=== PATIENT | female | born 1990 | race Caucasian/White ===

== ENCOUNTER 2016-12-12 15:01 | Day surgery (SDC) | payer SELFPAY ==
[2016-12-12 15:11] VITALS: BMI 19.1
--- NOTE | 2016-12-12 15:45 | PDOC ---
History of Present Illness - General Chief Complaint: Pain Stated Complaint: BACK PAIN Time Seen by Provider: 12/12/16 15:41 History Source: Patient Exam Limitations: No Limitations - History of Present Illness Travel History: No Initial Comments: 12/12/16 16:42 to emergency department with complaints of lower abdominal pain and cramping for the past 24 hours. has radiating pain to bilateral flanks but states primarily pain is in her lower abdomen's worse on the right than the left. Wasn' t sure about , but states had a normal menstrual period on November 13. Is control and has a 5-year-old son and a 3-year-old son denies vaginal drainage or discharge, denies any dysuria, pain or burning with void. Has had no history of kidney stones or UTI. Has no constipation/diarrhea/problems with bowel however feels nauseated. States pain is spasmodic and is unable to jump without reproduction of pain 12/13/16 14:24 12/13/16 14:24 Timing/Duration: reports: constant, getting worse Quality: reports: mild Abdominal Pain Onset Location: reports: RLQ, LLQ, generalized abdomen Activities at Onset: reports: none Aggravating Factors: improves with: None Past History - Travel Traveled outside of the country in the last 30 days: No Close contact w/someone who was outside of country & ill: No - Past Medical History Allergies/Adverse Reactions: Allergies Allergy/AdvReac Type Severity Reaction Status Date / Time Penicillins AdvReac Severe Rash Verified 12/12/16 15:11 Bee Allergy Severe swelling/ Uncoded 12/12/16 15:11 rash Home Medications: Ambulatory Orders Acetaminophen [Tylenol .Regular Strength -] 650 mg PO Q6H PRN #0 tablet Docusate Sodium [Colace -] 100 mg PO BID PRN #60 capsule 12/13/16 Ibuprofen [Motrin -] 600 mg PO Q6H PRN #0 tablet 12/13/16 Anemia: No Asthma: No Cancer: Yes (CERVICAL CA) Cardiac Disorders: No CVA: No COPD: No CHF: No Dementia: No Diabetes: No GI Disorders: No Disorders: No HTN: No Hypercholesterolemia: No Liver Disease: No Seizures: No Thyroid Disease: No - Suicide/Smoking/Psychosocial Hx Smoking Status: No Smoking History: Never smoked Have you smoked in the past 12 months: No Number of Cigarettes Smoked Daily: 0 Information on smoking cessation initiated: No Hx Alcohol Use: Yes (socially) Drug/Substance Use Hx: No Substance Use Type: None Hx Substance Use Treatment: No Review of Systems - Review of Systems Able to Perform ROS?: Yes Is the patient limited Nigerien proficient: Yes Constitutional: Yes: Symptoms Reported, See HPI, Chills, Fever, Malaise HEENTM: Yes: See HPI. No: Symptoms Reported Respiratory: Yes: Symptoms reported, See HPI, Cough ABD/GI: Yes: Symptoms Reported, See HPI, Nausea, Poor Appetite. No: Constipated , Diarrhea, Vomiting : Yes: Symptoms Reported, See HPI, Flank Pain. No: Burning, Dysuria, Discharge, Frequency Musculoskeletal: Yes: Symptoms Reported Integumentary: Yes: Symptoms Reported, See HPI, Pallor Neurological: Yes: Symptoms reported All Other Systems: Reviewed and Negative *Physical Exam - Vital Signs Last Vital Signs Temp Pulse Resp BP Pulse Ox 98.8 F 107 H 18 104/55 100 12/12/16 15:03 12/12/16 15:03 12/12/16 15:03 12/12/16 15:03 12/12/16 15:03 - Physical Exam General Appearance: Yes: Nourished, Appropriately Dressed, Apparent Distress, Mild Distress, Moderate Distress HEENT: positive: JOSEPH, Normal ENT Inspection, TMs Normal, Pharynx Normal Neck: positive: Supple. negative: Tender Respiratory/Chest: positive: Lungs Clear, Normal Breath Sounds Gastrointestinal/Abdominal: positive: Tender (to lower abdomen with rebound , worse on right than left. States pain radiates around to low back but is primarily right lower quadrant.), Soft, Guarding, Rebound. negative: Organomegaly Musculoskeletal: positive: Normal Inspection. 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 Patient's clinical impression is possible appendicitis versus ovarian pathology. Patient updated to plan to move to main emergency department for further evaluation and treatment. Preliminary labs obtained and ultrasound ordered of pelvis. Given to Dr. Loni Burton and will be transferred to room 12B *DC/Admit/Observation/Transfer Diagnosis at time of Disposition: OR - Discharge Dispostion Condition at time of disposition: Good - Prescriptions
[2016-12-12 16:25] LABS: PH,URINE 8.5 (5.0-8.0); URINE APPEARANCE CLEAR; URINE BILIRUBIN NEGATIVE (NEGATIVE); URINE BLOOD NEGATIVE (NEGATIVE); URINE COLOR LT. YELLOW; URINE GLUCOSE (UA) NEGATIVE (NEGATIVE); URINE KETONE 1+ (NEGATIVE); URINE LEUK ESTERASE NEGATIVE (NEGATIVE); URINE NITRITE NEGATIVE (NEGATIVE); URINE PROTEIN NEGATIVE (NEGATIVE); URINE UROBILINOGEN 0.2 mg/dL (0.2-1.0)
[2016-12-12 17:17] LABS: BASOPHIL 0.1 % (0-2.0); EOSINOPHIL 0.4 % (0-4.5); MCH 30.8 pg (25.7-33.7); MCHC 34.9 g/dl (32.0-36.0); MEAN CELL VOLUME 88.4 fl (80-96); MEAN PLT VOLUME 8.4 fl (7.5-11.1); NEUTROPHILS 85.1 % (42.8-82.8); PLATELET COUNT 224 K/MM3 (134-434); RDW 13.4 % (11.6-15.6); WHITE BLOOD COUNT 10.1 K/mm3 (4.0-10.0)
[2016-12-12] MEDS ORDERED: SODIUM CHLORIDE 1,000 ML IV STA ×2 (17:32→20:35)
--- NOTE | 2016-12-12 17:38 | PDOC ---
*Physical Exam - Vital Signs Last Vital Signs Temp Pulse Resp BP Pulse Ox 98.8 F 107 H 18 104/55 100 12/12/16 15:03 12/12/16 15:03 12/12/16 15:03 12/12/16 15:03 12/12/16 15:03 - Physical Exam Comments: 12/12/16 17:43 GENERAL: Awake, alert, and fully oriented, in no acute distress. Well appearing. HEAD: No signs of trauma EYES: PERRLA, EOMI, sclera anicteric, conjunctiva clear ENT: Auricles normal inspection, hearing grossly normal, nares patent, oropharynx clear without exudates. Moist mucosa NECK: Normal ROM, supple, no lymphadenopathy, JVD, or masses LUNGS: Breath sounds equal, clear to auscultation bilaterally. No wheezes, and no crackles HEART: Regular rate and rhythm, normal S1 and S2, no murmurs, rubs or gallops ABDOMEN: +diffuse abdominal tenderness that is worse in the RLQ. Soft, normoactive bowel sounds. No guarding, no rebound. No masses. MUSCULOSKELETAL: No CVA tenderness EXTREMITIES: Normal range of motion, no edema. No clubbing or cyanosis. No cords, erythema, or tenderness NEUROLOGICAL: Cranial nerves II through XII grossly intact. Normal speech, normal gait SKIN: Warm, Dry, normal turgor, no rashes or lesions noted. <Elma Hughes - Last Filed: 12/12/16 17:43> - Vital Signs Last Vital Signs Temp Pulse Resp BP Pulse Ox 98.8 F 107 H 18 104/55 100 12/12/16 15:03 12/12/16 15:03 12/12/16 15:03 12/12/16 15:03 12/12/16 15:03 <Casper Henry - Last Filed: 12/12/16 20:22> - Vital Signs Last Vital Signs Temp Pulse Resp BP Pulse Ox 98.8 F 107 H 18 104/55 100 12/12/16 15:03 12/12/16 15:03 12/12/16 15:03 12/12/16 15:03 12/12/16 15:03 <Julienne Burton - Last Filed: 12/13/16 17:41> ED Treatment Course - LABORATORY CBC & Chemistry Diagram: 12/12/16 15:55 12/12/16 16:48 - ADDITIONAL ORDERS Additional order review: Laboratory Results 12/12/16 16:15 Urine Color Lt. yellow Urine Appearance Clear Urine pH 8.5 H D Urine Protein Negative Urine Glucose (UA) Negative Urine Ketones 1+ H Urine Blood Negative Urine Nitrite Negative Urine Bilirubin Negative Urine Urobilinogen 0.2 Urine HCG, Qual Negative 12/12/16 15:55 RBC 4.64 MCV 88.4 MCHC 34.9 RDW 13.4 MPV 8.4 Neutrophils % 85.1 H Lymphocytes % 8.5 D Monocytes % 5.9 Eosinophils % 0.4 Basophils % 0.1 <Elma Hughes - Last Filed: 12/12/16 17:43> - LABORATORY CBC & Chemistry Diagram: 12/12/16 15:55 12/12/16 16:48 - ADDITIONAL ORDERS Additional order review: Laboratory Results 12/12/16 12/12/16 16:48 16:15 Sodium 134 L Potassium 3.6 Chloride 100 Carbon Dioxide 28 Anion Gap 6 L BUN 10 Creatinine 0.6 Creat Clearance w eGFR > 60 Random Glucose 80 Calcium 9.6 Total Bilirubin 1.6 H D AST 18 ALT 22 Alkaline Phosphatase 68 D Total Protein 8.2 Albumin 4.4 Lipase 111 Urine Color Lt. yellow Urine Appearance Clear Urine pH 8.5 H D Urine Protein Negative Urine Glucose (UA) Negative Urine Ketones 1+ H Urine Blood Negative Urine Nitrite Negative Urine Bilirubin Negative Urine Urobilinogen 0.2 Urine HCG, Qual Negative 12/12/16 15:55 RBC 4.64 MCV 88.4 MCHC 34.9 RDW 13.4 MPV 8.4 Neutrophils % 85.1 H Lymphocytes % 8.5 D Monocytes % 5.9 Eosinophils % 0.4 Basophils % 0.1 <Casper Henry - Last Filed: 12/12/16 20:22> - LABORATORY CBC & Chemistry Diagram: 12/12/16 15:55 12/12/16 16:48 - ADDITIONAL ORDERS Additional order review: Laboratory Results 12/12/16 16:15 Urine Color Lt. yellow Urine Appearance Clear Urine pH 8.5 H D Urine Protein Negative Urine Glucose (UA) Negative Urine Ketones 1+ H Urine Blood Negative Urine Nitrite Negative Urine Bilirubin Negative Urine Urobilinogen 0.2 Urine HCG, Qual Negative 12/12/16 15:55 RBC 4.64 MCV 88.4 MCHC 34.9 RDW 13.4 MPV 8.4 Neutrophils % 85.1 H Lymphocytes % 8.5 D Monocytes % 5.9 Eosinophils % 0.4 Basophils % 0.1 - RADIOLOGY Radiology Studies Ordered: Category Date Time Status ABDOMEN & PELVIS CT WITH CONTR [CT] Stat CT Scan 12/12/16 17:33 Ordered <Julienne Burton - Last Filed: 12/13/16 17:41> Medical Decision Making - Medical Decision Making 12/12/16 17:43 26 yr old female transferred from fast track with right flank pain and RLQ abdominal pain. RLQ pain feels like cramping, has progressively worsened throughout the day, and is exacerbated with walking She reports associated nausea, but denies vomiting. LMP was on 11/17/16. -Differential includes appendicitis vs kidney stone vs ovarian cyst -Will obtain CT -Pt declines pain medication at this time <Elma Hughes - Last Filed: 12/12/16 17:43> - Medical Decision Making 12/12/16 19:[address] Brewer. F/u CT, reassess. <Julienne Burton - Last Filed: 12/13/16 17:41> *DC/Admit/Observation/Transfer <Elma Hughes - Last Filed: 12/12/16 17:43> <Casper Henry - Last Filed: 12/12/16 20:22> <Julienne Burton - Last Filed: 12/13/16 17:41> Diagnosis at time of Disposition: OR - Discharge Dispostion Disposition: HOME Condition at time of disposition: Good - Prescriptions - Referrals - Patient Instructions - Post Discharge Activity
[2016-12-12 17:41] LABS: ALBUMIN 4.4 g/dl (3.4-5.0); ANION GAP 6 (8-16); BILIRUBIN,TOTAL 1.6 mg/dL (0.2-1.0); CALCIUM 9.6 mg/dL (8.5-10.1); CO2 28 mmol/L (21-32); CREATININE 0.6 mg/dL (0.55-1.02); GLUCOSE,RANDOM 80 mg/dL (74-106); SGOT/AST 18 U/L (15-37); SGPT/ALT 22 U/L (12-78)
[2016-12-12 17:43] LABS: ALK PHOS 68 U/L (45-117); TOT PROT 8.2 g/dl (6.4-8.2)
--- NOTE | 2016-12-12 20:01 | PDOC ---
*Physical Exam - Vital Signs Last Vital Signs Temp Pulse Resp BP Pulse Ox 98.8 F 107 H 18 104/55 100 12/12/16 15:03 12/12/16 15:03 12/12/16 15:03 12/12/16 15:03 12/12/16 15:03 - Physical Exam Comments: 12/12/16 21:24 GENERAL: Awake, alert, and fully oriented, in no acute distress HEAD: No signs of trauma EYES: PERRLA, EOMI, sclera anicteric, conjunctiva clear ENT: Auricles normal inspection, hearing grossly normal, nares patent, oropharynx clear without exudates. Moist mucosa NECK: Normal ROM, supple, no lymphadenopathy, JVD, or masses LUNGS: Breath sounds equal, clear to auscultation bilaterally. No wheezes, and no crackles HEART: Regular rate and rhythm, normal S1 and S2, no murmurs, rubs or gallops ABDOMEN: +Diffuse abdominal tenderness, +Right lower quadrant tenderness. EXTREMITIES: Normal range of motion, no edema. No clubbing or cyanosis. No cords, erythema, or tenderness NEUROLOGICAL: Cranial nerves II through XII grossly intact. Normal speech, normal gait SKIN: Warm, Dry, normal turgor, no rashes or lesions noted. <Casper Henry - Last Filed: 12/12/16 21:23> - Vital Signs Last Vital Signs Temp Pulse Resp BP Pulse Ox 98.8 F 107 H 18 104/55 100 12/12/16 15:03 12/12/16 15:03 12/12/16 15:03 12/12/16 15:03 12/12/16 15:03 <Franklin Brewer - Last Filed: 12/14/16 09:21> ED Treatment Course - LABORATORY CBC & Chemistry Diagram: 12/12/16 15:55 12/12/16 16:48 - ADDITIONAL ORDERS Additional order review: Laboratory Results 12/12/16 12/12/16 16:48 16:15 Sodium 134 L Potassium 3.6 Chloride 100 Carbon Dioxide 28 Anion Gap 6 L BUN 10 Creatinine 0.6 Creat Clearance w eGFR > 60 Random Glucose 80 Calcium 9.6 Total Bilirubin 1.6 H D AST 18 ALT 22 Alkaline Phosphatase 68 D Total Protein 8.2 Albumin 4.4 Lipase 111 Urine Color Lt. yellow Urine Appearance Clear Urine pH 8.5 H D Ur Specific [place] 1.015 Urine Protein Negative Urine Glucose (UA) Negative Urine Ketones 1+ H Urine Blood Negative Urine Nitrite Negative Urine Bilirubin Negative Urine Urobilinogen 0.2 Urine HCG, Qual Negative 12/12/16 15:55 RBC 4.64 MCV 88.4 MCHC 34.9 RDW 13.4 MPV 8.4 Neutrophils % 85.1 H Lymphocytes % 8.5 D Monocytes % 5.9 Eosinophils % 0.4 Basophils % 0.1 - RADIOLOGY Radiograph Interpretation: 12/12/16 21:23 EXAM#: TYPE/EXAM: RESULT: CT/ABDOMEN PELVIS CT WITH CONTR HISTORY PROVIDED: Right lower quadrant pain. Sequential axial images were obtained from the domes of the diaphragms through the symphysis pubis following the administration of intravenous contrast material. The lung bases are clear. The liver, spleen, pancreas, adrenal glands and kidneys demonstrate no significant abnormalities. There is no evidence of intra-abdominal or retroperitoneal lymphadenopathy or fluid collections. There is no evidence of pneumoperitoneum, bowel obstruction or intra-abdominal abscess. The appendix is slightly thickened and hyperemic. This is suggestive of acute appendicitis. No significant inflammatory changes are noted about the appendix. There is no evidence of a periappendiceal abscess. Clinical correlation is advised. There is also an involuting cyst of the right ovary measuring 1.6 cm with a trace amount of free fluid in the right adnexa. Examination of the pelvis demonstrates no evidence of pelvic masses, fluid collections or lymphadenopathy. There is no evidence of acute bony abnormalities. IMPRESSION: 1. Slightly thickened and hyperemic appendix suggesting acute appendicitis. No evidence of prior appendiceal abscess. 2. Involuting right ovarian cyst with trace free fluid in the right adnexal region. Please see above discussion. Reported By: Wilfrid Cadena MD 12/12/162047 <Casper Henry - Last Filed: 12/12/16 21:23> - LABORATORY CBC & Chemistry Diagram: 12/12/16 15:55 12/12/16 16:48 - ADDITIONAL ORDERS Additional order review: Laboratory Results 12/12/16 12/12/16 16:48 16:15 Sodium 134 L Potassium 3.6 Chloride 100 Carbon Dioxide 28 Anion Gap 6 L BUN 10 Creatinine 0.6 Creat Clearance w eGFR > 60 Random Glucose 80 Calcium 9.6 Total Bilirubin 1.6 H D AST 18 ALT 22 Alkaline Phosphatase 68 D Total Protein 8.2 Albumin 4.4 Lipase 111 Urine Color Lt. yellow Urine Appearance Clear Urine pH 8.5 H D Urine Protein Negative Urine Glucose (UA) Negative Urine Ketones 1+ H Urine Blood Negative Urine Nitrite Negative Urine Bilirubin Negative Urine Urobilinogen 0.2 Urine HCG, Qual Negative 12/12/16 15:55 RBC 4.64 MCV 88.4 MCHC 34.9 RDW 13.4 MPV 8.4 Neutrophils % 85.1 H Lymphocytes % 8.5 D Monocytes % 5.9 Eosinophils % 0.4 Basophils % 0.1 <Franklin Brewer - Last Filed: 12/14/16 09:21> Medical Decision Making - Medical Decision Making 12/12/16 19:[address] results to confirm or rule out possible appendicitis. <Casper Henry - Last Filed: 12/12/16 21:23> *DC/Admit/Observation/Transfer - Attestations Scribe Attestion: 12/12/16 20:23 Documentation prepared by Casper Henry, acting as medical transport specialist for Franklin Brewer DO. <Casper Henry - Last Filed: 12/12/16 21:23> - Discharge Dispostion Admit: Yes - Attestations Physician Attestion: 12/12/16 20:01 I, Dr. Franklin Brewer, attest that this document has been prepared under my direction and personally reviewed by me in its entirety. I further attest, that it accurately reflects all work, treatment, procedures and medical decision -making performed by me. <Franklin Brewer - Last Filed: 12/14/16 09:21> Diagnosis at time of Disposition: OR Appendicitis, acute Qualifiers: Acute appendicitis type: other Qualified Code(s): K35.89 - Other acute appendicitis - Discharge Dispostion Condition at time of disposition: Good - Prescriptions - Referrals - Patient Instructions - Post Discharge Activity
--- NOTE | 2016-12-12 21:25 | CONSULT ---
Consult - text type - Consultation Consultation Note: Pt seen and examined in ER. CT c/w appendicitis. Will admit [facility] for OR. See H&P for details.
--- NOTE | 2016-12-12 21:31 | HP ---
Admitting History and Physical - Primary Care Physician PCP: Bertha Walker - Admission Chief Complaint: R flank pain, lower abd pain History of Present Illness: 26yo healthy F with cold (stuffy/runny nose, h/a, lightheaded) starting 3d ago, presents with R flank pain beginning yesterday, associated with subjective fever. Today, she has lower abdominal pain across both sides, associated with anorexia, subjective chills and headache. At work, her boss had her try baking soda and water around 2pm, which helped some, but she came to ER later for persistent pain. In ER, she is afebrile, wbc 10.1, and CT shows slightly thickened, hyperemic appendix suggestive of appendicitis, also with involuting right ovarian cyst and some adnexal fluid. She admits to some nausea and constipation, but denies vomiting, diarrhea, or urinary problems. LMP was ~11/10 , finished 11/17. History Source: Patient Limitations to Obtaining History: No Limitations - Past Medical History Pulmonary: Yes: Asthma (on albuterol prn, no recent attack (pt denies when asked by me - used inhaler prn when had pneumonia 2y ago)), Pneumonia (2y ago) Reproductive: Yes: Other (had LEEP for precancerous cervical cells) ...LMP: 12/15/12 ...: No ...: 2 ...Para: 2 - Past Surgical History Additional Past Surgical History: LEEP (cervix) - Smoking History Smoking history: Never smoked Have you smoked in the past 12 months: No Aproximately how many cigarettes per day: 0 - Alcohol/Substance Use Hx Alcohol Use: Yes (socially) History of Substance Use: reports: None - Social History Usual Living Arrangement: Yes: With Significant Other, With Child (x2) ADL: Independent 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 denies: Recent Change in Vision HENT: reports: Nasal Congestion (cold last 3 days, stuffy/runny nose, headache, lightheaded at times). denies: Difficult Swallowing, Throat Pain Neck: denies: Swollen Glands, Tenderness Cardiovascular: reports: Chest Pain (pressure associated with feeling of suffocation happens occasionally - lasts ~15 mins, occurs when stressed, seen once at urgent care during episode but they didn't find anything), Shortness of Breath (see comment). denies: Palpitations Respiratory: reports: SOB on Exertion ("when I run"). denies: Cough Gastrointestinal: reports: Abdominal Pain (occasional sharp tugging pains from umbilicus downward), Constipation, Nausea (with hpi). denies: Diarrhea, Vomiting Genitourinary: denies: Burning, Dysuria Musculoskeletal: reports: Back Pain (lower - Advil prn). denies: Joint Pain, Muscle Pain Integumentary: denies: Change in Color, Rash Neurological: reports: Headache (with cold last few days). denies: Dizziness Psychiatric: denies: Anxiety, Depression Physical Examination Vital Signs: Vital Signs Temperature 98.8 F 12/12/16 15:03 Pulse Rate 107 H 12/12/16 15:03 Respiratory Rate 18 12/12/16 15:03 Blood Pressure 104/55 12/12/16 15:03 O2 Sat by Pulse Oximetry (%) 100 12/12/16 15:03 Constitutional: Yes: Well Nourished, No Distress, Calm Eyes: Yes: Conjunctiva Clear, EOM Intact HENT: Yes: Atraumatic, Normocephalic Neck: Yes: Supple, Trachea Midline Cardiovascular: Yes: Tachycardia (mild). No: Pulse Irregular Respiratory: Yes: Regular, CTA Bilaterally. No: Wheezes Gastrointestinal: Yes: Normal Bowel Sounds, Soft, Hernia (tiny umbilical palpable defect), Tenderness (RLQ, less LLQ; no moses/guard). No: Distention ...Rectal Exam: Yes: Deferred Renal/: No: CVA Tenderness - Left, CVA Tenderness - Right Musculoskeletal: No: Joint Stiffness, Joint Swelling Extremities: No: Cool, Cyanosis Edema: No Peripheral Pulses WNL: Yes Integumentary: No: Jaundice, Rash Neurological: Yes: Alert, Oriented Psychiatric: Yes: Alert, Oriented Labs: CBC, BMP 12/12/16 15:55 12/12/16 16:48 CMP Sodium 134 mmol/L (136-145) L 12/12/16 16:48 Potassium 3.6 mmol/L (3.5-5.1) 12/12/16 16:48 Chloride 100 mmol/L (98-107) 12/12/16 16:48 Carbon Dioxide 28 mmol/L (21-32) 12/12/16 16:48 Anion Gap 6 (8-16) L 12/12/16 16:48 BUN 10 mg/dL (7-18) 12/12/16 16:48 Creatinine 0.6 mg/dL (0.55-1.02) 12/12/16 16:48 Creat Clearance w eGFR > 60 (>60) 12/12/16 16:48 Random Glucose 80 mg/dL (74-106) 12/12/16 16:48 Calcium 9.6 mg/dL (8.5-10.1) 12/12/16 16:48 Total Bilirubin 1.6 mg/dL (0.2-1.0) H D 12/12/16 16:48 AST 18 U/L (15-37) 12/12/16 16:48 ALT 22 U/L (12-78) 12/12/16 16:48 Alkaline Phosphatase 68 U/L (45-117) D 12/12/16 16:48 Total Protein 8.2 g/dl (6.4-8.2) 12/12/16 16:48 Albumin 4.4 g/dl (3.4-5.0) 12/12/16 16:48 Lipase 111 U/L (73-393) 12/12/16 16:48 Imaging - Results Cat Scan: Report Reviewed, Image Reviewed Problem List - Problems (1) Appendicitis, acute Assessment/Plan: admit 23[facility] NPO/IVF Discussed with patient risks, benefits and alternatives of laparoscopic possible open appendectomy, including but not limited to bleeding, infection, injury to adjacent structures, leak or injury, intraabdominal abscess, need for further procedures; alternatives include antibiotics, delayed or no surgery - risks of this include failure of nonoperative therapy, perforation, sepsis, recurrence. Patient desires to proceed with operation - will take to OR for above. Informed consent signed for same. periop antibiotics anticipate resuming po postop pain meds prn dvt prophylaxis likely d/c home tomorrow when ambulating, voiding, surinder po, oral pain meds Code(s): K35.80 - UNSPECIFIED ACUTE APPENDICITIS Qualifiers: Acute appendicitis type: other Qualified Code(s): K35.89 - Other acute appendicitis
[2016-12-12] MEDS ORDERED: LEVOFLOXACIN 500 MG IVPB 100 ML IVPB ONE ×2 (22:16→22:53)
[2016-12-12] MEDS ORDERED: METRONIDAZOLE 500 MG PREMIXED 100 ML IVPB ONE ×2 (22:17→22:51)
[2016-12-12] MEDS ORDERED: PROPOFOL 20 ML ONE (22:39)
[2016-12-12] MEDS ORDERED: ROCURONIUM BROMIDE 50 MG/5 ML VIAL ONE (22:39)
[2016-12-12] MEDS ORDERED: BUPIVACAINE HCL/PF 0.5% (5MG/ML) 10 ML VIAL ONE (22:41)
[2016-12-12] MEDS ORDERED: LEVOFLOXACIN 500 MG PREMIX BAG IVPB ONE (23:02)
[2016-12-12] MEDS ORDERED: ONDANSETRON 4 MG/2 ML VIAL ONE (23:02)
[2016-12-12] MEDS ORDERED: DEXAMETHASONE SOD PHOSPHATE 4 MG/1 ML VIAL ONE (23:02)
[2016-12-12] MEDS ORDERED: NEOSTIGMINE METHYLSULFATE 0.5 MG/ML - 10 ML MDV ONE (23:48)
[2016-12-12] MEDS ORDERED: LIDOCAINE HCL 1%, 10 MG/ML (20ML VIAL) INF ONE (23:50)
[2016-12-13] MEDS ORDERED: ONDANSETRON 4 MG/2 ML VIAL ONE (00:04)
[2016-12-13] MEDS ORDERED: GLYCOPYRROLATE 0.2 MG/1 ML VIAL ONE (00:04)
[2016-12-13] MEDS ORDERED: ONDANSETRON 4 MG/2 ML VIAL IVPUSH PRN ×2 (00:13→00:30)
[2016-12-13] MEDS ORDERED: HYDROmorphone HCL CARPU-JECT 1 MG/1 ML DISP.SYRIN IVPUSH PRN (00:13)
[2016-12-13] MEDS ORDERED: LACTATED RINGERS SOLUTION 1,000 ML IV SCH ×2 (00:15→00:30)
[2016-12-13] MEDS ORDERED: HYDROmorphone HCL CARPU-JECT 2 MG/1 ML DISP.SYRIN ONE (00:15)
[2016-12-13] MEDS ORDERED: KETOROLAC TROMETHAMINE 30 MG/1 ML VIAL ONE (00:15)
[2016-12-13] MEDS ORDERED: ACETAMINOPHEN 325 MG TABLET (FP) PO PRN ×2 (00:16→00:30)
--- NOTE | 2016-12-13 00:16 | OP ---
Operative Note - Note: Operative Date: 12/12/16 Pre-Operative Diagnosis: acute appendicitis Operation: laparoscopic appendectomy Findings: injected, mildly inflamed appendix, hyperemic at base Post-Operative Diagnosis: Same as Pre-op Surgeon: Anand Parker Anesthesiologist/COMMANDING OFFICER MOTORIZED SQUAD: Morgan Davila Anesthesia: General, Local (10ml 1% lidocaine + 0.5% marcaine) Specimens Removed: appendix to pathology Estimated Blood Loss (mls): 5 Drains & Tubes with Location: Ta removed at end of case Drains, Volume Out (mls): 175 (UOP) Fluid Volume Replaced (mls): 700 (crystalloid) Operative Report Dictated: Yes
[2016-12-13] MEDS ORDERED: oxyCODONE HCL 5 MG TABLET PO PRN ×2 (00:17→00:30)
[2016-12-13] MEDS ORDERED: IBUPROFEN 600 MG TABLET (FP) PO PRN ×2 (00:17→06:00)
[2016-12-13] MEDS ORDERED: morphine CARPU-JECT 2 MG/1 ML DISP.SYRIN IVPUSH PRN ×2 (00:19→00:30)
[2016-12-13] MEDS: METRONIDAZOLE 500 MG PREMIXED 100 ML IVPB SCH ×2 (06:10→10:13)
[2016-12-13] MEDS ORDERED: METRONIDAZOLE 500 MG PREMIXED 100 ML IVPB SCH (07:00)
[2016-12-13 07:21] VITALS: BP 89/50; PULSE 58; TEMP 97.7
--- NOTE | 2016-12-13 09:18 | PN ---
Progress Note (short form) - Note Progress Note: Post op day#1.S/P Laproscopic appendectomy under GA uneventful.Patient stable and has little pain for which she is on medication.No any anesthesia related problem.Patient DC from the anesthesia care.
[2016-12-13] MEDS ORDERED: DOCUSATE SODIUM 100 MG CAPSULE (FP) PO SCH ×2 (10:00)
--- NOTE | 2016-12-13 11:13 | DS ---
Physical Examination Vital Signs: Vital Signs Temperature 97.7 F 12/13/16 07:21 Pulse Rate 58 L 12/13/16 07:21 Respiratory Rate 16 12/13/16 07:21 Blood Pressure 89/50 12/13/16 07:21 O2 Sat by Pulse Oximetry (%) 95 12/13/16 02:37 Constitutional: Yes: Well Nourished, No Distress, Calm Cardiovascular: Yes: Regular Rate and Rhythm. No: Murmur Respiratory: Yes: Regular, CTA Bilaterally Gastrointestinal: Yes: Normal Bowel Sounds, Soft, Tenderness (incisional, no R/G , less RLQ). No: Distention Integumentary: Yes: Incision (x3). No: Rash Wound/Incision: Yes: Steri Strips (under dressings), Dressing Dry and Intact Neurological: Yes: Alert, Oriented Labs: no new labs Discharge Summary Reason For Visit: ACUTE APPENDICITIS Current Active Problems Appendicitis, acute (Acute) Procedures: Principal: laparoscopic appendectomy Hospital Course: 26yo healthy F presented with 1 day of R flank pain migrating to bilateral lower abdominal pain, associated with some anorexia, nausea, headache, f/c, but no diarrhea or vomiting. She tends to constipation. In the ER, she was afebrile with wbc 10.1, and CT showed slightly thickened and hyperemic appendix suggestive of acute appendicitis. She was taken to OR for uneventful laparoscopic appendectomy. Postop course has been unremarkable; she is ambulating, voiding, tolerating diet and with mild discomfort controlled with nonnarcotic oral pain meds. She will be d/c home with lifting restrictions to f/ u in 2 weeks and with her PMD. Time spent on discharge: 35 minutes Condition: Good - Instructions Diet, Activity, Other Instructions: Postoperative instructions: You had a laparoscopic appendectomy on 12/12/[address] Anand Parker of [facility]. Activity: Resume your usual activities gradually, but no heavy exertion or lifting more than 10-15 pounds for 1 month. Remove dressings 48 hours after surgery; sticky tapes underneath will fall off by themselves. You may shower daily starting then, just pat the incision areas dry. No bath or swimming until skin incisions have healed. Eat lightly at first, but advance to your usual diet as tolerated. Pain: For pain, you may use and alternate Tylenol (acetaminophen) and/or ibuprofen every 6 hours each as needed; this means that you can take one OR the other at 3-hour intervals. If you are prescribed a Tylenol/narcotic combination for severe pain, use it instead of plain Tylenol as needed and switch back when your pain starts decreasing. Do not take more than 4000mg of acetaminophen in a day. Take medications as prescribed or indicated on the labeling. Use a stool softener as directed to keep your stools soft and moving; drink plenty of fluids. Follow-up: Call Dr. Parker's office at [phone] to make your postop appointment (Thursday ~2 weeks after surgery). Clinic is held in the [facility] on the first floor of [facility]. Call the office if you have: * increasing pain not responsive to pain medication * fever of 101F or higher * vomiting * unusual or increasing bleeding or drainage from wounds * increasing redness or swelling at wound sites * inability to urinate Also, see your primary medical doctor within 1-2 weeks. Referrals: Bertha Walker NP [Primary Care Provider] - Disposition: HOME - Home Medications Comprehensive Discharge Medication List: Ambulatory Orders Acetaminophen [Tylenol .Regular Strength -] 650 mg PO Q6H PRN #0 tablet Docusate Sodium [Colace -] 100 mg PO BID PRN #60 capsule 12/13/16 Ibuprofen [Motrin -] 600 mg PO Q6H PRN #0 tablet 12/13/16
--- NOTE | 2016-12-14 20:52 | OP ---
DATE OF OPERATION: 12/12/2016 PREOPERATIVE DIAGNOSIS: Acute appendicitis. POSTOPERATIVE DIAGNOSIS: Acute appendicitis. PROCEDURE: Laparoscopic appendectomy. SURGEON: Anand Parker MD ANESTHESIA: General endotracheal and local 10 mL of 1% lidocaine plus 0.5% Marcaine. ESTIMATED BLOOD LOSS: 5 mL. FLUIDS: 700 mL of crystalloid. URINE OUTPUT: 175 mL. SPECIMEN: Appendix to Pathology. FINDINGS: An injected, mildly inflamed appendix, which was hyperemic at the base. DISPOSITION: Stable and extubated to PACU. INDICATIONS FOR PROCEDURE: The patient is a healthy 26-year-old female who presented to the emergency room having had a cold that started 3 days prior, and right flank pain beginning the day prior, associated with subjective fever. The day of presentation, this changed to low abdominal pain across both sides, associated with anorexia, subjective chills, and a headache. In the ER, she was afebrile with a white count of 10.1, and a CT was done that showed a slightly thickened, hyperemic appendix, suggestive of appendicitis, and also an involuting right ovarian cyst with some adnexal fluid. Risks, benefits, and alternatives of laparoscopic possible open appendectomy, including but not limited to bleeding, infection, injury to adjacent structures, leak or intraabdominal abscess and need for further procedures were discussed with the patient, who wished to proceed with OR and signed informed consent for the same. She was given fluids in the emergency room. Antibiotics were given immediately preoperatively in the OR. OPERATIVE TECHNIQUE: The patient was brought to the operating room and laid supine on the operating table. Sequential compression devices were applied to bilateral lower extremities. As the patient is PENICILLIN allergic, 500 mg of levofloxacin and 500 mg of Flagyl were administered immediately prior to surgery. After induction and intubation by Anesthesia, the patient's lower abdomen was prepped and draped in sterile fashion, after a Ta catheter was placed in her bladder, which was removed at the end of the case. A small infraumbilical midline incision was made with a scalpel and carried into subcutaneous tissues with electrocautery until the abdominal wall fascia was identified, scored and elevated with Bridgette clamps. The peritoneum was entered bluntly with the tip of a clamp, and a fingertip used to ensure entry into the abdominal cavity and the absence of any underlying adhesions. A stay stitch of 0 Vicryl was then placed in [id number] fashion in the fascia for later closure, and a Tano trocar introduced directly into the abdominal cavity and secured in place with the balloon. The abdomen was insufflated with carbon dioxide. The patient was placed in Trendelenburg position with the right side planed upward, and the laparoscope inserted to inspect the abdominal cavity. As the omentum and some bowel slid out of the patient's pelvis secondary to positioning, some yellow fluid was visible in the pelvis above the uterus, which was later suctioned out. Two additional 5-mm ports were placed under direct vision in the left lower quadrant and suprapubic areas, and the camera switched to the left lower quadrant port. Graspers were introduced through the other 2 ports, and the small bowel was manipulated medially away from the right lower quadrant, revealing the appendix curled in the right lower quadrant. It was noted to be mildly injected and hyperemic, particularly at the base where it joined the cecum. The appendix was grasped and elevated, and a [place] dissector used to create a window in the mesoappendix at the base. Once this window had been created, a 45 blue load of the Endo NAMAN stapler was introduced and used to transect the appendix right at the cecal junction. The appendix was then again held up, and the mesoappendix transected with a 60 white load of the Endo NAMAN stapler. The appendix was then placed in an EndoCatch bag and retrieved out the umbilical port site and passed off the table for a pathology specimen. Unfortunately, the trocar inadvertently got dropped off of the field, but a fingertip was kept in the umbilical port site to maintain pneumoperitoneum , and the camera kept in the left lower quadrant port to inspect the operative site, which was noted to have no bleeding from the staple lines and no fluid or blood accumulation in the right lower quadrant. The suction waiter/waitress was then used through the suprapubic site to suction the yellow fluid from the pelvis and to lift up the uterus to see whether there was any fluid deeper than that, and there did not appear to be any. Thus the suprapubic port was also removed under direct vision, and then the other port and the camera were also removed from the abdominal cavity, which was exsufflated of carbon dioxide. The stay suture at the umbilical port site was tied to close the fascia there, after the patient was returned to neutral position. Hemostasis was achieved in the port sites with electrocautery where necessary, and local anesthetic was infiltrated into each site. The skin was closed with 4-0 Vicryl subcuticular sutures, including a running at the umbilical site. Benzoin and Steri-Strips were applied to the incisions, and dressings of gauze and Tegaderm were placed over these. The patient's Ta catheter was then removed from her bladder. The counts were correct at the end of the procedure. The patient was then awakened and extubated by Anesthesia. She was moved back to a stretcher and taken to the recovery room in stable condition, having tolerated the procedure well. Felipe [id number] MTDD
--- NOTE | 2016-12-16 14:17 | PATH ---
Surgical Pathology Report Patient Name: LOU RIVAS [facility]. Rec. #: [id number] /Age/Gender: 1990 (Age: 26) / F Account: [id number] Location: [facility] SURGICAL Taken: 12/12/2016 Received: 12/15/2016 Reported: 12/16/2016 Physicians: Anand Parker M.D. Specimen(s) Received APPENDIX Clinical History Acute appendicitis Final Diagnosis APPENDIX, APPENDECTOMY: ACUTE APPENDICITIS. Electronically Signed Gabino Mehta M.D. Gross Description Received in formalin, labeled "appendix" is a 5.2 cm in length vermiform appendix with a stapled margin of resection and attached fat. The serosa is ruth-lala. Sectioning reveals a focally dilated lumen. The wall of the appendix averages 0.2 cm in thickness. Slitter Service And Setter sections are submitted in one cassette. AF/12/15/2016 final/12/15/2016
== END 2016-12-13 15:11 | disposition home or self-care (01) ==
LOC: JER 15:01 → JERFT 15:01 → JASU-SURG 22:46 → J5S 12-13 01:05 → JASU-SURG 12-13 15:11
PROVIDERS: ATTEND Surgery
PROC: 0DTJ4ZZ Resection of Appendix, Percutaneous Endoscopic Approach (ICD-10-PCS; principal; 2016-12-12 22:30)
DX: K35.89 Other acute appendicitis (principal)
CPT/HCPCS: 36415; 74177-TC; 80053; 81003; 83690; 84703; 85025; 88304-TC; 94760; 99284-25

== ENCOUNTER 2018-07-21 10:55 | Inpatient (IN) | payer OTHER ==
[2018-07-21] MEDS ORDERED: OXYTOCIN 20 UNITS in 0.9% NS 20 UNIT/1,000 ML INFUS.BAG IV ONE (11:22)
[2018-07-21] MEDS: OXYTOCIN 20 UNITS in 0.9% NS 20 UNIT/1,000 ML INFUS.BAG IV SCH (11:23)
[2018-07-21] MEDS ORDERED: MISOPROSTOL 200 MCG TABLET PV ONE ×2 (11:30→17:30)
[2018-07-21] MEDS ORDERED: ELECTROLYTE-148 SOLN 1,000 ML IV SCH (11:45)
[2018-07-21] MEDS ORDERED: METHYLERGONOVINE MALEATE 0.2 MG/1 ML AMP IM PRN (11:45)
[2018-07-21] MEDS ORDERED: BENZOCAINE 20% 57 GM BOTTLE TP PRN (11:45)
[2018-07-21] MEDS ORDERED: WITCH HAZEL 50% (TUCKS) 40 PAD/JAR PAD TP PRN (11:45)
[2018-07-21] MEDS ORDERED: BISACODYL 10 MG SUPP.RECT RC PRN (11:45)
[2018-07-21] MEDS ORDERED: BENZOCAINE 28 GM HEMORRHOIDAL OINTMENT TP PRN (11:45)
--- NOTE | 2018-07-21 11:58 | HP ---
Past Medical History - Primary Care Physician PCP:: Merlin Villaseñor - Admission Chief Complaint: labor History of Present Illness: Active labor History Source: Patient Limitations to Obtaining History: Clinical Condition - Past Medical History PEARL HAND: No: Alzheimer's, CVA, Dementia, Migraine, Multiple Sclerosis, Peripheral Neuropathy, Parkinson's, Seizure, Syncope, TIA, Vertigo, Other Cardiovascular: No: AFIB, Aneurysm, Aortic Insufficiency, Aortic Stenosis, CAD, CHF, Deep Vein Thrombosis, HTN, Hyperlipdemia, CT, Mitral Insufficiency, Mitral Stenosis, Murmur, Pulmonary Hypertension, Other Pulmonary: Yes: Asthma (on albuterol prn, no recent attack (pt denies when asked by me - used inhaler prn when had pneumonia 2y ago)), Pneumonia (2y ago) Gastrointestinal: Yes: Other (Append) Hepatobiliary: No: Cirrhosis, Cholelithiasis, Cholecystitis, Choledocholithiasis , Hepatitis A, Hepatitis B, Hepatitis C, Other Renal/: No: Renal Failure, Renal Inusuff, BPH, Cancer, Hematuria, Hemodialysis , Neurogenic Bladder, Renal Calculi, UTI, Other Reproductive: No: Ectopic , Endometriosis, Fibroids, PID, Polycystic Ovary Syndrome, Postmenopausal, Other ...: 5 ...Para: 2 ...Term: 2 ...: 0 ...Induced : 2 ... Weeks Gestation by Dates: 40.0 ...EDC by Lissette: 07/21/18 Heme/Onc: No: Anemia, B12 Deficiency, Bleeding Disorder, Cancer, Current Chemotherapy, Current Radiation Therapy, Hemochromatosis, Hypercoaguable State, Myeloproliferative Synd, Sickle Cell Disease, Sickle Cell Trait, Thrombocytopenia, Other Infectious Disease: No: AIDS, C-Diff, Herpes Zoster, HIV, MRSA, STD's, Tuberculosis, VREF, Other Psych: No: Addictions, Anxiety, Bipolar, Depression, Panic, Psychosis, Schizophrenia, Other Musculoskeletal: No: Bursitis, Chronic low back pain, Hemiparesis, Hemiplegia, Osteoarthritis, Paraplegia, Other Rheumatology: No: Fibromyalgia, Gout, Lupus, Rheumatoid Arthritis, Sarcoidosis, Vasculitis, Other ENT: No: Allergic Rhinitis, Sinusitis, Other Endocrine: No: Bynum's Disease, Mary's Disease, Diabetes Insipidus, Diabetes Mellitus, Hyperparathyroidism, Hyperthyroidism, Hypothyroidism, Osteopenia, SIADH, Other Dermatology: No: Basal Cell, Cellulitis, Eczema, Melanoma, Psoriasis, Squamous Cell, Other - Past Surgical History Past Surgical History: Yes: Appendectomy Hx Myomectomy: No Hx Transabdominal Cerclage: No - Smoking History Smoking history: Never smoked Have you smoked in the past 12 months: No Aproximately how many cigarettes per day: 0 - Alcohol/Substance Use Hx Alcohol Use: Yes (socially) History of Substance Use: reports: None. denies: Cocaine, Heroin, Marijuana, Prescription, Tranquilizers - Social History Usual Living Arrangement: No: Alone, With Spouse, With Parent, With Significant Other, With Child, Assisted Living, Skilled Nursing, Other ADL: Independent Occupation: [employer] Home Medications - Allergies Allergies/Adverse Reactions: Allergies Allergy/AdvReac Type Severity Reaction Status Date / Time Penicillins Allergy Severe Hives Verified 07/21/18 12:04 agave Allergy Severe Hives Uncoded 07/21/18 12:04 Bee Allergy Severe swelling/ Uncoded 07/21/18 12:04 rash - Home Medications Home Medications: Ambulatory Orders Vits96/Iron Fum/Folic [ Tablet] 1 each PO DAILY 07/21/18 Physical Exam - Maternity Constitutional: No: Well Nourished, No Distress, Calm, Anxious, Ashen, Cachectic , Diaphoresis, Mild Distress, Moderate Distress, Severe Distress, Obese, Pallor , Poor Hygeine, Thin, Other HENT: No: WNL, Atraumatic, Normocephalic, Drooling, Epistaxis, Hoarseness, Nasal Congestion, Pharyngeal Erythema, Rhinnorhea, Thrush, Tonsillar Exudate, Other Neck: No: WNL, Supple, Trachea Midline, Decreased ROM, Lymphadenopathy, Rigid, Tenderness, Thyromegaly, Other Breast(s): Yes: Other (declined) - Abdominal Exam/OB Number of Fetuses: Single Presentation: Vertex Contractions: Yes Regularity: Regular Intensity: Strong Monitor Mode: External Category: II - Vaginal Exam/OB Vaginal Bleediing: No Speculum Exam: No Dilatation (cm): 9 Effacement (%): 100 Amniotic Membrane Status: Intact Amniotic Fluid: Yes: Clear Presentation: Vertex/Position Assessment/Plan 27 y/o @ 40.0 wks in active labor ready to deliver -Expectant management
--- NOTE | 2018-07-21 12:16 | PN ---
Delivery - Delivery Vaginal Delivery: No Problems, Spontaneous Type of Anesthesia: None Episiotomy/Laceration: None (Infant's head delivered spontaneously OA and restituted to EVA with compound hand. No nuchal cord and shoulders delivered w/ o difficulty followed by the rest of the body. NICU attending present at delivery. Cord was clamped and cut after delay. Placenta delivered spontaneously and intact, 3VC. Exam revealed no lacerations and fundus is firm. EBL is 150ml and misoprostol 1000mcg administered prophylactically. Sponge/ Instrument count is correct x 2 and confirm by Nurse.) EBL (cc): 150
[2018-07-21 12:24] LABS: ARTERIAL BLD GAS O2 SATURATION 38.7 % (95-98); ARTERIAL BLOOD GAS BASE EXCESS -0.9 meq/l (-2-2); ARTERIAL BLOOD GAS PCO2 34.2 mmHg (35-45)
[2018-07-21 12:26] LABS: ALLENS TEST POSITIVE
[2018-07-21 12:27] LABS: ARTERIAL BLOOD GAS pH 7.43 (7.35-7.45)
[2018-07-21 12:29] LABS: ARTERIAL BLOOD GAS PO2 19.1 mmHg (80-105)
[2018-07-21 12:31] LABS: VENOUS PC02 21.7 mmHg (41-51); VENOUS PH 7.54 (7.31-7.41); VENOUS PO2 30.3 mmHg (30-40)
[2018-07-21 12:35] LABS: BASO % 0.3 % (0-2.0); EOS % 0.1 % (0-4.5); HEMATOCRIT 37.4 % (32.4-45.2); LYMPH % 6.9 % (8-40); MCH 31.5 pg (25.7-33.7); MCHC 34.9 g/dl (32.0-36.0); MEAN CELL VOLUME 90.3 fl (80-96); MEAN PLT VOLUME 8.7 fl (7.5-11.1); NEUT % 88.7 % (42.8-82.8); PLATELET COUNT 196 K/MM3 (134-434); RBC 4.14 M/mm3 (3.60-5.2); RDW 13.9 % (11.6-15.6); WHITE BLOOD COUNT 9.8 K/mm3 (4.0-10.0)
[2018-07-21 12:53] LABS: INR 0.86 (0.83-1.09); PROTHROMBIN TIME (PATIENT) 10.1 SEC (9.7-13.0)
[2018-07-21] MEDS ORDERED: FENTANYL/BUPIVACAINE/NS/PF - PCEA - 50 ML DISP.SYRIN EP ONE (12:56)
[2018-07-21] MEDS ORDERED: IBUPROFEN 600 MG TABLET (FP) PO ONE (12:59)
[2018-07-21 13:04] LABS: ANION GAP 9 MMOL/L (8-16); BLOOD UREA NITROGEN 10 mg/dL (7-18); CALCIUM 8.3 mg/dL (8.5-10.1); CHLORIDE 105 mmol/L (98-107); CO2 23 mmol/L (21-32); CREATININE 0.6 mg/dL (0.55-1.3); GLUCOSE,RANDOM 72 mg/dL (74-106); POTASSIUM 3.9 mmol/L (3.5-5.1); SODIUM 136 mmol/L (136-145)
[2018-07-21] MEDS: IBUPROFEN 600 MG TABLET (FP) PO PRN ×2 (13:10→21:29)
[2018-07-21] MEDS ORDERED: METHYLERGONOVINE MALEATE 0.2 MG/1 ML AMP IM ONE (13:11)
--- NOTE | 2018-07-21 13:31 | PN ---
Progress Note (short form) - Note Progress Note: Patient evaluated for increased vaginal bleeding. She denies any complaints and she is alert and oriented x 3 vitals: WNL as per nursing SVE: 200ml of clots removed from lower uterine segment and fundus is firm, no active bleeding A/P: PPD # 0 with EBL of 350 overall, S/P rectal misoprostol prophylactically -Methergine Series -Close monitoring -Continue pitocin and IV fluid
[2018-07-21] MEDS: METHYLERGONOVINE MALEATE 0.2 MG TABLET (FP) PO SCH ×2 (17:16→21:29)
[2018-07-21] MEDS: ACETAMINOPHEN 325 MG TABLET (FP) PO PRN (21:29)
[2018-07-22] MEDS: METHYLERGONOVINE MALEATE 0.2 MG TABLET (FP) PO SCH ×4 (01:13→13:00)
[2018-07-22 08:41] LABS: EOS % 0.1 % (0-4.5); HEMATOCRIT 30.8 % (32.4-45.2); HEMOGLOBIN 10.8 GM/dL (10.7-15.3); LYMPH % 4.8 % (8-40); MCH 31.6 pg (25.7-33.7); MCHC 34.9 g/dl (32.0-36.0); MEAN CELL VOLUME 90.5 fl (80-96); MEAN PLT VOLUME 8.3 fl (7.5-11.1); MONO % 2.3 % (3.8-10.2); NEUT % 92.8 % (42.8-82.8); PLATELET COUNT 141 K/MM3 (134-434); RDW 13.7 % (11.6-15.6); WHITE BLOOD COUNT 7.2 K/mm3 (4.0-10.0)
[2018-07-22 11:24] LABS: PLATELET ESTIMATE DECREASED
[2018-07-22 14:14] LABS: HEMOGLOBIN 10.9 GM/dL (10.7-15.3); LYMPH % 2.1 % (8-40); MCH 31.1 pg (25.7-33.7); MEAN CELL VOLUME 91.6 fl (80-96); MEAN PLT VOLUME 7.8 fl (7.5-11.1); MONO % 1.5 % (3.8-10.2); NEUT % 96.4 % (42.8-82.8); PLATELET COUNT 140 K/MM3 (134-434); RDW 14.1 % (11.6-15.6)
[2018-07-22 14:26] LABS: INR 0.97 (0.83-1.09); PROTHROMBIN TIME (PATIENT) 11.4 SEC (9.7-13.0)
[2018-07-22] MEDS: ACETAMINOPHEN 325 MG TABLET (FP) PO PRN ×2 (14:27→17:18)
[2018-07-22] MEDS: IBUPROFEN 600 MG TABLET (FP) PO PRN ×2 (14:27→17:18)
[2018-07-22 14:29] LABS: ACTIVATED PTT 29.1 SECONDS (25.2-36.5)
[2018-07-22 14:40] LABS: ALK PHOS 190 U/L (45-117); ANION GAP 8 MMOL/L (8-16); BLOOD UREA NITROGEN 7 mg/dL (7-18); CALCIUM 7.9 mg/dL (8.5-10.1); CHLORIDE 107 mmol/L (98-107); CO2 21 mmol/L (21-32); CREATININE 0.5 mg/dL (0.55-1.3); GLUCOSE,RANDOM 100 mg/dL (74-106); POTASSIUM 3.3 mmol/L (3.5-5.1); SGOT/AST 24 U/L (15-37); SGPT/ALT 18 U/L (13-61); SODIUM 136 mmol/L (136-145)
[2018-07-22 15:01] LABS: ANISOCYTOSIS 0; MACROCYTOSIS 0; PLATELET ESTIMATE DECREASED
[2018-07-22] MEDS ORDERED: AZTREONAM 2 GM in DEXTROSE 5%-WATER 100 ML IVPB ONE (15:15)
[2018-07-22] MEDS ORDERED: VANCOMYCIN 1,000 MG in DEXTROSE 5%-WATER - 250 ML IVPB ONE (15:17)
[2018-07-22] MEDS ORDERED: SODIUM CHLORIDE 1,000 ML IV STA (15:19)
--- NOTE | 2018-07-22 15:20 | RAPID ---
Physical Examination Vital Signs: Vital Signs Temperature 97.7 F 07/22/18 09:21 Pulse Rate 100 H 07/22/18 09:21 Respiratory Rate 18 07/22/18 09:21 Blood Pressure 84/55 L 07/22/18 09:21 O2 Sat by Pulse Oximetry (%) Labs: CBC, BMP 07/22/18 13:53 07/22/18 13:53 Rapid Response - Rapid Response Assessment: Rapid response called at 2:57pm. Rapid response team arrived. As per nursing, patient had vaginal delivery yesterday. At around 2pm, she was reported to have temp of 102. At that time sepsis work-up was done. CBC, blood culture, ua and ID was consulted, IV fluids started. A repeat rectal temp revealed 105F and rapid response was called. Upon arrival of the team, patient was noted to be shivering. Patient reports feeling cold but denies any pain or shortness of breath. VS: BP 100/61 HR 158 RR 20 O2sat 99% on room air General: awake alert, shivering Lungs: clear to auscultation bilaterally Heart: Tachycardic, normal S1, S2 Ext: +2 pulses, no edema OB concrete float maker arrived and pelvic exam done. No retained products noted, minimal bleeding, uterus well contracted. Sepsis, unclear etiology Will order CXR, UA/Urine culture, flu swab lactic acid IV fluids Transabdominal/pelvic ultrasound Aztreonam and Vancomycin started ID consulted.
[2018-07-22 15:43] LABS: EPI CELLS 3.3 /HPF (0-5/HPF); URINE APPEARANCE CLEAR; URINE BACTERIA 59.7 /hpf (NEGATIVE); URINE BILIRUBIN NEGATIVE (NEGATIVE); URINE CASTS 1 /lpf (0-8); URINE COLOR YELLOW; URINE GLUCOSE (UA) NEGATIVE (NEGATIVE); URINE KETONE NEGATIVE (NEGATIVE); URINE LEUK ESTERASE 1+ (NEGATIVE); URINE NITRITE NEGATIVE (NEGATIVE); URINE PROTEIN NEGATIVE (NEGATIVE); URINE RBC 1 /hpf (0-4); URINE UROBILINOGEN 0.2 mg/dL (0.2-1.0); URINE WBC 11 /hpf (0-5)
--- NOTE | 2018-07-22 16:01 | CONSULT ---
Consultation: REQUESTING PROVIDER:Dr. Burnett CONSULT REQUEST: We have been asked to medically evaluate this patient for sepsis. HISTORY OF PRESENT ILLNESS: Patient is a 27 year old female, ([id number]), was admitted yesterday for spontaneous vaginal delivery, presented today with fever and tachycardia. Patient had a vaginal delivery yesterday without complications. Today, patient was noted to have fever of 102F. ID was consulted and sepsis work-up was initiated. A repeat rectal temp revealed 105F with patient having chills and tachycardia at 150s, and rapid response was called. Patient was given Tylenol, IVF boluses and put on cooling blankets. OB quality control checker was present, pelvic exam showed minimal vaginal bleeding, with no retained products of conception noted and uterus well contracted. About an hour later, patient was lying comfortably in bed, reports feeling better, and denies headache, dizziness, chest pain, shortness of breath, nausea, vomiting, abdominal pain, diarrhea, urinary symptoms, vaginal bleeding. REVIEW OF SYSTEMS: CONSTITUTIONAL: fever, chills Absent: diaphoresis, generalized weakness, malaise, loss of appetite, weight change HEENT: Absent: rhinorrhea, nasal congestion, throat pain, throat swelling, difficulty swallowing, mouth swelling, ear pain, eye pain, visual changes CARDIOVASCULAR: Absent: chest pain, syncope, palpitations, irregular heart rate, lightheadedness , peripheral edema RESPIRATORY: Absent: cough, shortness of breath, dyspnea with exertion, orthopnea, wheezing, stridor, hemoptysis GASTROINTESTINAL: Absent: abdominal pain, abdominal distension, nausea, vomiting, diarrhea, constipation, melena, hematochezia GENITOURINARY: Absent: dysuria, frequency, urgency, hesitancy, hematuria, flank pain, genital pain MUSCULOSKELETAL: Absent: myalgia, arthralgia, joint swelling, back pain, neck pain SKIN: Absent: rash, itching, pallor HEMATOLOGIC/IMMUNOLOGIC: Absent: easy bleeding, easy bruising, lymphadenopathy, frequent infections ENDOCRINE: Absent: unexplained weight gain, unexplained weight loss, heat intolerance, cold intolerance NEUROLOGIC: Absent: headache, focal weakness or paresthesias, dizziness, unsteady gait, seizure, mental status changes, bladder or bowel incontinence PSYCHIATRIC: Absent: anxiety, depression, suicidal or homicidal ideation, hallucinations. PHYSICAL EXAMINATION Vital Signs - 24 hr 07/21/18 07/21/18 07/21/18 18:00 20:45 23:49 Temperature 98.5 F 98.6 F 98.8 F Pulse Rate 84 90 114 H Respiratory 20 20 20 Rate Blood Pressure 98/63 100/58 L 100/64 07/22/18 07/22/18 07/22/18 05:36 09:21 13:35 Temperature 98.0 F 97.7 F 102.3 F H Pulse Rate 110 H 100 H Respiratory 20 18 Rate Blood Pressure 100/47 L 84/55 L 07/22/18 07/22/18 07/22/18 14:30 15:15 15:30 Temperature 105.3 F H 105.3 F H 104.7 F H Pulse Rate Respiratory Rate Blood Pressure GENERAL: Awake, alert, and fully oriented, in no acute distress. HEAD: Normal with no signs of trauma. EYES: PERRLA, EOMI, sclera anicteric, conjunctiva clear. EARS, NOSE, THROAT: oropharynx clear without exudates. Dry mucous membranes. NECK: Normal range of motion, supple without lymphadenopathy, JVD, or masses. LUNGS: Breath sounds equal, clear to auscultation bilaterally. HEART: Tachycardia, normal S1 and S2 without murmur, rub or gallop. ABDOMEN: Soft, +suprapubic tenderness, not distended, normoactive bowel sounds, no guarding. MUSCULOSKELETAL: Normal range of motion at all joints. No bony deformities or tenderness. UPPER EXTREMITIES: 2+ pulses, warm, well-perfused. No peripheral edema. LOWER EXTREMITIES: 2+ pulses, warm, well-perfused. No peripheral edema. NEUROLOGICAL: Cranial nerves II-XII intact. Normal speech. Gait not observed. PSYCHIATRIC: Cooperative. Good eye contact. Appropriate mood and affect. SKIN: Warm, dry, normal turgor, no rashes or lesions noted. Laboratory Results - last 24 hr 07/21/18 07/22/18 07/22/18 12:20 07:30 13:53 WBC 7.2 7.0 RBC 3.40 L 3.50 L Hgb 10.8 10.9 Hct 30.8 L D 32.0 L MCV 90.5 91.6 MCH 31.6 31.1 MCHC 34.9 34.0 RDW 13.7 14.1 Plt Count 141 D 140 MPV 8.3 7.8 Absolute Neuts (auto) 6.7 6.8 Neutrophils % 92.8 H 96.4 H Neutrophils % (Manual) 63.4 63.0 Band Neutrophils % 29.8 27.0 Lymphocytes % 4.8 L D 2.1 L D Lymphocytes % (Manual) 3.0 L 4.0 L D Monocytes % 2.3 L 1.5 L Monocytes % (Manual) 4 0 L D Eosinophils % 0.1 0.0 D Eosinophils % (Manual) 0.0 0.0 Basophils % 0.0 0.0 Basophils % (Manual) 0.0 0.0 Myelocytes % (Man) 0 1 D Promyelocytes % (Man) 0 0 Blast Cells % (Manual) 0 0 Nucleated RBC % 0 0 Metamyelocytes 0 5 H D Hypochromia 0 Platelet Estimate Decreased Decreased Polychromasia 0 0 Poikilocytosis 2+ 0 Anisocytosis 0 Microcytosis 0 Macrocytosis 0 PT with INR INR PTT (Actin FS) Sodium Potassium Chloride Carbon Dioxide Anion Gap BUN Creatinine Creat Clearance w eGFR Random Glucose Lactic Acid Calcium Total Bilirubin AST ALT Alkaline Phosphatase Total Protein Albumin RPR Titer Nonreactive 07/22/18 07/22/18 07/22/18 13:53 13:53 13:53 WBC RBC Hgb Hct MCV MCH MCHC RDW Plt Count MPV Absolute Neuts (auto) Neutrophils % Neutrophils % (Manual) Band Neutrophils % Lymphocytes % Lymphocytes % (Manual) Monocytes % Monocytes % (Manual) Eosinophils % Eosinophils % (Manual) Basophils % Basophils % (Manual) Myelocytes % (Man) Promyelocytes % (Man) Blast Cells % (Manual) Nucleated RBC % Metamyelocytes Hypochromia Platelet Estimate Polychromasia Poikilocytosis Anisocytosis Microcytosis Macrocytosis PT with INR 11.40 INR 0.97 PTT (Actin FS) 29.1 Sodium 136 Potassium 3.3 L Chloride 107 Carbon Dioxide 21 Anion Gap 8 BUN 7 Creatinine 0.5 L Creat Clearance w eGFR 148.00 Random Glucose 100 Lactic Acid 2.2 H* Calcium 7.9 L Total Bilirubin 1.0 AST 24 ALT 18 Alkaline Phosphatase 190 H Total Protein 5.0 L Albumin 2.0 L RPR Titer Active Medications Generic Name Dose Route Start Last Admin Trade Name Freq PRN Reason Stop Dose Admin Acetaminophen 650 mg 07/21/18 11:45 07/22/18 14:27 Tylenol - PO 650 mg Q3H PRN Administration PAIN Benzocaine 1 spray 07/21/18 11:45 Americaine 20% [place] - TP PRN PRN PAIN Benzocaine 1 applic 07/21/18 11:45 Americaine Ointment - TP PRN PRN PAIN Bisacodyl 10 mg 07/21/18 11:45 Dulcolax Suppository - RC PRN PRN CONSTIPATION Oxytocin/Sodium Chloride 20 unit in 1,000 mls @ 125 mls/hr 07/21/18 11:45 04/10 11:23 Normal Saline+20 Units Oxytocin - IV 125 mls/hr ASDIR YONAS Administration Aztreonam 2 gm/ Dextrose 100 mls @ 100 mls/hr 07/22/18 15:15 IVPB 07/22/18 16:14 ONCE ONE Protocol Vancomycin HCl 1,000 mg/ 250 mls @ 166.667 mls/hr 07/22/18 15:17 Dextrose IVPB 07/22/18 16:46 ONCE ONE Protocol Sodium Chloride 1,000 mls @ 1,000 mls/hr 07/22/18 15:19 Normal Saline - IV 07/22/18 16:18 ASDIR STA Sodium Chloride 1,000 mls @ 125 mls/hr 07/22/18 16:19 Normal Saline - IV ASDIR YONAS Ibuprofen 600 mg 07/21/18 11:45 07/22/18 14:27 Motrin - PO 600 mg Q4H PRN Administration PAIN Methylergonovine Maleate 0.2 mg 07/21/18 11:45 Methergine Injection - IM Q4H PRN EXCESSIVE BLEEDING (L&D) Senna/Docusate Sodium 2 tablet 07/22/18 22:00 Pericolace - PO HS PRN CONSTIPATION Witch Aline/Glycerin 1 pad 07/21/18 11:45 Tucks Pads - TP PRN PRN PAIN ASSESSMENT/PLAN: Patient is a 27 year old female, ([id number]), was admitted yesterday for spontaneous vaginal delivery, presented today with fever and tachycardia. #Sepsis, unclear etiology -may be endometritis vs UTI -Lactic acid 2.5, temp 104, tachycardia at 130s, no leukocytosis -Aggressive IV hydration -CXR - no acute pathology -pelvic ultrasound ordered -will trend lactic acid -UA and urine culture pending -Blood cultures pending -Flu swab -ID (Dr. Escobar) consulted. Recommendations appreciated. -Aztreonam 2gm q8, Clindamycin 600mg q8, Vancomycin 1000mg q12 #FEN -IV NS @150cc/hr -Hypokalemia, will replete -routine bmp monitoring -Regular diet #Prophylaxis -early ambulation #Disposition -full code Dispo: We will continue to follow the patient. Thank you for this consultative opportunity. Visit type - Emergency Visit Emergency Visit: No - New Patient This patient is new to me today: Yes Date on this admission: 07/22/18 - Critical Care Critical Care patient: No
[2018-07-22 16:12] LABS: ARTERIAL BLOOD GAS BASE EXCESS -7.1 meq/l (-2-2); ARTERIAL BLOOD GAS PCO2 21.7 mmHg (35-45); ARTERIAL BLOOD GAS PO2 119 mmHg (80-105); ARTERIAL BLOOD GAS pH 7.46 (7.35-7.45)
[2018-07-22] MEDS ORDERED: VANCOMYCIN 1,000 MG in DEXTROSE 5%-WATER - 250 ML IVPB SCH (16:15)
[2018-07-22] MEDS ORDERED: SODIUM CHLORIDE 1,000 ML IV SCH ×2 (16:19→16:50)
--- NOTE | 2018-07-22 16:19 | PN ---
Progress Note (short form) - Note Progress Note: ID CONSULT DICTATED HIGH GRADE FEVER/ CHILLS IN 27 Y/O DAY 1 ? SOURCE ? ENDOMETRITIS PCN ALLERGY AWAIT C/S EMPIRIC VANCOMYCIN/ AZTREONAM / CLINDAMYCIN
[2018-07-22 16:43] LABS: ALLENS TEST POSITIVE
--- NOTE | 2018-07-22 16:58 | CONS ---
DATE OF CONSULTATION: 07/22/2018 INFECTIOUS DISEASE CONSULTATION The patient is a 27-year-old female who was admitted to the hospital on July 21, 2018, at 40 weeks' intrauterine , term, in labor. The patient had a normal spontaneous vaginal delivery . Her course was complicated by vaginal bleeding. Today she developed onset of high-grade fever and chills. She was noted to be tachycardic and hypotensive. She was aggressively resuscitated with fluids. She was seen in followup by MEASUREMENT SPECIALIST, felt not to have retained products of conception. At the present time, she is awake and alert. She denies any focal complaint. Her only complaint was fever and chills. She denies any abdominal pain. No complaints of chest pain, shortness of breath, cough, or sputum production. No dysuria or hematuria. No catheter-related phlebitis or calf tenderness. PAST MEDICAL HISTORY: Positive for asthma and pneumonia. PAST SURGICAL HISTORY: Status post appendectomy. ALLERGIES: PENICILLIN-PATIENT DEVELOPED HIVES MANY YEARS AGO. LABORATORY DATA: White count 7.0, hematocrit 32.0, platelet count 140. BUN 7, creatinine 0.2. Lactic acid 2.2. Alkaline phosphatase 190. INR 0.97. Urinalysis is pending. CHEST X-RAY: No acute infiltrate. Official reading is pending. PHYSICAL EXAMINATION: General: She is awake and alert, in no acute distress. Vital Signs: T-max 105.3, blood pressure 84/65, pulse 100 regular, respirations 18 per minute. Eyes: Sclerae anicteric. Heart: Sounds tachycardic, S1, S2. Lungs: Diminished breath sounds at the bases bilaterally. Abdomen: Soft. No tenderness elicited. Extremities: Negative for edema. Negative Pal sign. IMPRESSION: High-grade fever, hypotension, tachycardia, chills in this 27-year-old female day number normal spontaneous vaginal delivery. Source of fever not clear, possible endometritis. RECOMMENDATIONS: We will await sepsis workup. Empiric antibiotic coverage for endometritis with vancomycin, Azactam, and clindamycin in this PENICILLIN-ALLERGIC patient. Continue IV fluid hydration. Medical consult. Will follow. Thank you for the kind referral. JOSE RAYMOND M.D. [id number]
[2018-07-22] MEDS ORDERED: POTASSIUM CHLORIDE TABS 20 MEQ TABLET.ER (FP) PO ONE (17:35)
--- NOTE | 2018-07-22 20:14 | PN ---
Post Progress Note - Subjective Subjective: 27 yo Para 2 status post vaginal delivery, seen and evaluated. She denies any dizziness nor fatigue. Post Day: 1 Type of Delivery: Vital Signs: Vital Signs Temperature 98.4 F 07/22/18 19:00 Pulse Rate 90 07/22/18 19:00 Respiratory Rate 18 07/22/18 19:00 Blood Pressure 76/45 L 07/22/18 19:00 O2 Sat by Pulse Oximetry (%) Breast Exam: Yes: Soft Uterus: Yes: Fundus Firm Abdomen/GI: Yes: Abdomen soft, Tolerating PO Lochia: Yes: Rubra Lochia, amount: Heavy Perineum: Yes: Intact Activity: Ambulating - Labs Labs: CBC WBC 7.0 K/mm3 (4.0-10.0) 07/22/18 13:53 RBC 3.50 M/mm3 (3.60-5.2) L 07/22/18 13:53 Hgb 10.9 GM/dL (10.7-15.3) 07/22/18 13:53 Hct 32.0 % (32.4-45.2) L 07/22/18 13:53 MCV 91.6 fl (80-96) 07/22/18 13:53 MCH 31.1 pg (25.7-33.7) 07/22/18 13:53 MCHC 34.0 g/dl (32.0-36.0) 07/22/18 13:53 RDW 14.1 % (11.6-15.6) 07/22/18 13:53 Plt Count 140 K/MM3 (134-434) 07/22/18 13:53 MPV 7.8 fl (7.5-11.1) 07/22/18 13:53 Absolute Neuts (auto) 6.8 K/mm3 (1.5-8.0) 07/22/18 13:53 Neutrophils % 96.4 % (42.8-82.8) H 07/22/18 13:53 Neutrophils % (Manual) 63.0 % (42.8-82.8) 07/22/18 13:53 Band Neutrophils % 27.0 % 07/22/18 13:53 Lymphocytes % 2.1 % (8-40) L D 07/22/18 13:53 Lymphocytes % (Manual) 4.0 % (8-40) L D 07/22/18 13:53 Monocytes % 1.5 % (3.8-10.2) L 07/22/18 13:53 Monocytes % (Manual) 0 % (3.8-10.2) L D 07/22/18 13:53 Eosinophils % 0.0 % (0-4.5) D 07/22/18 13:53 Eosinophils % (Manual) 0.0 % (0-4.5) 07/22/18 13:53 Basophils % 0.0 % (0-2.0) 07/22/18 13:53 Basophils % (Manual) 0.0 % (0-2.0) 07/22/18 13:53 Myelocytes % (Man) 1 % (0-2) D 07/22/18 13:53 Promyelocytes % (Man) 0 % (0-2) 07/22/18 13:53 Blast Cells % (Manual) 0 % (0-0) 07/22/18 13:53 Nucleated RBC % 0 % (0-0) 07/22/18 13:53 Metamyelocytes 5 % (0-2) H D 07/22/18 13:53 Hypochromia 0 07/22/18 13:53 Platelet Estimate Decreased 07/22/18 13:53 Polychromasia 0 07/22/18 13:53 Poikilocytosis 0 07/22/18 13:53 Anisocytosis 0 07/22/18 13:53 Microcytosis 0 07/22/18 13:53 Macrocytosis 0 07/22/18 13:53 Assessment/Plan Status post vaginal delivery Anemia Continue care
--- NOTE | 2018-07-22 20:30 | PN ---
Teaching Attending Note Name of Resident: Alyse Caraballo ATTENDING PHYSICIAN STATEMENT I saw and evaluated the patient. I reviewed the resident's note and discussed the case with the resident. I agree with the resident's findings and plan as documented. SUBJECTIVE: seen and examined, patient was a rapid response earlier for hypotension and a fever of 105. patient has improved, temp coming down, BP slightly better. Patient feels great, denies cp, palpitations, n/v/d, sob. OBJECTIVE: Vital Signs Period Temp Pulse Resp BP Sys/Oseguera Pulse Ox Last 24 Hr 97.7 F-105.3 F 90-114 18-20 70-100/42-64 Current Medications Generic Name Dose Route Start Last Admin Trade Name Freq PRN Reason Stop Dose Admin Acetaminophen 650 mg 07/21/18 11:45 07/22/18 17:18 Tylenol - PO 650 mg Q3H PRN Administration PAIN Benzocaine 1 spray 07/21/18 11:45 Americaine 20% [place] - TP PRN PRN PAIN Benzocaine 1 applic 07/21/18 11:45 Americaine Ointment - TP PRN PRN PAIN Bisacodyl 10 mg 07/21/18 11:45 Dulcolax Suppository - RC PRN PRN CONSTIPATION Oxytocin/Sodium Chloride 20 unit in 1,000 mls @ 125 mls/hr 07/21/18 11:45 04/10 11:23 Normal Saline+20 Units Oxytocin - IV 125 mls/hr ASDIR YONAS Administration Vancomycin HCl 1,000 mg/ 250 mls @ 166.667 mls/hr 07/22/18 16:15 07/22/18 17: 13 Dextrose IVPB 166.667 mls/hr Q12H YONAS Administration Protocol Aztreonam 2 gm/ Dextrose 100 mls @ 100 mls/hr 07/22/18 18:00 07/22/18 20:32 IVPB 100 mls/hr Q8H-IV YONAS Administration Protocol Clindamycin Phosphate 600 mg in 50 mls @ 100 mls/hr 07/22/18 18:00 Cleocin 600 Mg Premix Ivpb - IVPB Q8H-IV YONAS Protocol Sodium Chloride 1,000 mls @ 150 mls/hr 07/22/18 16:50 Normal Saline - IV ASDIR YONAS Ibuprofen 600 mg 07/21/18 11:45 07/22/18 17:18 Motrin - PO 600 mg Q4H PRN Administration PAIN Methylergonovine Maleate 0.2 mg 07/21/18 11:45 Methergine Injection - IM Q4H PRN EXCESSIVE BLEEDING (L&D) Senna/Docusate Sodium 2 tablet 07/22/18 22:00 Pericolace - PO HS PRN CONSTIPATION Witch Aline/Glycerin 1 pad 07/21/18 11:45 Tucks Pads - TP PRN PRN PAIN Laboratory Last Values WBC 7.0 K/mm3 (4.0-10.0) 07/22/18 13:53 RBC 3.50 M/mm3 (3.60-5.2) L 07/22/18 13:53 Hgb 10.9 GM/dL (10.7-15.3) 07/22/18 13:53 Hct 32.0 % (32.4-45.2) L 07/22/18 13:53 MCV 91.6 fl (80-96) 07/22/18 13:53 MCH 31.1 pg (25.7-33.7) 07/22/18 13:53 MCHC 34.0 g/dl (32.0-36.0) 07/22/18 13:53 RDW 14.1 % (11.6-15.6) 07/22/18 13:53 Plt Count 140 K/MM3 (134-434) 07/22/18 13:53 MPV 7.8 fl (7.5-11.1) 07/22/18 13:53 Absolute Neuts (auto) 6.8 K/mm3 (1.5-8.0) 07/22/18 13:53 Neutrophils % 96.4 % (42.8-82.8) H 07/22/18 13:53 Neutrophils % (Manual) 63.0 % (42.8-82.8) 07/22/18 13:53 Band Neutrophils % 27.0 % 07/22/18 13:53 Lymphocytes % 2.1 % (8-40) L D 07/22/18 13:53 Lymphocytes % (Manual) 4.0 % (8-40) L D 07/22/18 13:53 Monocytes % 1.5 % (3.8-10.2) L 07/22/18 13:53 Monocytes % (Manual) 0 % (3.8-10.2) L D 07/22/18 13:53 Eosinophils % 0.0 % (0-4.5) D 07/22/18 13:53 Eosinophils % (Manual) 0.0 % (0-4.5) 07/22/18 13:53 Basophils % 0.0 % (0-2.0) 07/22/18 13:53 Basophils % (Manual) 0.0 % (0-2.0) 07/22/18 13:53 Myelocytes % (Man) 1 % (0-2) D 07/22/18 13:53 Promyelocytes % (Man) 0 % (0-2) 07/22/18 13:53 Blast Cells % (Manual) 0 % (0-0) 07/22/18 13:53 Nucleated RBC % 0 % (0-0) 07/22/18 13:53 Metamyelocytes 5 % (0-2) H D 07/22/18 13:53 Hypochromia 0 07/22/18 13:53 Platelet Estimate Decreased 07/22/18 13:53 Polychromasia 0 07/22/18 13:53 Poikilocytosis 0 07/22/18 13:53 Anisocytosis 0 07/22/18 13:53 Microcytosis 0 07/22/18 13:53 Macrocytosis 0 07/22/18 13:53 PT with INR 11.40 SEC (9.7-13.0) 07/22/18 13:53 INR 0.97 (0.83-1.09) 07/22/18 13:53 PTT (Actin FS) 29.1 SECONDS (25.2-36.5) 07/22/18 13:53 Anticoagulation Therapy No Result Required. 07/22/18 15:55 Puncture Site Left radial 07/22/18 15:55 ABG pH 7.46 (7.35-7.45) H 07/22/18 15:55 ABG pCO2 at Pt Temp 21.7 mmHg (35-45) L 07/22/18 15:55 ABG pO2 at Pt Temp 119 mmHg (80-105) H 07/22/18 15:55 ABG HCO3 15.3 mmol/L (22-27) L 07/22/18 15:55 ABG O2 Sat (Measured) 99.0 % (95-98) H 07/22/18 15:55 ABG O2 Content 12.1 % vol (15-22) L 07/22/18 15:55 ABG Base Excess -7.1 meq/l (-2-2) L 07/22/18 15:55 Ismael Test Positive 07/22/18 15:55 VBG pH 7.54 (7.31-7.41) H 07/21/18 11:21 POC VBG pCO2 21.7 mmHg (41-51) L 07/21/18 11:21 POC VBG pO2 30.3 mmHg (30-40) 07/21/18 11:21 VBG HCO3 18.8 mmol/L (23-29) L 07/21/18 11:21 VBG O2 Sat (Colin) 75.6 % (70-80) 07/21/18 11:21 VBG Base Excess -1.6 meq/l (-2-2) 07/21/18 11:21 O2 Delivery Device No Result Required. 07/22/18 15:55 Oxygen Flow Rate No Result Required. 07/22/18 15:55 Vent Mode No Result Required. 07/22/18 15:55 Vent Rate No Result Required. 07/22/18 15:55 Mechanical Rate No Result Required. 07/22/18 15:55 Pressure Support Vent No Result Required. 07/22/18 15:55 Sodium 136 mmol/L (136-145) 07/22/18 13:53 Potassium 3.3 mmol/L (3.5-5.1) L 07/22/18 13:53 Chloride 107 mmol/L (98-107) 07/22/18 13:53 Carbon Dioxide 21 mmol/L (21-32) 07/22/18 13:53 Anion Gap 8 MMOL/L (8-16) 07/22/18 13:53 BUN 7 mg/dL (7-18) 07/22/18 13:53 Creatinine 0.5 mg/dL (0.55-1.3) L 07/22/18 13:53 Creat Clearance w eGFR 148.00 (>60) 07/22/18 13:53 Random Glucose 100 mg/dL (74-106) 07/22/18 13:53 Lactic Acid 2.2 mmol/L (0.4-2.0) H* 07/22/18 19:00 Calcium 7.9 mg/dL (8.5-10.1) L 07/22/18 13:53 Total Bilirubin 1.0 mg/dL (0.2-1) 07/22/18 13:53 AST 24 U/L (15-37) 07/22/18 13:53 ALT 18 U/L (13-61) 07/22/18 13:53 Alkaline Phosphatase 190 U/L (45-117) H 07/22/18 13:53 Creatine Kinase 72 U/L (26-192) 07/22/18 19:00 Total Protein 5.0 g/dl (6.4-8.2) L 07/22/18 13:53 Albumin 2.0 g/dl (3.4-5.0) L 07/22/18 13:53 Urine Color Yellow 07/22/18 14:35 Urine Appearance Clear 07/22/18 14:35 Urine pH 6.0 (5.0-8.0) D 07/22/18 14:35 Ur Specific [place] 1.005 (1.010-1.035) L 07/22/18 14:35 Urine Protein Negative (NEGATIVE) 07/22/18 14:35 Urine Glucose (UA) Negative (NEGATIVE) 07/22/18 14:35 Urine Ketones Negative (NEGATIVE) 07/22/18 14:35 Urine Blood 3+ (NEGATIVE) H 07/22/18 14:35 Urine Nitrite Negative (NEGATIVE) 07/22/18 14:35 Urine Bilirubin Negative (NEGATIVE) 07/22/18 14:35 Urine Urobilinogen 0.2 mg/dL (0.2-1.0) 07/22/18 14:35 Ur Leukocyte Esterase 1+ (NEGATIVE) H 07/22/18 14:35 Urine WBC (Auto) 11 /hpf (0-5) 07/22/18 14:35 Urine RBC (Auto) 1 /hpf (0-4) 07/22/18 14:35 Urine Casts (Auto) 1 /lpf (0-8) 07/22/18 14:35 U Pathogenic Cast Auto No Result Required. 07/22/18 14:35 U Epithel Cells (Auto) 3.3 /HPF (0-5/HPF) 07/22/18 14:35 U Sm Round Cell (Auto) No Result Required. 07/22/18 14:35 Urine Crystals (Auto) No Result Required. 07/22/18 14:35 Urine Bacteria (Auto) 59.7 /hpf (NEGATIVE) 07/22/18 14:35 RPR Titer Nonreactive (NONREACTIVE) 07/21/18 12:20 Blood Type O POSITIVE 07/21/18 12:20 Antibody Screen Negative 07/21/18 12:20 ALL IMAGING REPORTS REVIEWED, EKG PENDING PHYSICAL EXAM: GENERAL: VERY PLEASANT, IN NAD, nontoxic appearing CVS: S1S2, RRR, NO MRG LUNGS: cta BL, NO W/R/R, UNLABORED ABDOMEN: SOFT, SLIGHTLY DISTENDED, NABS, NONTENDER EXTREMITIES: 2+dpp, NO EDEMA ASSESSMENT AND PLAN: 27 year old female, ([id number]) spontaneous vaginal delivery yesterday, rapid response called today for fevers, tachycardia, and hypotension 1) Sepsis -pancultured -continue with aggressive IVF, has received 2.5 L so far with minimal improvement in BP -chest xray unremarkable -followup pelvic us -ekg pending -follow repeat lactic acid -temperature and HR coming down -antipyretics, cooling blanket -broad spectrum abx-vanco/aztreonam/clinda -monitor closely and if no improvement in BP may need to be transferred to ICU for further management -seen by ob, no POC visualized -night team will follow closely, may need further imaging
[2018-07-22] MEDS: AZTREONAM 2 GM in DEXTROSE 5%-WATER 100 ML IVPB SCH (20:32)
[2018-07-22] MEDS ORDERED: ONDANSETRON 4 MG/2 ML VIAL IVPUSH PRN (21:36)
[2018-07-22] MEDS: CLINDAMYCIN 600MG PREMIX IVPB 600 MG/50 ML BAG IVPB SCH (21:43)
[2018-07-22] MEDS ORDERED: SENNOSIDES/DOCUSATE COMBO (SENNA PLUS) TABLET (UD) PO PRN (22:00)
--- NOTE | 2018-07-22 22:51 | CONSULT ---
Consultation: REQUESTING PROVIDER: Dr Aquilino Morgan CONSULT REQUEST: We have been asked to medically evaluate this patient for sepsis. HISTORY OF PRESENT ILLNESS: This is a 27 year old female with a history of asthma and treated MRSA, post day 1; RAPID response called today due to fever of 105 F; hypotensive; systolic bp in the 70s. She was given IVF, antibiotics (ID consulted), cooling blanket by rapid response team. WBC 7; Lactic acid 2.5 at that time. Bladder US negative. Pressure slightly increased after fluid resuscitation although has remained hypotensive throughout the day. As per PROSPECTING DRILLER patient was not given prophylactic antibiotics prior to delivering due to rapid delivery. Patient admitted to ICU for severe sepsis; PMH: asthma on prn albuterol, hx MRSA (years ago) PSH: appendectomy Social ; denies smoking; drinking /rec drugs; lives with (EMS here), has two other healthy children REVIEW OF SYSTEMS: CONSTITUTIONAL: Positive: fever, Absent: chills, diaphoresis, generalized weakness, malaise, loss of appetite, weight change HEENT: Absent: rhinorrhea, nasal congestion, throat pain, throat swelling, difficulty swallowing, mouth swelling, ear pain, eye pain, visual changes CARDIOVASCULAR: Absent: chest pain, syncope, palpitations, irregular heart rate, lightheadedness , peripheral edema RESPIRATORY: Absent: cough, shortness of breath, dyspnea with exertion, orthopnea, wheezing, stridor, hemoptysis GASTROINTESTINAL: Absent: abdominal pain, abdominal distension, nausea, vomiting, diarrhea, constipation, melena, hematochezia GENITOURINARY: Absent: dysuria, frequency, urgency, hesitancy, hematuria, flank pain, genital pain MUSCULOSKELETAL: Absent: myalgia, arthralgia, joint swelling, back pain, neck pain SKIN: Absent: rash, itching, pallor HEMATOLOGIC/IMMUNOLOGIC: Absent: easy bleeding, easy bruising, lymphadenopathy, frequent infections ENDOCRINE: Absent: unexplained weight gain, unexplained weight loss, heat intolerance, cold intolerance NEUROLOGIC: Absent: headache, focal weakness or paresthesias, dizziness, unsteady gait, seizure, mental status changes, bladder or bowel incontinence PSYCHIATRIC: Absent: anxiety, depression, suicidal or homicidal ideation, hallucinations. PHYSICAL EXAMINATION Vital Signs - 24 hr 07/21/18 07/22/18 07/22/18 23:49 05:36 09:21 Temperature 98.8 F 98.0 F 97.7 F Pulse Rate 114 H 110 H 100 H Respiratory 20 20 18 Rate Blood Pressure 100/64 100/47 L 84/55 L 07/22/18 07/22/18 07/22/18 13:35 14:30 15:15 Temperature 102.3 F H 105.3 F H 105.3 F H Pulse Rate Respiratory Rate Blood Pressure 07/22/18 07/22/18 07/22/18 15:30 16:00 17:00 Temperature 104.7 F H 104 F H 101.6 F H Pulse Rate 100 H Respiratory 20 Rate Blood Pressure 73/50 L 07/22/18 07/22/18 07/22/18 18:00 19:00 20:37 Temperature 100.0 F H 98.4 F 98.8 F Pulse Rate 94 H 90 90 Respiratory 20 18 18 Rate Blood Pressure 70/42 L 76/45 L 72/45 L 07/22/18 07/22/18 21:35 21:54 Temperature 97.3 F L 97.7 F Pulse Rate 91 H 92 H Respiratory 18 18 Rate Blood Pressure 87/46 L 78/50 L GENERAL: Awake, alert, and fully oriented HEAD: Normal with no signs of trauma. EYES: Pupils equal, round and reactive to light, extraocular movements intact, sclera anicteric, conjunctiva clear. No lid lag. EARS, NOSE, THROAT: Ears normal, nares patent, oropharynx clear without exudates. Moist mucous membranes. NECK: Normal range of motion, supple without lymphadenopathy, JVD, or masses. LUNGS: decreased breath sounds at bilateral bases; no crackles or wheeze HEART: tachy and reg rhythm, normal S1 and S2 without murmur, rub or gallop. ABDOMEN: Soft, slightly tender uterus, normoactive bowel sounds, no guarding, no rebound, no masses. No hepatomegaly or splenomegaly. MUSCULOSKELETAL: Normal range of motion at all joints. No bony deformities or tenderness. No CVA tenderness. UPPER EXTREMITIES: 2+ pulses, warm, well-perfused. No cyanosis. No clubbing. Cap refill <2 seconds. No peripheral edema. LOWER EXTREMITIES: 2+ pulses, warm, well-perfused. No calf tenderness. No peripheral edema. NEUROLOGICAL: Cranial nerves II-XII intact. Normal speech. PSYCHIATRIC: Cooperative. Good eye contact. Appropriate mood and affect. SKIN: Warm, dry, normal turgor, no rashes or lesions noted. Laboratory Results - last 24 hr 07/21/18 07/22/18 07/22/18 12:20 07:30 13:53 WBC 7.2 7.0 RBC 3.40 L 3.50 L Hgb 10.8 10.9 Hct 30.8 L D 32.0 L MCV 90.5 91.6 MCH 31.6 31.1 MCHC 34.9 34.0 RDW 13.7 14.1 Plt Count 141 D 140 MPV 8.3 7.8 Absolute Neuts (auto) 6.7 6.8 Neutrophils % 92.8 H 96.4 H Neutrophils % (Manual) 63.4 63.0 Band Neutrophils % 29.8 27.0 Lymphocytes % 4.8 L D 2.1 L D Lymphocytes % (Manual) 3.0 L 4.0 L D Monocytes % 2.3 L 1.5 L Monocytes % (Manual) 4 0 L D Eosinophils % 0.1 0.0 D Eosinophils % (Manual) 0.0 0.0 Basophils % 0.0 0.0 Basophils % (Manual) 0.0 0.0 Myelocytes % (Man) 0 1 D Promyelocytes % (Man) 0 0 Blast Cells % (Manual) 0 0 Nucleated RBC % 0 0 Metamyelocytes 0 5 H D Hypochromia 0 Platelet Estimate Decreased Decreased Polychromasia 0 0 Poikilocytosis 2+ 0 Anisocytosis 0 Microcytosis 0 Macrocytosis 0 PT with INR INR PTT (Actin FS) Anticoagulation Therapy Puncture Site ABG pH ABG pCO2 at Pt Temp ABG pO2 at Pt Temp ABG HCO3 ABG O2 Sat (Measured) ABG O2 Content ABG Base Excess Ismael Test O2 Delivery Device Oxygen Flow Rate Vent Mode Vent Rate Mechanical Rate Pressure Support Vent Sodium Potassium Chloride Carbon Dioxide Anion Gap BUN Creatinine Creat Clearance w eGFR Random Glucose Lactic Acid Calcium Total Bilirubin AST ALT Alkaline Phosphatase Creatine Kinase Total Protein Albumin Urine Color Urine Appearance Urine pH Ur Specific [place] Urine Protein Urine Glucose (UA) Urine Ketones Urine Blood Urine Nitrite Urine Bilirubin Urine Urobilinogen Ur Leukocyte Esterase Urine WBC (Auto) Urine RBC (Auto) Urine Casts (Auto) U Pathogenic Cast Auto U Epithel Cells (Auto) U Sm Round Cell (Auto) Urine Crystals (Auto) Urine Bacteria (Auto) RPR Titer Nonreactive 07/22/18 07/22/18 07/22/18 13:53 13:53 13:53 WBC RBC Hgb Hct MCV MCH MCHC RDW Plt Count MPV Absolute Neuts (auto) Neutrophils % Neutrophils % (Manual) Band Neutrophils % Lymphocytes % Lymphocytes % (Manual) Monocytes % Monocytes % (Manual) Eosinophils % Eosinophils % (Manual) Basophils % Basophils % (Manual) Myelocytes % (Man) Promyelocytes % (Man) Blast Cells % (Manual) Nucleated RBC % Metamyelocytes Hypochromia Platelet Estimate Polychromasia Poikilocytosis Anisocytosis Microcytosis Macrocytosis PT with INR 11.40 INR 0.97 PTT (Actin FS) 29.1 Anticoagulation Therapy Puncture Site ABG pH ABG pCO2 at Pt Temp ABG pO2 at Pt Temp ABG HCO3 ABG O2 Sat (Measured) ABG O2 Content ABG Base Excess Ismael Test O2 Delivery Device Oxygen Flow Rate Vent Mode Vent Rate Mechanical Rate Pressure Support Vent Sodium 136 Potassium 3.3 L Chloride 107 Carbon Dioxide 21 Anion Gap 8 BUN 7 Creatinine 0.5 L Creat Clearance w eGFR 148.00 Random Glucose 100 Lactic Acid 2.2 H* Calcium 7.9 L Total Bilirubin 1.0 AST 24 ALT 18 Alkaline Phosphatase 190 H Creatine Kinase Total Protein 5.0 L Albumin 2.0 L Urine Color Urine Appearance Urine pH Ur Specific [place] Urine Protein Urine Glucose (UA) Urine Ketones Urine Blood Urine Nitrite Urine Bilirubin Urine Urobilinogen Ur Leukocyte Esterase Urine WBC (Auto) Urine RBC (Auto) Urine Casts (Auto) U Pathogenic Cast Auto U Epithel Cells (Auto) U Sm Round Cell (Auto) Urine Crystals (Auto) Urine Bacteria (Auto) RPR Titer 07/22/18 07/22/18 07/22/18 14:35 15:35 15:55 WBC RBC Hgb Hct MCV MCH MCHC RDW Plt Count MPV Absolute Neuts (auto) Neutrophils % Neutrophils % (Manual) Band Neutrophils % Lymphocytes % Lymphocytes % (Manual) Monocytes % Monocytes % (Manual) Eosinophils % Eosinophils % (Manual) Basophils % Basophils % (Manual) Myelocytes % (Man) Promyelocytes % (Man) Blast Cells % (Manual) Nucleated RBC % Metamyelocytes Hypochromia Platelet Estimate Polychromasia Poikilocytosis Anisocytosis Microcytosis Macrocytosis PT with INR INR PTT (Actin FS) Anticoagulation Therapy No Result Required. Puncture Site Left radial ABG pH 7.46 H ABG pCO2 at Pt Temp 21.7 L ABG pO2 at Pt Temp 119 H ABG HCO3 15.3 L ABG O2 Sat (Measured) 99.0 H ABG O2 Content 12.1 L ABG Base Excess -7.1 L Ismael Test Positive O2 Delivery Device No Result Required. Oxygen Flow Rate No Result Required. Vent Mode No Result Required. Vent Rate No Result Required. Mechanical Rate No Result Required. Pressure Support Vent No Result Required. Sodium Potassium Chloride Carbon Dioxide Anion Gap BUN Creatinine Creat Clearance w eGFR Random Glucose Lactic Acid 2.5 H* Calcium Total Bilirubin AST ALT Alkaline Phosphatase Creatine Kinase Total Protein Albumin Urine Color Yellow Urine Appearance Clear Urine pH 6.0 D Ur Specific [place] 1.005 L Urine Protein Negative Urine Glucose (UA) Negative Urine Ketones Negative Urine Blood 3+ H Urine Nitrite Negative Urine Bilirubin Negative Urine Urobilinogen 0.2 Ur Leukocyte Esterase 1+ H Urine WBC (Auto) 11 Urine RBC (Auto) 1 Urine Casts (Auto) 1 U Pathogenic Cast Auto No Result Required. U Epithel Cells (Auto) 3.3 U Sm Round Cell (Auto) No Result Required. Urine Crystals (Auto) No Result Required. Urine Bacteria (Auto) 59.7 RPR Titer 07/22/18 07/22/18 19:00 19:00 WBC RBC Hgb Hct MCV MCH MCHC RDW Plt Count MPV Absolute Neuts (auto) Neutrophils % Neutrophils % (Manual) Band Neutrophils % Lymphocytes % Lymphocytes % (Manual) Monocytes % Monocytes % (Manual) Eosinophils % Eosinophils % (Manual) Basophils % Basophils % (Manual) Myelocytes % (Man) Promyelocytes % (Man) Blast Cells % (Manual) Nucleated RBC % Metamyelocytes Hypochromia Platelet Estimate Polychromasia Poikilocytosis Anisocytosis Microcytosis Macrocytosis PT with INR INR PTT (Actin FS) Anticoagulation Therapy Puncture Site ABG pH ABG pCO2 at Pt Temp ABG pO2 at Pt Temp ABG HCO3 ABG O2 Sat (Measured) ABG O2 Content ABG Base Excess Ismael Test O2 Delivery Device Oxygen Flow Rate Vent Mode Vent Rate Mechanical Rate Pressure Support Vent Sodium Potassium Chloride Carbon Dioxide Anion Gap BUN Creatinine Creat Clearance w eGFR Random Glucose Lactic Acid 2.2 H* Calcium Total Bilirubin AST ALT Alkaline Phosphatase Creatine Kinase 72 Total Protein Albumin Urine Color Urine Appearance Urine pH Ur Specific [place] Urine Protein Urine Glucose (UA) Urine Ketones Urine Blood Urine Nitrite Urine Bilirubin Urine Urobilinogen Ur Leukocyte Esterase Urine WBC (Auto) Urine RBC (Auto) Urine Casts (Auto) U Pathogenic Cast Auto U Epithel Cells (Auto) U Sm Round Cell (Auto) Urine Crystals (Auto) Urine Bacteria (Auto) RPR Titer Active Medications Generic Name Dose Route Start Last Admin Trade Name Freq PRN Reason Stop Dose Admin Acetaminophen 650 mg 07/21/18 11:45 07/22/18 17:18 Tylenol - PO 650 mg Q3H PRN Administration PAIN Benzocaine 1 spray 07/21/18 11:45 Americaine 20% [place] - TP PRN PRN PAIN Benzocaine 1 applic 07/21/18 11:45 Americaine Ointment - TP PRN PRN PAIN Bisacodyl 10 mg 07/21/18 11:45 Dulcolax Suppository - RC PRN PRN CONSTIPATION Chlorhexidine Gluconate 1 applic 07/22/18 22:00 Hibiclens For Decolonization - TP HS YONAS Oxytocin/Sodium Chloride 20 unit in 1,000 mls @ 125 mls/hr 07/21/18 11:45 04/10 11:23 Normal Saline+20 Units Oxytocin - IV 125 mls/hr ASDIR YONAS Administration Vancomycin HCl 1,000 mg/ 250 mls @ 166.667 mls/hr 07/22/18 16:15 07/22/18 17: 13 Dextrose IVPB 166.667 mls/hr Q12H YONAS Administration Protocol Aztreonam 2 gm/ Dextrose 100 mls @ 100 mls/hr 07/22/18 18:00 07/22/18 20:32 IVPB 100 mls/hr Q8H-IV YONAS Administration Protocol Clindamycin Phosphate 600 mg in 50 mls @ 100 mls/hr 07/22/18 18:00 07/22/18 21:43 Cleocin 600 Mg Premix Ivpb - IVPB 100 mls/hr Q8H-IV YONAS Administration Protocol Sodium Chloride 1,000 mls @ 150 mls/hr 07/22/18 16:50 Normal Saline - IV ASDIR YONAS Methylergonovine Maleate 0.2 mg 07/21/18 11:45 Methergine Injection - IM Q4H PRN EXCESSIVE BLEEDING (L&D) Mupirocin 1 applic 07/22/18 22:00 Bactroban Ointment (For Decolonization) - NS 07/27/18 21:59 BID YONAS Senna/Docusate Sodium 2 tablet 07/22/18 22:00 Pericolace - PO HS PRN CONSTIPATION Witch Aline/Glycerin 1 pad 07/21/18 11:45 Tucks Pads - TP PRN PRN PAIN ASSESSMENT/PLAN: This is a 27 year old female with a history of MRSA, Asthma, who is day 1, with high fever with severe sepsis. #severe sepsis with impending septic shock secondary to possible Group B strep vs UTI # day 1 #hx asthma -Patient was adequately fluid resuscitated 30cc/kg although pressers borderline ; -will hold off on pressers for now; monitor BP closely ; will start levophed if MAP does not maintain above 65 -cont IVF -cont IV antibiotics vanc/clindomycin/aztreonam -if continues to spike high fevers can use ibprofen; alternate with Tylenol; ibprofen d/cd for now as she was bleeding a lot as per nurse/ -discussed case PROSPECTING DRILLER; no need for further imaging including vaginal US; as he did not see any contents from vagina -inhaled bronchodilators prn for asthma Dispo: We will continue to follow the patient. Thank you for this consultative opportunity. Visit type - Emergency Visit Emergency Visit: Yes ED Registration Date: 07/21/18 Care time: The patient presented to the Emergency Department on the above date and was hospitalized for further evaluation of their emergent condition. - New Patient This patient is new to me today: Yes Date on this admission: 07/22/18 - Critical Care Critical Care patient: Yes Total Critical Care Time (in minutes): 35 Critical Care Statement: The care of this patient involved high complexity decision making to prevent further life threatening deterioration of the patient 's condition and/or to evaluate & treat vital organ system(s) failure or risk of failure.
[2018-07-22] MEDS: OXYTOCIN 20 UNITS in 0.9% NS 20 UNIT/1,000 ML INFUS.BAG IV SCH (23:47)
[2018-07-22] MEDS: CHLORHEXIDINE GLUCONATE 4% CLEANSER FOR DECOLONIZATION TP SCH (23:48)
[2018-07-22] MEDS: MUPIROCIN 2% TOPICAL OINTMENT FOR DECOLONIZATION NS SCH (23:48)
[2018-07-22] MEDS ORDERED: PT OWN MED DRAWER 7, Y5N ONE (23:56)
[2018-07-22] MEDS ORDERED: INSULIN (NOVOLOG) ASPART 100 UNITS/ML 10ML VIAL ONE (23:57)
[2018-07-23] MEDS ORDERED: MIDAZOLAM HCL 2 MG/2 ML SINGLE DOSE VIAL ONE ×3 (00:32→02:06)
[2018-07-23] MEDS ORDERED: NOREPINEPHRINE BITARTRATE 4 MG/4 ML ML IV ONE (02:28)
[2018-07-23] MEDS ORDERED: NOREPINEPHRINE BITARTRATE 4,000 MCG in DEXTROSE 5%-WATER - 496 ML IV SCH (02:30)
[2018-07-23 03:27] LABS: ARTERIAL BLD GAS O2 SATURATION 86.7 % (95-98); ARTERIAL BLOOD GAS BASE EXCESS -7.1 meq/l (-2-2); ARTERIAL BLOOD GAS PCO2 32.1 mmHg (35-45); ARTERIAL BLOOD GAS PO2 55.4 mmHg (80-105)
[2018-07-23 03:30] LABS: VENOUS PC02 31.7 mmHg (41-51)
[2018-07-23 03:37] LABS: ARTERIAL BLOOD GAS pH 7.35 (7.35-7.45)
[2018-07-23 03:39] LABS: VENOUS PH 7.35 (7.31-7.41)
[2018-07-23] MEDS: CLINDAMYCIN 600MG PREMIX IVPB 600 MG/50 ML BAG IVPB SCH ×3 (04:17→17:43)
[2018-07-23] MEDS: AZTREONAM 2 GM in DEXTROSE 5%-WATER 100 ML IVPB SCH ×2 (04:18→09:32)
[2018-07-23] MEDS: VANCOMYCIN 1 GRAM (PRE-DOCKED) 1,000 MG/250 ML BAG IVPB SCH ×2 (05:50→17:03)
[2018-07-23] MEDS: NOREPINEPHRINE BITARTRATE 8,000 MCG in DEXTROSE 5%-WATER - 492 ML IV SCH (07:00)
[2018-07-23 07:14] LABS: INR 1.14 (0.83-1.09); PROTHROMBIN TIME (PATIENT) 13.5 SEC (9.7-13.0)
[2018-07-23 07:16] LABS: ACTIVATED PTT 30.7 SECONDS (25.2-36.5)
[2018-07-23 07:20] LABS: ANION GAP 7 MMOL/L (8-16); BLOOD UREA NITROGEN 8 mg/dL (7-18); CHLORIDE 119 mmol/L (98-107); CO2 18 mmol/L (21-32); CREATININE 0.4 mg/dL (0.55-1.3); GLUCOSE,RANDOM 103 mg/dL (74-106); MAGNESIUM 1.4 mg/dL (1.8-2.4); PHOSPHOROUS 2.3 mg/dL (2.5-4.9); SODIUM 144 mmol/L (136-145)
[2018-07-23 07:24] LABS: CALCIUM 6.6 mg/dL (8.5-10.1)
[2018-07-23 07:25] LABS: BASO % 0.1 % (0-2.0); EOS % 0.1 % (0-4.5); HEMATOCRIT 28.5 % (32.4-45.2); HEMOGLOBIN 9.7 GM/dL (10.7-15.3); LYMPH % 4.7 % (8-40); MCH 31.5 pg (25.7-33.7); MCHC 34.1 g/dl (32.0-36.0); MEAN CELL VOLUME 92.2 fl (80-96); MONO % 2.2 % (3.8-10.2); NEUT % 92.9 % (42.8-82.8); PLATELET COUNT 166 K/MM3 (134-434); RBC 3.09 M/mm3 (3.60-5.2); RDW 14.3 % (11.6-15.6); WHITE BLOOD COUNT 6.9 K/mm3 (4.0-10.0)
[2018-07-23] MEDS ORDERED: CALCIUM GLUCONATE 10% - 1,000 MG/10 ML VIAL IVPB ONE (07:58)
[2018-07-23] MEDS ORDERED: POTASSIUM PHOSPHATE 20 MM in SODIUM CHLORIDE 250 ML IVPB ONE (07:59)
[2018-07-23] MEDS ORDERED: MAGNESIUM SULF 50% (8.12 MEQ/2 ML-1 GM VIAL) IVPB ONE (08:00)
[2018-07-23] MEDS: MUPIROCIN 2% TOPICAL OINTMENT FOR DECOLONIZATION NS SCH ×2 (09:00→22:45)
[2018-07-23] MEDS ORDERED: PT OWN MED DRAWER 7, Y5N ONE (09:19)
--- NOTE | 2018-07-23 09:40 | PN ---
Progress Note, Physician History of Present Illness: TRANSFERRED TO ICU HYPOTENSIVE ON PRESSORS C/O POST ABDOMINAL DISCOMFORT NO OTHER FOCAL COMPLAINT TEMPS DOWN AFEBRILE [facility] - Current Medication List Current Medications: Active Medications Acetaminophen (Tylenol -) 650 mg PO Q3H PRN PRN Reason: PAIN Last Admin: 07/22/18 17:18 Dose: 650 mg Benzocaine (Americaine 20% [place] -) 1 spray TP PRN PRN PRN Reason: PAIN Benzocaine (Americaine Ointment -) 1 applic TP PRN PRN PRN Reason: PAIN Bisacodyl (Dulcolax Suppository -) 10 mg RC PRN PRN PRN Reason: CONSTIPATION Chlorhexidine Gluconate (Hibiclens For Decolonization -) 1 applic TP HS YONAS Last Admin: 07/22/18 23:48 Dose: 1 applic Aztreonam 2 gm/ Dextrose 100 mls @ 100 mls/hr IVPB Q8H-IV YONAS; Protocol Last Admin: 07/23/18 09:32 Dose: 100 mls/hr Clindamycin Phosphate (Cleocin 600 Mg Premix Ivpb -) 600 mg in 50 mls @ 100 mls /hr IVPB Q8H-IV YONAS; Protocol Last Admin: 07/23/18 04:17 Dose: 100 mls/hr Sodium Chloride (Normal Saline -) 1,000 mls @ 150 mls/hr IV ASDIR YONAS Last Admin: 07/22/18 23:48 Dose: Not Given Vancomycin HCl (Vancomycin (Pre-Docked)) 1,000 mg in 250 mls @ 166.667 mls/hr IVPB Q12H YONAS; Protocol Last Admin: 07/23/18 05:50 Dose: 166.667 mls/hr Norepinephrine Bitartrate 8, (000 mcg/ Dextrose) 500 mls @ 18.75 mls/hr IV TITR YONAS; Protocol Potassium Phosphate 20 mm/ (Sodium Chloride) 256.6667 mls @ 62.5 mls/hr IVPB ONCE ONE Stop: 07/23/18 12:05 Magnesium Sulfate/Dextrose (Magnesium 1gm/D5w -) 1 gm in 100 mls @ 100 mls/hr IVPB Q1H YONAS Stop: 07/23/18 11:59 Mupirocin (Bactroban Ointment (For Decolonization) -) 1 applic NS BID YONAS Stop: 07/27/18 21:59 Last Admin: 07/22/18 23:48 Dose: 1 applic Senna/Docusate Sodium (Pericolace -) 2 tablet PO HS PRN PRN Reason: CONSTIPATION Witch Aline/Glycerin (Tucks Pads -) 1 pad TP PRN PRN PRN Reason: PAIN - Objective Vital Signs: Vital Signs Temperature 98.0 F 07/23/18 07:00 Pulse Rate 72 07/23/18 08:50 Respiratory Rate 20 07/23/18 09:00 Blood Pressure 107/76 07/23/18 08:50 O2 Sat by Pulse Oximetry (%) 100 07/23/18 09:00 Constitutional: Yes: No Distress Eyes: Yes: Conjunctiva Clear Cardiovascular: Yes: Regular Rate and Rhythm, S1, S2 Respiratory: Yes: CTA Bilaterally Gastrointestinal: Yes: Normal Bowel Sounds, Soft. No: Tenderness Extremities: No: Calf Tenderness Edema: No Labs: CBC, BMP 07/23/18 05:30 07/23/18 05:30 INR, PTT INR 1.14 (0.83-1.09) H 07/23/18 05:30 Assessment/Plan STREPTOCOCCAL BACTEREMIA/ SEPSIS SEPTIC SHOCK ? ENDOMETRITIS POST DAY #2 PCN ALLERGY AWAIT C/S CONTINUE VANCOMYCIN/ AZTREONAM/ CLINDAMYCIN PRESSORS ICU MONITORING
[2018-07-23] MEDS: MAGNESIUM 1GM/D5W - 1 GM/100 ML IVPB IVPB SCH ×3 (10:00→12:34)
[2018-07-23 10:03] LABS: ANISOCYTOSIS 0; MACROCYTOSIS 0; PLATELET ESTIMATE NORMAL
--- NOTE | 2018-07-23 11:06 | ECHO ---
Name: LOU RIVAS Exam:Adult Echocardiogram Study Date: 07/23/2018 10:16 AM Age: 27 yrs Reason For Study: r/o valve abnormality Height: 60 in Weight: 116 lb BSA: 1.5 m2 Left Ventricle The left ventricular size, thickness and function are normal. Ejection Fraction = 55-60%. Left Ventri cular Filling pattern is normal for age. Right Ventricle The right ventricle is normal in size and function. Atria Normal left and right atrial size and function. Mitral Valve The mitral valve is normal in structure and function. There is no mitral valve stenosis. There is mil d mitral regurgitation. Tricuspid Valve The tricuspid valve is normal in structure and function. There is mild tricuspid regurgitation. Aortic Valve The aortic valve opens well. No hemodynamically significant valvular aortic stenosis. No aortic regur gitation is present. Pulmonic Valve The pulmonic valve is not well visualized. There is no pulmonic valvular stenosis. Great Vessels The aortic root is normal size. Pericardium/Pleura There is no pericardial effusion. Interpretation Summary The left ventricular size, thickness and function are normal Ejection Fraction = 55-60%. The right ventricle is normal in size and function. There is mild mitral regurgitation. There is mild tricuspid regurgitation. There is no pericardial effusion. MD De La Torre *Mariela 07/23/2018 11:06 AM
--- NOTE | 2018-07-23 11:35 | PN ---
Teaching Attending Note Name of Resident: Hi Garcia ATTENDING PHYSICIAN STATEMENT I saw and evaluated the patient. I reviewed the resident's note and discussed the case with the resident. I agree with the resident's findings and plan as documented. SUBJECTIVE: Pt seen and examined in the ICU. Remains on levophed gtt. Fever curve trending down. Blood cultures growing gram positive cocci in chains. OBJECTIVE: Vital Signs Period Temp Pulse Resp BP Sys/Oseguera Pulse Ox Last 24 Hr 96.5 F-105.3 F 55-109 13-22 70-107/42-82 100-100 Intake & Output 07/20/18 07/21/18 07/22/18 07/23/18 23:59 23:59 23:59 23:59 Intake Total 1150 4500 2000 Output Total 3200 400 Balance 1150 1300 1600 Weight 50.802 kg 53.025 kg Gen: mildly tachypneic with exertion Heart: RRR Lung: decreased breath sounds at the bases Abd: soft, mild TTP lower abdomen Ext: no edema CBC, BMP 07/23/18 05:30 07/23/18 05:30 CXR: small effusions Active Medications Acetaminophen (Tylenol -) 650 mg PO Q3H PRN PRN Reason: PAIN Last Admin: 07/22/18 17:18 Dose: 650 mg Benzocaine (Americaine 20% [place] -) 1 spray TP PRN PRN PRN Reason: PAIN Benzocaine (Americaine Ointment -) 1 applic TP PRN PRN PRN Reason: PAIN Bisacodyl (Dulcolax Suppository -) 10 mg RC PRN PRN PRN Reason: CONSTIPATION Chlorhexidine Gluconate (Hibiclens For Decolonization -) 1 applic TP HS YONAS Last Admin: 07/22/18 23:48 Dose: 1 applic Aztreonam 2 gm/ Dextrose 100 mls @ 100 mls/hr IVPB Q8H-IV YONAS; Protocol Last Admin: 07/23/18 09:32 Dose: 100 mls/hr Clindamycin Phosphate (Cleocin 600 Mg Premix Ivpb -) 600 mg in 50 mls @ 100 mls /hr IVPB Q8H-IV YONAS; Protocol Last Admin: 07/23/18 04:17 Dose: 100 mls/hr Vancomycin HCl (Vancomycin (Pre-Docked)) 1,000 mg in 250 mls @ 166.667 mls/hr IVPB Q12H [facility]; Protocol Last Admin: 07/23/18 05:50 Dose: 166.667 mls/hr Norepinephrine Bitartrate 8, (000 mcg/ Dextrose) 500 mls @ 18.75 mls/hr IV TITR YONAS; Protocol Potassium Phosphate 20 mm/ (Sodium Chloride) 256.6667 mls @ 62.5 mls/hr IVPB ONCE ONE Stop: 07/23/18 12:05 Magnesium Sulfate/Dextrose (Magnesium 1gm/D5w -) 1 gm in 100 mls @ 100 mls/hr IVPB Q1H [facility] Stop: 07/23/18 11:59 Last Admin: 07/23/18 10:30 Dose: 100 mls/hr Sodium Chloride (Normal Saline -) 1,000 mls @ 75 mls/hr IV ASDIR [facility] Mupirocin (Bactroban Ointment (For Decolonization) -) 1 applic NS BID [facility] Stop: 07/27/18 21:59 Last Admin: 07/22/18 23:48 Dose: 1 applic Senna/Docusate Sodium (Pericolace -) 2 tablet PO HS PRN PRN Reason: CONSTIPATION Witch Aline/Glycerin (Tucks Pads -) 1 pad TP PRN PRN PRN Reason: PAIN ASSESSMENT AND PLAN: Gram Positive Bacteremia Septic Shock Lactic Acidosis s/p Asthma - continue antibiotics - f/u cultures - taper pressors to maintain MAP >65 - decrease IVF rate - replete lytes - d/c femoral line once off pressors - PO as tolerated - DVT prophylaxis - continue ICU monitoring critical care time spent in reviewing chart, evaluating patient and formulating plan 35 min
--- NOTE | 2018-07-23 12:09 | PN ---
Teaching Attending Note Name of Resident: Alyse Caraballo ATTENDING PHYSICIAN STATEMENT I saw and evaluated the patient. I reviewed the resident's note and discussed the case with the resident. I agree with the resident's findings and plan as documented. SUBJECTIVE: denies any SOB,has pain in Abd , has discomfort in posterior b/l lower chest when she breaths. no diarrhea . no palpitations. has spotting from vagina OBJECTIVE: NAd, AAOx3. MMM Cv: RRR, HR 60s. no MRG Lungs: CTAB MS: TTP over b/l paraspinal muscls in lower thoracix area. No tenderness over the spine Abd: soft, Nd, TTP in bilateral lower quadrants and suprapubic area. no rebound tenderness. Ext : no edema or erythema ASSESSMENT AND PLAN: 27 y/o lady with h/o asthma , s/p vaginal delivery on 07/21 who developed septic shock omn 07/22 and was admitted to ICU 1- Septic shock, with G+ cocci bacteremia. + strep throat. possible endometritis . - cont vanco , aztreonam and clinda - check vanco trough before 4th dose - repeat blood cx - cont IVF and taper down Levophed. - US reviewed, no retained products 2- hypocalcemia : corrcted ca 8.2 . monitor hypomagnesemia : replete hypophosphatemia ; replete 3- h/o Asthma, not active ICU level of care
[2018-07-23] MEDS: SODIUM CHLORIDE 1,000 ML IV SCH (12:12)
[2018-07-23 12:27] VITALS: BMI 22.6
--- NOTE | 2018-07-23 14:09 | PN ---
Progress Note (short form) - Note Progress Note: CLUB FORMER ppd 1, s/p , sepsis, has no c/o , noexcess vaginal bleeding, no dysuria CBC, BMP 07/23/18 05:30 07/23/18 05:30 Last Vital Signs Temp Pulse Resp BP Pulse Ox 98.3 F 105 H 20 111/76 100 07/23/18 10:00 07/23/18 12:00 07/23/18 12:00 07/23/18 12:00 07/23/18 09:00 abdomen soft, non tender , no cva uterus firm, non tender lochia mild ,no odor no calf tenderness impression , possible GBS sepsis , r/o yti plan cont iv antibiotic monitor BP wean off vasoprssor
--- NOTE | 2018-07-23 15:29 | PN ---
Progress Note (short form) - Note Progress Note: ICU Day 2 Overnight Events: Pt admitted to the ICU. Crash femoral line was placed by medicine attending for hypotension. No additional fevers after midnight. Pt endorses generalized abdominal pain this morning. Denies chest pain, SOB, nausea/vomiting. Per outside records from [facility]: GBS + on genital swap dated 25 June 2018 - Resistant to clindamycin. Sensitive to Levofloxacin (MARCOS <=0.5), Penicillin, and Vancomycin (MARCOS 0.5). OBJECTIVE: Vital Signs Period Temp Pulse Resp BP Sys/Oseguera Pulse Ox Last 24 Hr 96.5 F-104.7 F 55-109 13-22 70-111/42-82 100-100 Intake & Output 07/23/18 07/23/18 07/23/18 06:59 14:59 22:59 Intake Total 3000 Output Total 400 Balance 2600 Weight 52.617 kg Intake: IV 3000 Normal Saline - 1,000 ml 3000 @ 1000 mls/hr IV ASDIR STA Rx#:[id number] Output: Urine 400 Void 400 Other: Voiding Method Bedpan Bowel Movement No Height 1.52 m Body Mass Index (BMI) 22.6 Weight Measurement Method Built in Bedscale Lines: - Left Femoral Triple Lumen (Placed 23 Jul 2018). Day 1. Drains: - None Supplemental Oxygen: Low flow nasal cannula. Physical Exams: GENERAL: The patient is awake, alert, and fully oriented, in no acute distress. HEAD: Normal with no signs of trauma. LUNGS: Breath sounds equal, clear to auscultation bilaterally, no wheezes, no crackles, no accessory muscle use. HEART: Regular rate and rhythm, S1, S2 without murmur, rub or gallop. ABDOMEN: Tender diffusely but greater in lower quadrants; no rebound or guarding. Soft and nondistended. EXTREMITIES: 2+ pulses, warm, well-perfused, no edema. NEUROLOGICAL: Normal speech, gait not observed. PSYCH: Normal mood, normal affect. SKIN: Warm and dry. Drips: - No Anti Infectives: - Vancomycin (Started 22 Jul 2018), Day 1 - Clindamycin (Started 22 Jul 2018), Day 1 - Aztreonam (Started 22 Jul 2018), Day 1 Microbiology 07/22/18 13:53 Blood - Peripheral Venous Blood Culture - Preliminary Streptococcus Pyogenes Grp A 07/22/18 13:59 Blood - Peripheral Venous Blood Culture - Preliminary Pending Organism Active Medications Acetaminophen (Ofirmev Injection -) 1,000 mg IVPB Q6H PRN PRN Reason: PAIN LEVEL 6-10 Benzocaine (Americaine 20% [place] -) 1 spray TP PRN PRN PRN Reason: PAIN Benzocaine (Americaine Ointment -) 1 applic TP PRN PRN PRN Reason: PAIN Bisacodyl (Dulcolax Suppository -) 10 mg RC PRN PRN PRN Reason: CONSTIPATION Chlorhexidine Gluconate (Hibiclens For Decolonization -) 1 applic TP HS YONAS Last Admin: 07/22/18 23:48 Dose: 1 applic Aztreonam 2 gm/ Dextrose 100 mls @ 100 mls/hr IVPB Q8H-IV YONAS; Protocol Last Admin: 07/23/18 09:32 Dose: 100 mls/hr Clindamycin Phosphate (Cleocin 600 Mg Premix Ivpb -) 600 mg in 50 mls @ 100 mls /hr IVPB Q8H-IV YONAS; Protocol Last Admin: 07/23/18 10:00 Dose: 100 mls/hr Vancomycin HCl (Vancomycin (Pre-Docked)) 1,000 mg in 250 mls @ 166.667 mls/hr IVPB Q12H YONAS; Protocol Last Admin: 07/23/18 05:50 Dose: 166.667 mls/hr Norepinephrine Bitartrate 8, (000 mcg/ Dextrose) 500 mls @ 18.75 mls/hr IV TITR YONAS; Protocol Sodium Chloride (Normal Saline -) 1,000 mls @ 75 mls/hr IV ASDIR YONAS Last Admin: 07/23/18 12:12 Dose: 75 mls/hr Mupirocin (Bactroban Ointment (For Decolonization) -) 1 applic NS BID YONAS Stop: 07/27/18 21:59 Last Admin: 07/22/18 23:48 Dose: 1 applic Senna/Docusate Sodium (Pericolace -) 2 tablet PO HS PRN PRN Reason: CONSTIPATION Witch Aline/Glycerin (Tucks Pads -) 1 pad TP PRN PRN PRN Reason: PAIN ASSESSMENT / PLAN: 27 year 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 Developed septic shock on day 1. GBS positive NOT adequately treated before vaginal delivery. Neuro (& Psych): - A/O x4. Not on sedating drips. Endocrine: - Hypocalcemic, hypomagnesemic, hypophosphatemic on morning labs. Replenished. - Will trend electrolytes. Cardiovascular: - Hypotensive and tachycardic. Suspect secondary to septic shock from GBS infection. MAPs maintained with Norepinephrine drip. Goal to titrate off today. Pulm / Resp: - H/o asthma. Stable on room air. Nasal cannula PRN to maintain goal of SPO2 >94 %. Genitourinary: - GBS positive on outpatient swab. Did not receive antibiotics during delivery. Continue antibiotics. Reproductive: - Delivering OBGYN Dr. Merlin Villaseñor - rounding by Dr. Giron - Requested nurse consultation to assist pt with breast pumping. To discard milk as pt is receiving antibiotics at this time. - Suspect diffuse abdominal pain is secondary to discomfort. Hematologic: - Mildly anemic today. Suspect secondary to delivery and dilutional effect given large amount of IV fluid receivined in past 24 hours. Will trend. Infectious Disease: - Consulted Dr. Escobar. - Septic shock. Suspect secondary to GBS infection. Clinically improving. Clearing lactic acid. - Blood cultures positive bottles for gram positive cocci in chains in both aerobic and anaerobic. Suspect group B strep. Repeat blood cultures ordered by primary team this morning. Will repeat blood cultures tomorrow morning as repeat cultures were drawn before pt had received 24hrs of antibiotics. - ID team requested Echo to evaluate for valvular vegetation. None noted. Low suspicion for endocarditis. - Group A strep rapid throat swab positive. Unsure of clinical significance as pt does sore throat. Considering GAS toxic shock but this seems less likely given known GBS status. - Antibiotics per ID team. H/o penicillin allergy. FEN: - IVF NS, rate decreased as pt appeared to be developing small bibasilar pleural effusions on CXR this AM. - Regular diet Prophylaxis: - DVT: SCDs - GI: Not indicated. Dispo: Pt to remain in ICU for close hemodynamic monitoring while receiving vasoactive agents. Hi Garcia MD, PGY1 ICU Consult Service Critical Care Total Critical Care Time (in minutes): 45 Critical Care Statement: The care of this patient involved high complexity decision making to prevent further life threatening deterioration of the patient 's condition and/or to evaluate & treat vital organ system(s) failure or risk of failure.
[2018-07-23] MEDS ORDERED: IBUPROFEN 800 MG/8 ML IJ IVPB ONE (16:32)
--- NOTE | 2018-07-23 17:09 | PROC ---
Procedure Note Procedure: Asked for help in CVC placement 2/2 failed R-groin attempt. Using sterile technique introduced needle and cannulated vein but patient kicked despite valium for sedation (given previously by ICU team) and 1% lido infiltrated by procedural training and development assistant. Aborted and held pressure. Using angiocath successfully canulated L-femoral vein and introduced guidewire, nicked, dilated, smoothly threaded over CVC without any issues and removed wire and sutrueed into place. Tegaderm applied Confirmed with VBG Present were ICU nursing, nursing cottage supervisor, floor resident team, icu resident , medical students [place] to be started once confirmed
[2018-07-23] MEDS ORDERED: DEXTROSE 5%-WATER 100 ML IVPB ONE (17:32)
[2018-07-23] MEDS: CEFTRIAXONE 2 GM in DEXTROSE 5%-WATER 100 ML IVPB SCH ×2 (17:43)
--- NOTE | 2018-07-23 17:43 | PN ---
Physical Exam: SUBJECTIVE: Patient seen and examined at bedside this morning. Overnight, patient was noted to be hypotensive and transferred to the ICU. IV fluid boluses were given, but patient remained hypotensive. Levophed drip was started. This morning, patient reports feeling better, but has some bilateral chest and back pain when taking deep breaths, as wells as abdominal discomfort. Otherwise denies chills, headache, dizziness, shortness of breath, diarrhea, vaginal bleeding. OBJECTIVE: Vital Signs Temperature 98.3 F 07/23/18 10:00 Pulse Rate 106 H 07/23/18 16:00 Respiratory Rate 20 07/23/18 16:00 Blood Pressure 100/63 07/23/18 16:00 O2 Sat by Pulse Oximetry (%) 100 07/23/18 09:00 GENERAL: Awake, alert, and fully oriented, in no acute distress. HEAD: Normal with no signs of trauma. EYES: PERRLA, EOMI, sclera anicteric, conjunctiva clear. EARS, NOSE, THROAT: oropharynx clear without exudates. Moist mucous membranes. NECK: Normal range of motion, supple without lymphadenopathy, JVD, or masses. LUNGS: Breath sounds equal, clear to auscultation bilaterally. HEART:RRR, normal S1 and S2 without murmur, rub or gallop. ABDOMEN: Soft, diffuse tenderness, not distended, normoactive bowel sounds, no guarding. MUSCULOSKELETAL: Normal range of motion at all joints. No bony deformities or tenderness. UPPER EXTREMITIES: 2+ pulses, warm, well-perfused. No peripheral edema. LOWER EXTREMITIES: 2+ pulses, warm, well-perfused. No peripheral edema. NEUROLOGICAL: Cranial nerves II-XII intact. Normal speech. Gait not observed. PSYCHIATRIC: Cooperative. Good eye contact. Appropriate mood and affect. SKIN: Warm, dry, normal turgor, no rashes or lesions noted. Laboratory Results - last 24 hr 07/22/18 07/22/18 07/22/18 19:00 19:00 23:00 WBC RBC Hgb Hct MCV MCH MCHC RDW Plt Count MPV Absolute Neuts (auto) Neutrophils % Neutrophils % (Manual) Band Neutrophils % Lymphocytes % Lymphocytes % (Manual) Monocytes % Monocytes % (Manual) Eosinophils % Eosinophils % (Manual) Basophils % Basophils % (Manual) Myelocytes % (Man) Promyelocytes % (Man) Blast Cells % (Manual) Nucleated RBC % Metamyelocytes Hypochromia Platelet Estimate Polychromasia Poikilocytosis Anisocytosis Microcytosis Macrocytosis Acanthocytes (Spur) PT with INR INR PTT (Actin FS) Puncture Site ABG pH ABG pCO2 at Pt Temp ABG pO2 at Pt Temp ABG HCO3 ABG O2 Sat (Measured) ABG O2 Content ABG Base Excess Ismael Test VBG pH POC VBG pCO2 POC VBG pO2 VBG HCO3 VBG O2 Sat (Colin) VBG Base Excess Oxygen Flow Rate Sodium Potassium Chloride Carbon Dioxide Anion Gap BUN Creatinine Creat Clearance w eGFR Random Glucose Lactic Acid 2.2 H* Calcium Phosphorus Magnesium Creatine Kinase 72 Influenza A (Rapid) Negative Influenza B (Rapid) Negative Group A Strep Rapid 07/22/18 07/23/18 07/23/18 23:00 03:00 03:00 WBC RBC Hgb Hct MCV MCH MCHC RDW Plt Count MPV Absolute Neuts (auto) Neutrophils % Neutrophils % (Manual) Band Neutrophils % Lymphocytes % Lymphocytes % (Manual) Monocytes % Monocytes % (Manual) Eosinophils % Eosinophils % (Manual) Basophils % Basophils % (Manual) Myelocytes % (Man) Promyelocytes % (Man) Blast Cells % (Manual) Nucleated RBC % Metamyelocytes Hypochromia Platelet Estimate Polychromasia Poikilocytosis Anisocytosis Microcytosis Macrocytosis Acanthocytes (Spur) PT with INR INR PTT (Actin FS) Puncture Site No Result Required. ABG pH 7.35 ABG pCO2 at Pt Temp 32.1 L ABG pO2 at Pt Temp 55.4 L ABG HCO3 17.2 L ABG O2 Sat (Measured) 86.7 L ABG O2 Content 11.0 L ABG Base Excess -7.1 L Ismael Test No Result Required. VBG pH 7.35 POC VBG pCO2 31.7 L POC VBG pO2 60.0 H VBG HCO3 17.2 L VBG O2 Sat (Colin) 89.3 H VBG Base Excess -7.1 L Oxygen Flow Rate No Result Required. Sodium Potassium Chloride Carbon Dioxide Anion Gap BUN Creatinine Creat Clearance w eGFR Random Glucose Lactic Acid Calcium Phosphorus Magnesium Creatine Kinase Influenza A (Rapid) Influenza B (Rapid) Group A Strep Rapid Positive 07/23/18 07/23/18 07/23/18 05:30 05:30 05:30 WBC 6.9 RBC 3.09 L Hgb 9.7 L Hct 28.5 L MCV 92.2 MCH 31.5 MCHC 34.1 RDW 14.3 Plt Count 166 MPV 9.0 D Absolute Neuts (auto) 6.4 Neutrophils % 92.9 H Neutrophils % (Manual) 46.5 Band Neutrophils % 35.7 Lymphocytes % 4.7 L D Lymphocytes % (Manual) 6.9 L D Monocytes % 2.2 L Monocytes % (Manual) 0 L Eosinophils % 0.1 D Eosinophils % (Manual) 0.0 Basophils % 0.1 D Basophils % (Manual) 0.0 Myelocytes % (Man) 3 H D Promyelocytes % (Man) 0 Blast Cells % (Manual) 0 Nucleated RBC % 0 Metamyelocytes 8 H D Hypochromia 0 Platelet Estimate Normal Polychromasia 0 Poikilocytosis 1+ Anisocytosis 0 Microcytosis 0 Macrocytosis 0 Acanthocytes (Spur) 1+ PT with INR INR PTT (Actin FS) Puncture Site ABG pH ABG pCO2 at Pt Temp ABG pO2 at Pt Temp ABG HCO3 ABG O2 Sat (Measured) ABG O2 Content ABG Base Excess Ismael Test VBG pH POC VBG pCO2 POC VBG pO2 VBG HCO3 VBG O2 Sat (Colin) VBG Base Excess Oxygen Flow Rate Sodium 144 Potassium 4.0 Chloride 119 H Carbon Dioxide 18 L Anion Gap 7 L BUN 8 Creatinine 0.4 L Creat Clearance w eGFR 191.47 Random Glucose 103 Lactic Acid 1.3 Calcium 6.6 L* Phosphorus 2.3 L Magnesium 1.4 L Creatine Kinase Influenza A (Rapid) Influenza B (Rapid) Group A Strep Rapid 07/23/18 05:30 WBC RBC Hgb Hct MCV MCH MCHC RDW Plt Count MPV Absolute Neuts (auto) Neutrophils % Neutrophils % (Manual) Band Neutrophils % Lymphocytes % Lymphocytes % (Manual) Monocytes % Monocytes % (Manual) Eosinophils % Eosinophils % (Manual) Basophils % Basophils % (Manual) Myelocytes % (Man) Promyelocytes % (Man) Blast Cells % (Manual) Nucleated RBC % Metamyelocytes Hypochromia Platelet Estimate Polychromasia Poikilocytosis Anisocytosis Microcytosis Macrocytosis Acanthocytes (Spur) PT with INR 13.50 H INR 1.14 H PTT (Actin FS) 30.7 Puncture Site ABG pH ABG pCO2 at Pt Temp ABG pO2 at Pt Temp ABG HCO3 ABG O2 Sat (Measured) ABG O2 Content ABG Base Excess Ismael Test VBG pH POC VBG pCO2 POC VBG pO2 VBG HCO3 VBG O2 Sat (Colin) VBG Base Excess Oxygen Flow Rate Sodium Potassium Chloride Carbon Dioxide Anion Gap BUN Creatinine Creat Clearance w eGFR Random Glucose Lactic Acid Calcium Phosphorus Magnesium Creatine Kinase Influenza A (Rapid) Influenza B (Rapid) Group A Strep Rapid Active Medications Generic Name Dose Route Start Last Admin Trade Name Freq PRN Reason Stop Dose Admin Acetaminophen 1,000 mg 07/23/18 11:45 Ofirmev Injection - IVPB Q6H PRN PAIN LEVEL 6-10 Benzocaine 1 spray 07/21/18 11:45 Americaine 20% [place] - TP PRN PRN PAIN Benzocaine 1 applic 07/21/18 11:45 Americaine Ointment - TP PRN PRN PAIN Bisacodyl 10 mg 07/21/18 11:45 Dulcolax Suppository - RC PRN PRN CONSTIPATION Chlorhexidine Gluconate 1 applic 07/22/18 22:00 07/22/18 23:48 Hibiclens For Decolonization - TP 1 applic HS YONAS Administration Clindamycin Phosphate 600 mg in 50 mls @ 100 mls/hr 07/22/18 18:00 07/23/18 10:00 Cleocin 600 Mg Premix Ivpb - IVPB 100 mls/hr Q8H-IV YONAS Administration Protocol Norepinephrine Bitartrate 8, 500 mls @ 18.75 mls/hr 07/23/18 07:30 07/23/18 16:00 000 mcg/ Dextrose IV 0 mcg/min TITR YONAS 0 mls/hr Titration Protocol 5 MCG/MIN Sodium Chloride 1,000 mls @ 75 mls/hr 07/23/18 11:22 07/23/18 12:12 Normal Saline - IV 75 mls/hr ASDIR YONAS Administration Ceftriaxone Sodium 2 gm/ 100 mls @ 200 mls/hr 07/23/18 17:30 Dextrose IVPB DAILY YONAS Protocol Mupirocin 1 applic 07/22/18 22:00 07/23/18 09:00 Bactroban Ointment (For Decolonization) - NS 07/27/18 21:59 1 applic BID YONAS Administration Senna/Docusate Sodium 2 tablet 07/22/18 22:00 Pericolace - PO HS PRN CONSTIPATION Witch Aline/Glycerin 1 pad 07/21/18 11:45 Tucks Pads - TP PRN PRN PAIN ASSESSMENT/PLAN: Patient is a 27 year old female, ([id number]), was admitted for spontaneous vaginal delivery, presented with sudden onset high fever, tachycardia and hypotension. #Septic shock likely 2/2 Grp A Strep Bacteremia -Blood cx: grp A strep -Rapid strep A throat test: positive -Lactic acidosis resolved -IV fluids -Levophed tapered down. Now off pressors. -pelvic ultrasound reviewed -UA and urine culture pending -Repeat blood cultures this morning, pending -Vanc trough level before 4th dose -ID (Dr. Escobar) consulted. Recommendations appreciated. -Aztreonam 2gm q8, Clindamycin 600mg q8, Vancomycin 1000mg q12 -Echo: LV normal, RV normal. EF 55-60%. Mild MR, mild TR, no pericardial effusion. #FEN -IV NS @125cc/hr -HypoCa, hypoMg, repleted -routine bmp monitoring -Regular diet #Prophylaxis -SCDs,early ambulation #Disposition -full code Dispo: We will continue to follow the patient. Thank you for this consultative opportunity. Visit type - Emergency Visit Emergency Visit: Yes ED Registration Date: 07/21/18 Care time: The patient presented to the Emergency Department on the above date and was hospitalized for further evaluation of their emergent condition. - New Patient This patient is new to me today: No - Critical Care Critical Care patient: Yes Total Critical Care Time (in minutes): 40 Critical Care Statement: The care of this patient involved high complexity decision making to prevent further life threatening deterioration of the patient 's condition and/or to evaluate & treat vital organ system(s) failure or risk of failure.
[2018-07-23] MEDS: CHLORHEXIDINE GLUCONATE 4% CLEANSER FOR DECOLONIZATION TP SCH (22:45)
[2018-07-24] MEDS: CLINDAMYCIN 600MG PREMIX IVPB 600 MG/50 ML BAG IVPB SCH ×3 (02:06→19:15)
[2018-07-24] MEDS: ACETAMINOPHEN 1000 MG/100 ML VIAL (NON FORMULARY) IVPB PRN ×3 (03:22→21:41)
[2018-07-24 06:45] LABS: BASO % 0.1 % (0-2.0); EOS % 0.3 % (0-4.5); HEMATOCRIT 25.4 % (32.4-45.2); HEMOGLOBIN 8.9 GM/dL (10.7-15.3); LYMPH % 12.8 % (8-40); MCH 31.7 pg (25.7-33.7); MCHC 35.1 g/dl (32.0-36.0); MEAN CELL VOLUME 90.4 fl (80-96); MEAN PLT VOLUME 7.9 fl (7.5-11.1); MONO % 2.8 % (3.8-10.2); PLATELET COUNT 152 K/MM3 (134-434); RBC 2.81 M/mm3 (3.60-5.2); RDW 14.2 % (11.6-15.6); WHITE BLOOD COUNT 4.3 K/mm3 (4.0-10.0)
[2018-07-24 07:16] LABS: ALBUMIN 1.6 g/dl (3.4-5.0); ALK PHOS 127 U/L (45-117); ANION GAP 8 MMOL/L (8-16); BILIRUBIN,TOTAL 0.4 mg/dL (0.2-1); BLOOD UREA NITROGEN 6 mg/dL (7-18); CALCIUM 7.3 mg/dL (8.5-10.1); CHLORIDE 112 mmol/L (98-107); CO2 22 mmol/L (21-32); CREATININE 0.6 mg/dL (0.55-1.3); GLUCOSE,RANDOM 71 mg/dL (74-106); MAGNESIUM 1.7 mg/dL (1.8-2.4); PHOSPHOROUS 3.2 mg/dL (2.5-4.9); POTASSIUM 3.4 mmol/L (3.5-5.1); SGOT/AST 28 U/L (15-37); SGPT/ALT 21 U/L (13-61); SODIUM 142 mmol/L (136-145); TOT PROT 4.1 g/dl (6.4-8.2)
--- NOTE | 2018-07-24 07:47 | PN ---
Physical Exam: SUBJECTIVE: Patient seen and examined resting in chair NAD. afebrile and hemodynamically stable. off pressors for almost 12 hrs, fem line removed. BP 106/74 hr 107. feels well, denies f/c. reports milf soreness in the pelvic and vaginal region, denies heavy bleeding. still was not seen by j2ee consultant but has pump available in room. OBJECTIVE: Vital Signs Period Temp Pulse Resp BP Sys/Oseguera Pulse Ox Last 24 Hr 98.1 F-99.1 F 58-126 16-22 89-111/57-82 100-100 GENERAL: The patient is awake, alert, and fully oriented, in no acute distress. HEAD: Normal with no signs of trauma. EYES: PERRL, extraocular movements intact, sclera anicteric, conjunctiva clear. No ptosis. ENT:moist mucous membranes. NECK: supple. LUNGS: Breath sounds equal, clear to auscultation bilaterally, no wheezes, no crackles, no accessory muscle use. HEART: slightly tachy rate and regular rhythm, S1, S2 ABDOMEN: Soft, mildly tender pelvic, uterus form at level just below belly button, nondistended, normoactive bowel sounds, no guarding, no rebound, no hepatosplenomegaly, no masses. EXTREMITIES: 2+ pulses, warm, well-perfused, no edema. NEUROLOGICAL: Cranial nerves II through XII grossly intact. Normal speech, normal gait PSYCH: Normal mood, normal affect. SKIN: Warm, dry Laboratory Results - last 24 hr 07/23/18 07/23/18 07/24/18 05:30 20:00 05:30 WBC 6.9 4.3 RBC 3.09 L 2.81 L Hgb 9.7 L 8.9 L Hct 28.5 L 25.4 L MCV 92.2 90.4 MCH 31.5 31.7 MCHC 34.1 35.1 RDW 14.3 14.2 Plt Count 166 152 MPV 9.0 D 7.9 D Absolute Neuts (auto) 6.4 3.6 Neutrophils % 92.9 H 84.0 H Neutrophils % (Manual) 46.5 Band Neutrophils % 35.7 Lymphocytes % 4.7 L D 12.8 D Lymphocytes % (Manual) 6.9 L D Monocytes % 2.2 L 2.8 L Monocytes % (Manual) 0 L Eosinophils % 0.1 D 0.3 D Eosinophils % (Manual) 0.0 Basophils % 0.1 D 0.1 Basophils % (Manual) 0.0 Myelocytes % (Man) 3 H D Promyelocytes % (Man) 0 Blast Cells % (Manual) 0 Nucleated RBC % 0 0 Metamyelocytes 8 H D Hypochromia 0 Platelet Estimate Normal Polychromasia 0 Poikilocytosis 1+ Anisocytosis 0 Microcytosis 0 Macrocytosis 0 Acanthocytes (Spur) 1+ Sodium Potassium Chloride Carbon Dioxide Anion Gap BUN Creatinine Creat Clearance w eGFR Random Glucose Calcium Phosphorus Magnesium Total Bilirubin AST ALT Alkaline Phosphatase Total Protein Albumin Vancomycin Pre-Dose 3.8 L 07/24/18 05:30 WBC RBC Hgb Hct MCV MCH MCHC RDW Plt Count MPV Absolute Neuts (auto) Neutrophils % Neutrophils % (Manual) Band Neutrophils % Lymphocytes % Lymphocytes % (Manual) Monocytes % Monocytes % (Manual) Eosinophils % Eosinophils % (Manual) Basophils % Basophils % (Manual) Myelocytes % (Man) Promyelocytes % (Man) Blast Cells % (Manual) Nucleated RBC % Metamyelocytes Hypochromia Platelet Estimate Polychromasia Poikilocytosis Anisocytosis Microcytosis Macrocytosis Acanthocytes (Spur) Sodium 142 Potassium 3.4 L Chloride 112 H Carbon Dioxide 22 Anion Gap 8 BUN 6 L Creatinine 0.6 Creat Clearance w eGFR 119.92 Random Glucose 71 L Calcium 7.3 L Phosphorus 3.2 Magnesium 1.7 L Total Bilirubin 0.4 AST 28 ALT 21 Alkaline Phosphatase 127 H Total Protein 4.1 L Albumin 1.6 L Vancomycin Pre-Dose Active Medications Generic Name Dose Route Start Last Admin Trade Name Freq PRN Reason Stop Dose Admin Acetaminophen 1,000 mg 07/23/18 11:45 07/24/18 03:22 Ofirmev Injection - IVPB 1,000 mg Q6H PRN Administration PAIN LEVEL 6-10 Benzocaine 1 spray 07/21/18 11:45 Americaine 20% [place] - TP PRN PRN PAIN Benzocaine 1 applic 07/21/18 11:45 [place]aine Ointment - TP PRN PRN PAIN Bisacodyl 10 mg 07/21/18 11:45 Dulcolax Suppository - RC PRN PRN CONSTIPATION Chlorhexidine Gluconate 1 applic 07/22/18 22:00 07/23/18 22:45 Hibiclens For Decolonization - TP 1 applic HS YONAS Administration Clindamycin Phosphate 600 mg in 50 mls @ 100 mls/hr 07/22/18 18:00 07/24/18 02:06 Cleocin 600 Mg Premix Ivpb - IVPB 100 mls/hr Q8H-IV YONAS Administration Protocol Norepinephrine Bitartrate 8, 500 mls @ 18.75 mls/hr 07/23/18 07:30 07/23/18 16:00 000 mcg/ Dextrose IV 0 mcg/min TITR YONAS 0 mls/hr Titration Protocol 5 MCG/MIN Sodium Chloride 1,000 mls @ 75 mls/hr 07/23/18 11:22 07/23/18 12:12 Normal Saline - IV 75 mls/hr ASDIR YONAS Administration Ceftriaxone Sodium 2 gm/ 100 mls @ 200 mls/hr 07/23/18 17:30 07/23/18 17:43 Dextrose IVPB 200 mls/hr DAILY YONAS Administration Protocol Mupirocin 1 applic 07/22/18 22:00 07/23/18 22:45 Bactroban Ointment (For Decolonization) - NS 07/27/18 21:59 1 applic BID YONAS Administration Potassium Chloride 40 meq 07/24/18 07:44 K-Dur - PO 07/24/18 07:45 ONCE ONE Senna/Docusate Sodium 2 tablet 07/22/18 22:00 Pericolace - PO HS PRN CONSTIPATION Witch Aline/Glycerin 1 pad 07/21/18 11:45 Tucks Pads - TP PRN PRN PAIN ASSESSMENT/PLAN: Patient is a 27 year old female, ([id number]), was admitted for spontaneous vaginal delivery, presented with sudden onset high fever, tachycardia and hypotension. Septic shock due to GAS Bacteremia -resolved; off pressors for 12 hr -continue NS @ 100 -blood cultures and sensitivities p/d -abx per ID clinda/rocephin d 2 PPD 3 -uterus firm and in appropriate position/appropriate size -moderate vaginal bleeding -buzzsaw operator following -awaitng lactatin merchandising consultant -continue pumping q3h and discarding milk if any is produced -patient will be able to walk down to the nursery to see her once on telemetry floor normocytic anemia -Hgb 8.9 likely dilutional + expected post blood loss Dispo: xfer tele for 24 hr Problem List - Problems (1) Septic shock Code(s): A41.9 - SEPSIS, UNSPECIFIED ORGANISM; R65.21 - SEVERE SEPSIS WITH SEPTIC SHOCK (2) Asthma Code(s): J45.909 - UNSPECIFIED ASTHMA, UNCOMPLICATED (3) Post term over 40 weeks Code(s): O48.0 - POST-TERM (4) Status post vaginal delivery Code(s): CIV8178 - Visit type - Emergency Visit Emergency Visit: No - New Patient This patient is new to me today: Yes Date on this admission: 07/24/18 - Critical Care Critical Care patient: No - Discharge Referral Referred to [facility] No
[2018-07-24] MEDS ORDERED: POTASSIUM CHLORIDE TABS 20 MEQ TABLET.ER (FP) PO ONE (08:15)
[2018-07-24] MEDS: NOREPINEPHRINE BITARTRATE 8,000 MCG in DEXTROSE 5%-WATER - 492 ML IV SCH (08:45)
[2018-07-24] MEDS ORDERED: DEXTROSE 5%-WATER 100 ML IVPB ONE (08:50)
--- NOTE | 2018-07-24 08:50 | PN ---
Progress Note (short form) - Note Progress Note: Seen and examined in the ICU -BP stable off pressors -d/c TLC -OOB to chair -deneis: CAMPOS/CP/SOB/F/chills Active Medications Acetaminophen (Ofirmev Injection -) 1,000 mg IVPB Q6H PRN PRN Reason: PAIN LEVEL 6-10 Last Admin: 07/24/18 03:22 Dose: 1,000 mg Benzocaine (Americaine 20% [place] -) 1 spray TP PRN PRN PRN Reason: PAIN Benzocaine (Americaine Ointment -) 1 applic TP PRN PRN PRN Reason: PAIN Bisacodyl (Dulcolax Suppository -) 10 mg RC PRN PRN PRN Reason: CONSTIPATION Chlorhexidine Gluconate (Hibiclens For Decolonization -) 1 applic TP HS YONAS Last Admin: 07/23/18 22:45 Dose: 1 applic Clindamycin Phosphate (Cleocin 600 Mg Premix Ivpb -) 600 mg in 50 mls @ 100 mls /hr IVPB Q8H-IV YONAS; Protocol Last Admin: 07/24/18 02:06 Dose: 100 mls/hr Sodium Chloride (Normal Saline -) 1,000 mls @ 75 mls/hr IV ASDIR YONAS Last Admin: 07/23/18 12:12 Dose: 75 mls/hr Ceftriaxone Sodium 2 gm/ (Dextrose) 100 mls @ 200 mls/hr IVPB DAILY YONAS; Protocol Last Admin: 07/23/18 17:43 Dose: 200 mls/hr Mupirocin (Bactroban Ointment (For Decolonization) -) 1 applic NS BID YONAS Stop: 07/27/18 21:59 Last Admin: 07/23/18 22:45 Dose: 1 applic Senna/Docusate Sodium (Pericolace -) 2 tablet PO HS PRN PRN Reason: CONSTIPATION Witch Aline/Glycerin (Tucks Pads -) 1 pad TP PRN PRN PRN Reason: PAIN Vital Signs Period Temp Pulse Resp BP Sys/Oseguera Pulse Ox Last 24 Hr 98.1 F-99.1 F 65-126 18-22 89-111/57-76 100-100 Intake & Output 07/21/18 07/22/18 07/23/18 07/24/18 23:59 23:59 23:59 23:59 Intake Total 1150 4500 3645 150 Output Total 3200 400 Balance 1150 1300 3245 150 Weight 50.802 kg 52.617 kg 54.93 kg Exam: awake, alert and cooperative w/o distress HEENT: PERRL, no JVD CV: RRR Pulm: CTA ABD: Mild tenderness w/ palp, post pardum Ext: WWP +1 Le edema Neuro: grossly intact CBC, BMP 07/24/18 05:30 07/24/18 05:30 No CXR ASSESSMENT AND PLAN: Gram Positive Bacteremia Septic Shock Lactic Acidosis s/p Asthma - continue antibiotics - d/c IVF once on floor now that she is taking PO - replete lytes - DVT prophylaxis - stable for transfer to floor critical care time spent in reviewing chart, evaluating patient and formulating plan 35 min Rosalind SESAY
--- NOTE | 2018-07-24 08:56 | PN ---
Progress Note (short form) - Note Progress Note: notes reviewed oob in chair no complaints no sore throat, no abdominal pain Vital Signs Period Temp Pulse Resp BP Sys/Oseguera Pulse Ox Last 24 Hr 98.1 F-99.1 F 65-126 18-22 89-111/57-76 100-100 cor-rrr lungs clear abd soft,nt ext no edema CBC, BMP 07/24/18 05:30 07/24/18 05:30 Microbiology 07/22/18 15:25 Throat Throat Culture - Final NO BETA HEMOLYTIC STREPTOCOCCI ISOLATED 07/22/18 13:59 Blood - Peripheral Venous Blood Culture - Preliminary Streptococcus Pyogenes Grp A 07/22/18 13:53 Blood - Peripheral Venous Blood Culture - Preliminary Streptococcus Pyogenes Grp A Current Medications Acetaminophen (Ofirmev Injection -) 1,000 mg IVPB Q6H PRN PRN Reason: PAIN LEVEL 6-10 Last Admin: 07/24/18 03:22 Dose: 1,000 mg Benzocaine (Americaine 20% [place] -) 1 spray TP PRN PRN PRN Reason: PAIN Benzocaine (Americaine Ointment -) 1 applic TP PRN PRN PRN Reason: PAIN Bisacodyl (Dulcolax Suppository -) 10 mg RC PRN PRN PRN Reason: CONSTIPATION Chlorhexidine Gluconate (Hibiclens For Decolonization -) 1 applic TP HS YONAS Last Admin: 07/23/18 22:45 Dose: 1 applic Clindamycin Phosphate (Cleocin 600 Mg Premix Ivpb -) 600 mg in 50 mls @ 100 mls /hr IVPB Q8H-IV YONAS; Protocol Last Admin: 07/24/18 02:06 Dose: 100 mls/hr Sodium Chloride (Normal Saline -) 1,000 mls @ 75 mls/hr IV ASDIR YONAS Last Admin: 07/23/18 12:12 Dose: 75 mls/hr Ceftriaxone Sodium 2 gm/ (Dextrose) 100 mls @ 200 mls/hr IVPB DAILY YONAS; Protocol Last Admin: 07/23/18 17:43 Dose: 200 mls/hr Mupirocin (Bactroban Ointment (For Decolonization) -) 1 applic NS BID YONAS Stop: 07/27/18 21:59 Last Admin: 07/23/18 22:45 Dose: 1 applic Senna/Docusate Sodium (Pericolace -) 2 tablet PO HS PRN PRN Reason: CONSTIPATION Witch Aline/Glycerin (Tucks Pads -) 1 pad TP PRN PRN PRN Reason: PAIN a/p sepsis group a strep bacteremia 07/21 pen allergy continue clindamycin and ceftriaxone repeat blood cultures pending clinically improving
[2018-07-24] MEDS: MUPIROCIN 2% TOPICAL OINTMENT FOR DECOLONIZATION NS SCH ×2 (09:30→21:38)
--- NOTE | 2018-07-24 09:32 | PN ---
Teaching Attending Note Name of Resident: Sandra Ulrich ATTENDING PHYSICIAN STATEMENT I saw and evaluated the patient. I reviewed the resident's note and discussed the case with the resident. I agree with the resident's findings and plan as documented. SUBJECTIVE: no abd pain, spotting, SOB , or fever. OBJECTIVE: NAd, AAOx3. MMM Cv: RRR. no MRG Lungs: CTAB Abd: soft, ND, TTP in bilateral lower quadrants and suprapubic area. no rebound tenderness. Ext : no edema or erythema ASSESSMENT AND PLAN: 27 y/o lady with h/o asthma , s/p vaginal delivery on 07/21 who developed septic shock omn 07/22 and was admitted to ICU 1- Septic shock, with group A strep bacteremia. improved. off pressors now - cont CTX and clinda - follow repeat blood cx - IVF and po hydration . base line sBP in 90s per patient and 2- Replete hypokalemia and hypomagnesemia . 3- h/o Asthma, not active Tx to floor
[2018-07-24] MEDS: CEFTRIAXONE 2 GM in DEXTROSE 5%-WATER 100 ML IVPB SCH (09:36)
[2018-07-24] MEDS: SODIUM CHLORIDE 1,000 ML IV SCH (14:22)
[2018-07-24] MEDS: ENOXAPARIN NA (PORCINE) 40 MG/0.4 ML DISP.SYRIN SQ SCH (16:27)
[2018-07-24] MEDS: CHLORHEXIDINE GLUCONATE 4% CLEANSER FOR DECOLONIZATION TP SCH (21:36)
[2018-07-25] MEDS: CLINDAMYCIN 600MG PREMIX IVPB 600 MG/50 ML BAG IVPB SCH ×3 (01:48→17:43)
[2018-07-25] MEDS: ACETAMINOPHEN 1000 MG/100 ML VIAL (NON FORMULARY) IVPB PRN (04:10)
[2018-07-25 06:55] LABS: BASO % 0.2 % (0-2.0); EOS % 0.2 % (0-4.5); HEMATOCRIT 21.9 % (32.4-45.2); HEMOGLOBIN 7.8 GM/dL (10.7-15.3); LYMPH % 15.1 % (8-40); MCH 31.8 pg (25.7-33.7); MCHC 35.5 g/dl (32.0-36.0); MEAN CELL VOLUME 89.6 fl (80-96); MONO % 4.4 % (3.8-10.2); NEUT % 80.1 % (42.8-82.8); PLATELET COUNT 149 K/MM3 (134-434); RBC 2.44 M/mm3 (3.60-5.2); RDW 14.1 % (11.6-15.6); WHITE BLOOD COUNT 3.4 K/mm3 (4.0-10.0)
[2018-07-25 07:29] LABS: ANION GAP 8 MMOL/L (8-16); BLOOD UREA NITROGEN 7 mg/dL (7-18); CALCIUM 7.5 mg/dL (8.5-10.1); CHLORIDE 109 mmol/L (98-107); CO2 21 mmol/L (21-32); CREATININE 0.5 mg/dL (0.55-1.3); GLUCOSE,RANDOM 86 mg/dL (74-106); MAGNESIUM 1.7 mg/dL (1.8-2.4); PHOSPHOROUS 4.8 mg/dL (2.5-4.9); POTASSIUM 3.4 mmol/L (3.5-5.1); SODIUM 138 mmol/L (136-145)
[2018-07-25] MEDS ORDERED: POTASSIUM CHLORIDE TABS 20 MEQ TABLET.ER (FP) PO ONE (07:38)
[2018-07-25] MEDS ORDERED: MAGNESIUM SULF 50% (8.12 MEQ/2 ML-1 GM VIAL) IVPB ONE (07:43)
[2018-07-25] MEDS ORDERED: DEXTROSE 5%-WATER 100 ML IVPB ONE (08:07)
[2018-07-25] MEDS: CEFTRIAXONE 2 GM in DEXTROSE 5%-WATER 100 ML IVPB SCH (09:17)
[2018-07-25] MEDS: MUPIROCIN 2% TOPICAL OINTMENT FOR DECOLONIZATION NS SCH ×2 (09:18→21:38)
[2018-07-25] MEDS: ENOXAPARIN NA (PORCINE) 40 MG/0.4 ML DISP.SYRIN SQ SCH (09:18)
--- NOTE | 2018-07-25 09:53 | PN ---
Progress Note (short form) - Note Progress Note: Subjective: depressed. fever last night . No abd pain. no diarrhea. no SOB Objective: Vital Signs: Last Vital Signs Temp Pulse Resp BP Pulse Ox 99.1 F 74 18 93/64 100 07/25/18 03:00 07/25/18 07:00 07/25/18 07:00 07/25/18 07:00 07/24/18 21:00 Laboratory Results - last 24 hr 07/25/18 07/25/18 05:30 05:30 WBC 3.4 L RBC 2.44 L Hgb 7.8 L Hct 21.9 L MCV 89.6 MCH 31.8 MCHC 35.5 RDW 14.1 Plt Count 149 MPV 8.0 Absolute Neuts (auto) 2.7 Neutrophils % 80.1 Lymphocytes % 15.1 Monocytes % 4.4 Eosinophils % 0.2 Basophils % 0.2 Nucleated RBC % 0 Sodium 138 Potassium 3.4 L Chloride 109 H Carbon Dioxide 21 Anion Gap 8 BUN 7 Creatinine 0.5 L Creat Clearance w eGFR 148.00 Random Glucose 86 Calcium 7.5 L Phosphorus 4.8 Magnesium 1.7 L Physical Exam: NAd, AAOx3. MMM Cv: RRR. no MRG Lungs: CTAB Abd: soft, ND, TTP in bilateral lower quadrants and suprapubic area. no rebound tenderness. Ext : no edema or erythema ASSESSMENT AND PLAN: 27 y/o lady with h/o asthma , s/p vaginal delivery on 07/21 who developed septic shock omn 07/22 and was admitted to ICU 1- Septic shock, resolved. 2- group A strep bacteremia. improved.repeat cx neg . U cx noted - cont CTX and clinda - follow repeat blood cx - po hydration . dc IVF ( cough) - echo with no vegetations - look for other source of her fever : US of LE s, and cxray - if fever persists for few more days, then might consider KHRIS 2- Acute blood loss anemia: will transfuse for HB < 7 3- Replete hypokalemia and hypomagnesemia . 4- h/o Asthma, not active DVT px: Lovenox Visit type - Emergency Visit Emergency Visit: Yes ED Registration Date: 07/21/18 Care time: The patient presented to the Emergency Department on the above date and was hospitalized for further evaluation of their emergent condition. - New Patient This patient is new to me today: No - Critical Care Critical Care patient: No
--- NOTE | 2018-07-25 10:06 | PN ---
Progress Note (short form) - Note Progress Note: feels well episode of fever with chills last night eating well no diarrhea Vital Signs Period Temp Pulse Resp BP Sys/Oseguera Pulse Ox Last 24 Hr 98.1 F-102.6 F 74-122 16-21 93-113/54-76 100 cor-rrr llungs clear abd soft,nt ext no edema no mastitis no rash CBC, BMP 07/25/18 05:30 07/25/18 05:30 Microbiology 07/23/18 09:20 Blood - Peripheral Venous Blood Culture - Preliminary NO GROWTH OBTAINED AFTER 48 HOURS, INCUBATION TO CONTINUE FOR 3 DAYS. 07/23/18 09:45 Blood - Peripheral Venous Blood Culture - Preliminary NO GROWTH OBTAINED AFTER 48 HOURS, INCUBATION TO CONTINUE FOR 3 DAYS. 07/24/18 05:45 Blood - Peripheral Venous Blood Culture - Preliminary NO GROWTH OBTAINED AFTER 24 HOURS, INCUBATION TO CONTINUE FOR 4 DAYS. 07/24/18 05:30 Blood - Peripheral Venous Blood Culture - Preliminary NO GROWTH OBTAINED AFTER 24 HOURS, INCUBATION TO CONTINUE FOR 4 DAYS. 07/22/18 13:53 Blood - Peripheral Venous Blood Culture - Final Streptococcus Pyogenes Grp A 07/22/18 14:35 Urine - Urine Clean Catch Urine Culture - Preliminary Streptococcus Pyogenes Grp A 07/22/18 15:25 Throat Throat Culture - Final NO BETA HEMOLYTIC STREPTOCOCCI ISOLATED 07/22/18 13:59 Blood - Peripheral Venous Blood Culture - Preliminary Streptococcus Pyogenes Grp A trans thoracic echo- normal a/p sepsis group a strep bacteremia 07/21 pen allergy continue clindamycin and ceftriaxone repeat blood cultures pending clinically improving agree with duplex of legs r/o DVT please reculture if she has further fever/chills d/w hospitalist
[2018-07-25] MEDS ORDERED: ACETAMINOPHEN 1000 MG/100 ML VIAL (NON FORMULARY) IVPB ONE (15:12)
--- NOTE | 2018-07-25 17:10 | PN ---
Progress Note (short form) - Note Progress Note: had chills and fever last night, no vaginal bleeding or odor , no calf pain Last Vital Signs Temp Pulse Resp BP Pulse Ox 101.1 F H 114 H 19 113/71 100 07/25/18 15:00 07/25/18 16:30 07/25/18 16:30 07/25/18 16:30 07/25/18 09:00 Last Vital Signs Temp Pulse Resp BP Pulse Ox 101.1 F H 114 H 19 113/71 100 07/25/18 15:00 07/25/18 16:30 07/25/18 16:30 07/25/18 16:30 07/25/18 09:00 CBC, BMP 07/25/18 05:30 07/25/18 05:30 abdomen soft, uterus firm, non tender lochia mild , no odor no calf tenderness plan cont iv antibiotics repeat blood culture pending
[2018-07-25 20:09] LABS: HEMATOCRIT 25.4 % (32.4-45.2); HEMOGLOBIN 8.8 GM/dL (10.7-15.3); MCH 31.3 pg (25.7-33.7); MCHC 34.4 g/dl (32.0-36.0); MEAN CELL VOLUME 90.9 fl (80-96); MEAN PLT VOLUME 8.1 fl (7.5-11.1); PLATELET COUNT 169 K/MM3 (134-434); RBC 2.79 M/mm3 (3.60-5.2); RDW 13.9 % (11.6-15.6); WHITE BLOOD COUNT 4.2 K/mm3 (4.0-10.0)
[2018-07-25] MEDS: CHLORHEXIDINE GLUCONATE 4% CLEANSER FOR DECOLONIZATION TP SCH (21:38)
[2018-07-26] MEDS: CLINDAMYCIN 600MG PREMIX IVPB 600 MG/50 ML BAG IVPB SCH ×3 (02:45→17:19)
[2018-07-26 06:57] LABS: BASO % 0.5 % (0-2.0); EOS % 0.7 % (0-4.5); HEMATOCRIT 23.5 % (32.4-45.2); HEMOGLOBIN 8.3 GM/dL (10.7-15.3); LYMPH % 26.1 % (8-40); MCH 31.4 pg (25.7-33.7); MCHC 35.4 g/dl (32.0-36.0); MEAN CELL VOLUME 88.7 fl (80-96); MEAN PLT VOLUME 8.3 fl (7.5-11.1); MONO % 8.1 % (3.8-10.2); NEUT % 64.6 % (42.8-82.8); PLATELET COUNT 173 K/MM3 (134-434); RBC 2.65 M/mm3 (3.60-5.2); WHITE BLOOD COUNT 4.6 K/mm3 (4.0-10.0)
[2018-07-26 07:17] LABS: ANION GAP 9 MMOL/L (8-16); BLOOD UREA NITROGEN 4 mg/dL (7-18); CALCIUM 7.4 mg/dL (8.5-10.1); CHLORIDE 107 mmol/L (98-107); CO2 24 mmol/L (21-32); CREATININE 0.5 mg/dL (0.55-1.3); GLUCOSE,RANDOM 76 mg/dL (74-106); POTASSIUM 3.9 mmol/L (3.5-5.1); SODIUM 140 mmol/L (136-145)
[2018-07-26] MEDS ORDERED: BENZOCAINE 28 GM HEMORRHOIDAL OINTMENT TP PRN (08:14)
[2018-07-26] MEDS ORDERED: WITCH HAZEL 50% (TUCKS) 40 PAD/JAR PAD TP PRN (08:14)
[2018-07-26] MEDS ORDERED: SENNOSIDES/DOCUSATE COMBO (SENNA PLUS) TABLET (UD) PO PRN (08:14)
[2018-07-26] MEDS ORDERED: BISACODYL 10 MG SUPP.RECT RC PRN (08:14)
[2018-07-26] MEDS ORDERED: BENZOCAINE 20% 57 GM BOTTLE TP PRN (08:14)
[2018-07-26] MEDS ORDERED: DEXTROSE 5%-WATER 100 ML IVPB ONE (09:45)
--- NOTE | 2018-07-26 10:18 | PN ---
Progress Note, Physician History of Present Illness: OOB IN CHAIR NO COMLAINTS OFFERRED NOW WITH PERSISTANT FEVER REPEAT BC HAVE BEEN NEGATIVE DOPPLERS NO DVT AMBULATORY ON UNIT TOLERATING CEPHALOSPORIN - Current Medication List Current Medications: Active Medications Benzocaine (Americaine 20% [place] -) 1 spray TP PRN PRN PRN Reason: PAIN Benzocaine (Americaine Ointment -) 1 applic TP PRN PRN PRN Reason: PAIN Bisacodyl (Dulcolax Suppository -) 10 mg RC PRN PRN PRN Reason: CONSTIPATION Chlorhexidine Gluconate (Hibiclens For Decolonization -) 1 applic TP HS YONAS Enoxaparin Sodium (Lovenox -) 40 mg SQ DAILY YONAS Last Admin: 07/25/18 09:18 Dose: 40 mg Ceftriaxone Sodium 2 gm/ (Dextrose) 100 mls @ 200 mls/hr IVPB DAILY YONAS; Protocol Clindamycin Phosphate (Cleocin 600 Mg Premix Ivpb -) 600 mg in 50 mls @ 100 mls /hr IVPB Q8H-IV YONAS; Protocol Mupirocin (Bactroban Ointment (For Decolonization) -) 1 applic NS BID YONAS Stop: 07/27/18 21:59 Senna/Docusate Sodium (Pericolace -) 2 tablet PO HS PRN PRN Reason: CONSTIPATION Witch Aline/Glycerin (Tucks Pads -) 1 pad TP PRN PRN PRN Reason: PAIN - Objective Vital Signs: Vital Signs Temperature 99.9 F H 07/26/18 06:00 Pulse Rate 104 H 07/26/18 09:00 Respiratory Rate 24 H 07/26/18 09:00 Blood Pressure 109/67 07/26/18 09:00 O2 Sat by Pulse Oximetry (%) 98 07/26/18 09:00 Constitutional: Yes: No Distress Eyes: Yes: Conjunctiva Clear Cardiovascular: Yes: Regular Rate and Rhythm, S1, S2 Respiratory: Yes: CTA Bilaterally Gastrointestinal: Yes: Normal Bowel Sounds, Soft. No: Tenderness Extremities: No: Calf Tenderness Edema: Yes Edema: LLE: 1+, RLE: 1+ Labs: CBC, BMP 07/26/18 05:30 07/26/18 05:30 INR, PTT INR 1.14 (0.83-1.09) H 07/23/18 05:30 Assessment/Plan GRP A STREP BACTEREMIA/ SEPSIS SEPTIC SHOCK IMPROVED ? ENDOMETRITIS POST PCN ALLERGY CONTINUE CEFTRIAXONE / CLINDAMYCIN IN LIGHT OF PERSISTANT FEVER, ADVISE CT C/A/P WITH CONTRAST TO R/O PARAPNEUMONIC EFFUSION (? EMPYEMA) PELVIC ABSCESS, PELVIC VEIN THROMBOSIS
[2018-07-26] MEDS: CEFTRIAXONE 2 GM in DEXTROSE 5%-WATER 100 ML IVPB SCH (10:20)
[2018-07-26] MEDS: ENOXAPARIN NA (PORCINE) 40 MG/0.4 ML DISP.SYRIN SQ SCH (10:21)
[2018-07-26 12:31] LABS: PLATELET ESTIMATE ADEQUATE
--- NOTE | 2018-07-26 13:28 | PN ---
Teaching Attending Note Name of Resident: Gabriel Sheridan ATTENDING PHYSICIAN STATEMENT I saw and evaluated the patient. I reviewed the resident's note and discussed the case with the resident. I agree with the resident's findings and plan as documented. SUBJECTIVE: Fever last night. No Abd pain. spotting, no dysuria, no hematuria. no CP or cough ,or back pain OBJECTIVE: NAd, AAOx3. MMM Cv: RRR. no MRG Lungs: CTAB Abd: soft, ND, NT. NL BS Ext : no edema or erythema ASSESSMENT AND PLAN: 27 y/o lady with h/o asthma , s/p vaginal delivery on 07/21 who developed septic shock omn 07/22 and was admitted to ICU 1- Septic shock, resolved. 2- Group A strep bacteremia. with continued fever . No DVT on US or infiltrate on Cxray - cont CTX and clinda - D/W ID: CT of chest /abd/pelvis - if no abscess or other source, will consider KHRIS. 2- Acute blood loss anemia: will transfuse for HB < 7 3- h/o Asthma, not active DVT px: Lovenox
--- NOTE | 2018-07-26 13:30 | PN ---
Physical Exam: SUBJECTIVE: Patient seen and examined this AM. She states she is feeling much better and does not have any complaints other than some swelling in her legs. OBJECTIVE: Vital Signs Period Temp Pulse Resp BP Sys/Oseguera Pulse Ox Last 24 Hr 97.8 F-101.4 F 68-114 18-24 109-120/67-93 98-100 GEN: A&O, no acute distress HEENT: PERRL, moist mucus membranes, no pharygeal erythema or exudate HEART: regular rate and rhythm, no murmurs noted LUNGS: CTA b/l, no wheezes or rhonchi noted ABDOMEN: Soft, nontender, normoactive bowel sounds, abdominal girth appropriate for recent delivery EXTREMITIES: 1+ nonpitting edema in b/l LE. no calf tenderness or erythema Laboratory Results - last 24 hr 07/25/18 07/26/18 07/26/18 19:58 05:30 05:30 WBC 4.2 4.6 RBC 2.79 L 2.65 L Hgb 8.8 L 8.3 L Hct 25.4 L D 23.5 L MCV 90.9 88.7 MCH 31.3 31.4 MCHC 34.4 35.4 RDW 13.9 14.0 Plt Count 169 173 MPV 8.1 8.3 Absolute Neuts (auto) 2.9 Total Counted 100 Neutrophils % 64.6 Neutrophils % (Manual) 62.0 Band Neutrophils % 5.0 Lymphocytes % 26.1 D Lymphocytes % (Manual) 24.0 D Monocytes % 8.1 D Monocytes % (Manual) 6 D Eosinophils % 0.7 D Eosinophils % (Manual) 2.0 D Basophils % 0.5 Nucleated RBC % 0 Platelet Estimate Adequate Sodium 140 Potassium 3.9 Chloride 107 Carbon Dioxide 24 Anion Gap 9 BUN 4 L Creatinine 0.5 L Creat Clearance w eGFR 148.00 Random Glucose 76 Calcium 7.4 L Active Medications Generic Name Dose Route Start Last Admin Trade Name Freq PRN Reason Stop Dose Admin Benzocaine 1 spray 07/26/18 08:14 Americaine 20% [place] - TP PRN PRN PAIN Benzocaine 1 applic 07/26/18 08:14 Americaine Ointment - TP PRN PRN PAIN Bisacodyl 10 mg 07/26/18 08:14 Dulcolax Suppository - RC PRN PRN CONSTIPATION Chlorhexidine Gluconate 1 applic 07/26/18 22:00 Hibiclens For Decolonization - TP HS YONAS Enoxaparin Sodium 40 mg 07/24/18 16:15 07/26/18 10:21 Lovenox - SQ 40 mg DAILY YONAS Administration Ceftriaxone Sodium 2 gm/ 100 mls @ 200 mls/hr 07/26/18 10:00 07/26/18 10:20 Dextrose IVPB 200 mls/hr DAILY YONAS Administration Protocol Clindamycin Phosphate 600 mg in 50 mls @ 100 mls/hr 07/26/18 10:00 07/26/18 10:19 Cleocin 600 Mg Premix Ivpb - IVPB 100 mls/hr Q8H-IV YONAS Administration Protocol Mupirocin 1 applic 07/26/18 10:00 Bactroban Ointment (For Decolonization) - NS 07/27/18 21:59 BID YONAS Senna/Docusate Sodium 2 tablet 07/26/18 08:14 Pericolace - PO HS PRN CONSTIPATION Witch Aline/Glycerin 1 pad 07/26/18 08:14 Tucks Pads - TP PRN PRN PAIN ASSESSMENT/PLAN: Patient is a 27 year old female, ([id number]), was admitted for spontaneous vaginal delivery, found to have septic shock secondary to Group A strep bacteremia. Septic Shock 2/2 Group A Strep Bacteremia -Rocephin/Clinda day 4 (Abx day 5) -ID consult appreciated -Still with fevers, consider pelvic abscess vs lung empyema less likely vs cardiac septic thrombus vs spinal abscess -Case discussed with ID who recommends CT Chest/Abdomen/Pelvis with contrast which is now pending -Repeat cultures pending -Consider MRI spine vs KHRIS if fevers continue S/P Vaginal Delivery -Denies any pain -physical exam findings and complaints consistent with time frame of vaginal delivery Asthma -stable, not requiring albuterol FEN -None -monitor and replete (K improving) -Regular diet DVT Prophylaxis -Lovenox 40 mg SQ Daily Disposition Continue to monitor in hospital setting for IV Abx Visit type - Emergency Visit Emergency Visit: Yes ED Registration Date: 07/21/18 Care time: The patient presented to the Emergency Department on the above date and was hospitalized for further evaluation of their emergent condition. - New Patient This patient is new to me today: Yes Date on this admission: 07/26/18 - Critical Care Critical Care patient: No
[2018-07-26] MEDS ORDERED: PT OWN MED DRAWER 7, Y5N ONE (13:31)
[2018-07-26] MEDS: MUPIROCIN 2% TOPICAL OINTMENT FOR DECOLONIZATION NS SCH ×2 (13:32→22:00)
[2018-07-26 17:46] LABS: EPI CELLS 0.5 /HPF (0-5/HPF); PH,URINE 7.5 (5.0-8.0); URINE APPEARANCE CLEAR; URINE BACTERIA 0.8 /hpf (NEGATIVE); URINE BILIRUBIN NEGATIVE (NEGATIVE); URINE CASTS 0 /lpf (0-8); URINE COLOR YELLOW; URINE GLUCOSE (UA) NEGATIVE (NEGATIVE); URINE KETONE NEGATIVE (NEGATIVE); URINE LEUK ESTERASE TRACE (NEGATIVE); URINE NITRITE NEGATIVE (NEGATIVE); URINE PROTEIN NEGATIVE (NEGATIVE); URINE RBC 3 /hpf (0-4); URINE UROBILINOGEN 0.2 mg/dL (0.2-1.0); URINE WBC 2 /hpf (0-5)
[2018-07-26] MEDS ORDERED: CHLORHEXIDINE GLUCONATE 4% CLEANSER FOR DECOLONIZATION TP SCH (22:00)
[2018-07-27] MEDS: CLINDAMYCIN 600MG PREMIX IVPB 600 MG/50 ML BAG IVPB SCH ×3 (01:21→17:33)
[2018-07-27 06:49] LABS: BASO % 0.4 % (0-2.0); EOS % 2.1 % (0-4.5); HEMATOCRIT 23.4 % (32.4-45.2); HEMOGLOBIN 8.2 GM/dL (10.7-15.3); LYMPH % 33.1 % (8-40); MCH 31.4 pg (25.7-33.7); MCHC 34.9 g/dl (32.0-36.0); MEAN CELL VOLUME 89.9 fl (80-96); MEAN PLT VOLUME 8.1 fl (7.5-11.1); NEUT % 52.4 % (42.8-82.8); PLATELET COUNT 197 K/MM3 (134-434); RDW 13.7 % (11.6-15.6); WHITE BLOOD COUNT 5.2 K/mm3 (4.0-10.0)
[2018-07-27 07:09] LABS: ANION GAP 6 MMOL/L (8-16); BLOOD UREA NITROGEN 6 mg/dL (7-18); CALCIUM 7.8 mg/dL (8.5-10.1); CHLORIDE 107 mmol/L (98-107); CO2 26 mmol/L (21-32); CREATININE 0.4 mg/dL (0.55-1.3); GLUCOSE,RANDOM 73 mg/dL (74-106); MAGNESIUM 2.3 mg/dL (1.8-2.4); PHOSPHOROUS 4.6 mg/dL (2.5-4.9); POTASSIUM 3.9 mmol/L (3.5-5.1); SODIUM 139 mmol/L (136-145)
[2018-07-27] MEDS ORDERED: DEXTROSE 5%-WATER 100 ML IVPB ONE (09:10)
[2018-07-27] MEDS: CEFTRIAXONE 2 GM in DEXTROSE 5%-WATER 100 ML IVPB SCH (09:20)
[2018-07-27] MEDS: ENOXAPARIN NA (PORCINE) 40 MG/0.4 ML DISP.SYRIN SQ SCH (09:20)
[2018-07-27] MEDS: MUPIROCIN 2% TOPICAL OINTMENT FOR DECOLONIZATION NS SCH (09:59)
[2018-07-27 12:06] LABS: ANISOCYTOSIS 1+; MACROCYTOSIS 0; PLATELET ESTIMATE NORMAL
--- NOTE | 2018-07-27 12:25 | PN ---
Physical Exam: SUBJECTIVE: Patient seen and examined this AM. She states she is feeling much better overall and denies any fevers/chills overnight. She states that she does have a mild nonproductive cough. OBJECTIVE: Vital Signs Period Temp Pulse Resp BP Sys/Oseguera Pulse Ox Last 24 Hr 97.7 F-98.9 F 53-88 15-22 93-110/54-80 GEN: A&O, no acute distress HEENT: PERRL, moist mucus membranes, no pharygeal erythema or exudate HEART: regular rate and rhythm, no murmurs noted LUNGS: CTA b/l, no wheezes or rhonchi noted ABDOMEN: Soft, nontender, normoactive bowel sounds, abdominal girth appropriate for recent delivery EXTREMITIES: 1+ nonpitting edema in b/l LE improving. no calf tenderness or erythema Laboratory Results - last 24 hr 07/26/18 07/26/18 07/27/18 05:30 15:30 05:30 WBC 5.2 RBC 2.60 L Hgb 8.2 L Hct 23.4 L MCV 89.9 MCH 31.4 MCHC 34.9 RDW 13.7 Plt Count 197 MPV 8.1 Absolute Neuts (auto) 2.7 Total Counted 100 Neutrophils % 52.4 Neutrophils % (Manual) 62.0 Band Neutrophils % 5.0 Lymphocytes % 33.1 D Lymphocytes % (Manual) 24.0 D Monocytes % 12.0 H Monocytes % (Manual) 6 D Eosinophils % 2.1 D Eosinophils % (Manual) 2.0 D Basophils % 0.4 Nucleated RBC % 0 Platelet Estimate Adequate Sodium Potassium Chloride Carbon Dioxide Anion Gap BUN Creatinine Creat Clearance w eGFR Random Glucose Calcium Phosphorus Magnesium Urine Color Yellow Urine Appearance Clear Urine pH 7.5 D Ur Specific [place] 1.007 L Urine Protein Negative Urine Glucose (UA) Negative Urine Ketones Negative Urine Blood Trace Urine Nitrite Negative Urine Bilirubin Negative Urine Urobilinogen 0.2 Ur Leukocyte Esterase Trace Urine WBC (Auto) 2 Urine RBC (Auto) 3 Urine Casts (Auto) 0 U Epithel Cells (Auto) 0.5 Urine Bacteria (Auto) 0.8 07/27/18 05:30 WBC RBC Hgb Hct MCV MCH MCHC RDW Plt Count MPV Absolute Neuts (auto) Total Counted Neutrophils % Neutrophils % (Manual) Band Neutrophils % Lymphocytes % Lymphocytes % (Manual) Monocytes % Monocytes % (Manual) Eosinophils % Eosinophils % (Manual) Basophils % Nucleated RBC % Platelet Estimate Sodium 139 Potassium 3.9 Chloride 107 Carbon Dioxide 26 Anion Gap 6 L BUN 6 L Creatinine 0.4 L Creat Clearance w eGFR 191.47 Random Glucose 73 L Calcium 7.8 L Phosphorus 4.6 Magnesium 2.3 Urine Color Urine Appearance Urine pH Ur Specific [place] Urine Protein Urine Glucose (UA) Urine Ketones Urine Blood Urine Nitrite Urine Bilirubin Urine Urobilinogen Ur Leukocyte Esterase Urine WBC (Auto) Urine RBC (Auto) Urine Casts (Auto) U Epithel Cells (Auto) Urine Bacteria (Auto) Active Medications Generic Name Dose Route Start Last Admin Trade Name Freq PRN Reason Stop Dose Admin Benzocaine 1 spray 07/26/18 08:14 Americ[place] 20% [place] - TP PRN PRN PAIN Benzocaine 1 applic 07/26/18 08:14 [place] Ointment - TP PRN PRN PAIN Bisacodyl 10 mg 07/26/18 08:14 Dulcolax Suppository - RC PRN PRN CONSTIPATION Chlorhexidine Gluconate 1 applic 07/26/18 22:00 07/26/18 22:00 Hibiclens For Decolonization - TP Not Given HS YONAS Enoxaparin Sodium 40 mg 07/24/18 16:15 07/27/18 09:20 Lovenox - SQ 40 mg DAILY YONAS Administration Ceftriaxone Sodium 2 gm/ 100 mls @ 200 mls/hr 07/26/18 10:00 07/27/18 09:20 Dextrose IVPB 200 mls/hr DAILY YONAS Administration Protocol Clindamycin Phosphate 600 mg in 50 mls @ 100 mls/hr 07/26/18 10:00 07/27/18 09:20 Cleocin 600 Mg Premix Ivpb - IVPB 100 mls/hr Q8H-IV YONAS Administration Protocol Mupirocin 1 applic 07/26/18 10:00 07/27/18 09:59 Bactroban Ointment (For Decolonization) - NS 07/27/18 21:59 1 applic BID YONAS Administration Senna/Docusate Sodium 2 tablet 07/26/18 08:14 Pericolace - PO HS PRN CONSTIPATION Witch Aline/Glycerin 1 pad 07/26/18 08:14 Tucks Pads - TP PRN PRN PAIN ASSESSMENT/PLAN: Patient is a 27 year old female, ([id number]), was admitted for spontaneous vaginal delivery, found to have septic shock secondary to Group A strep bacteremia. Septic Shock 2/2 Group A Strep Bacteremia - resolved -Rocephin/Clinda day 5 (Abx day 6) -ID consult appreciated -No fevers overnight -CT Chest/Abdomen/Pelvis with small b/l pleural effusions, small area possibly consistent with pneumonia, (though unlikely clinically) -Repeat cultures still with no growth -Consider MRI spine vs KHRIS if fevers continue S/P Vaginal Delivery -Denies any pain -physical exam findings and complaints consistent with time frame of vaginal delivery Asthma -stable, not requiring albuterol FEN -None -monitor and replete -Regular diet DVT Prophylaxis -Lovenox 40 mg SQ Daily Disposition Transfer to Med/Surg Visit type - Emergency Visit Emergency Visit: Yes ED Registration Date: 07/21/18 Care time: The patient presented to the Emergency Department on the above date and was hospitalized for further evaluation of their emergent condition. - New Patient This patient is new to me today: No - Critical Care Critical Care patient: No
--- NOTE | 2018-07-27 17:26 | PN ---
Teaching Attending Note Name of Resident: Tino Cisse ATTENDING PHYSICIAN STATEMENT I saw and evaluated the patient. I reviewed the resident's note and discussed the case with the resident. I agree with the resident's findings and plan as documented. SUBJECTIVE: No fever or chills. feels better . no CAMPOS . no SOB , no cough. no abd pain , mild spotting . No back pain OBJECTIVE: NAD, AAOx3. MMM Cv: RRR. no MRG Lungs: CTAB Abd: soft, ND, NT. NL BS Ext : no edema or erythema ASSESSMENT AND PLAN: 27 y/o lady with h/o asthma , s/p vaginal delivery on 07/21 who developed septic shock omn 07/22 and was admitted to ICU 1- Septic shock, resolved. 2- Group A strep bacteremia. fever resolved CT scans reviewed. doubt PNA , she is already on Abx and do not suspect resistant organisms. CT abd read as enlarged appendix, but patient had appendectomy in 2017 ( surgical report reviewed, done by Dr. Parker ) - Monitor on current Abx unless recommended otherwise by ID - follow cx 2- Acute blood loss anemia: will transfuse for HB < 7 . stabl eHB 3- h/o Asthma, not active DVT px: Lovenox transfer to med surg. no need for tele any more
--- NOTE | 2018-07-27 17:47 | PN ---
Progress Note, Physician History of Present Illness: OOB IN CHAIR NO COMPLAINTS OFFERRED FEVER RESOLVED REPEAT BC HAVE BEEN NEGATIVE CT FINDINGS NOTED AMBULATORY ON UNIT TOLERATING CEPHALOSPORIN - Current Medication List Current Medications: Active Medications Benzocaine (Americaine 20% [place] -) 1 spray TP PRN PRN PRN Reason: PAIN Benzocaine (Americaine Ointment -) 1 applic TP PRN PRN PRN Reason: PAIN Bisacodyl (Dulcolax Suppository -) 10 mg RC PRN PRN PRN Reason: CONSTIPATION Chlorhexidine Gluconate (Hibiclens For Decolonization -) 1 applic TP HS YONAS Last Admin: 07/26/18 22:00 Dose: Not Given Enoxaparin Sodium (Lovenox -) 40 mg SQ DAILY YONAS Last Admin: 07/27/18 09:20 Dose: 40 mg Ceftriaxone Sodium 2 gm/ (Dextrose) 100 mls @ 200 mls/hr IVPB DAILY YONAS; Protocol Last Admin: 07/27/18 09:20 Dose: 200 mls/hr Clindamycin Phosphate (Cleocin 600 Mg Premix Ivpb -) 600 mg in 50 mls @ 100 mls /hr IVPB Q8H-IV YONAS; Protocol Last Admin: 07/27/18 17:33 Dose: 100 mls/hr Mupirocin (Bactroban Ointment (For Decolonization) -) 1 applic NS BID YONAS Stop: 07/27/18 21:59 Last Admin: 07/27/18 09:59 Dose: 1 applic Senna/Docusate Sodium (Pericolace -) 2 tablet PO HS PRN PRN Reason: CONSTIPATION Witch Aline/Glycerin (Tucks Pads -) 1 pad TP PRN PRN PRN Reason: PAIN - Objective Vital Signs: Vital Signs Temperature 97.9 F 07/27/18 14:00 Pulse Rate 73 07/27/18 14:00 Respiratory Rate 18 07/27/18 10:00 Blood Pressure 109/72 07/27/18 14:00 O2 Sat by Pulse Oximetry (%) 98 07/26/18 09:00 Constitutional: Yes: No Distress Eyes: Yes: Conjunctiva Clear Cardiovascular: Yes: Regular Rate and Rhythm, S1, S2 Respiratory: Yes: CTA Bilaterally Gastrointestinal: Yes: Normal Bowel Sounds, Soft Edema: Yes Labs: CBC, BMP 07/27/18 05:30 07/27/18 05:30 INR, PTT INR 1.14 (0.83-1.09) H 07/23/18 05:30 Assessment/Plan GRP A STREP BACTEREMIA/ SEPSIS SEPTIC SHOCK IMPROVED ? ENDOMETRITIS POST PCN ALLERGY CONTINUE CEFTRIAXONE / CLINDAMYCIN
[2018-07-27] MEDS ORDERED: BISACODYL 10 MG SUPP.RECT RC PRN (18:34)
[2018-07-27] MEDS ORDERED: BENZOCAINE 20% 57 GM BOTTLE TP PRN (18:34)
[2018-07-27] MEDS ORDERED: WITCH HAZEL 50% (TUCKS) 40 PAD/JAR PAD TP PRN (18:34)
[2018-07-27] MEDS ORDERED: BENZOCAINE 28 GM HEMORRHOIDAL OINTMENT TP PRN (18:34)
[2018-07-27] MEDS ORDERED: SENNOSIDES/DOCUSATE COMBO (SENNA PLUS) TABLET (UD) PO PRN (22:00)
[2018-07-28] MEDS: CLINDAMYCIN 600MG PREMIX IVPB 600 MG/50 ML BAG IVPB SCH ×2 (02:39→10:10)
--- NOTE | 2018-07-28 07:14 | PN ---
Physical Exam: SUBJECTIVE: Patient seen and examined this AM. States she is doing well with no complaints. She is very glad to be back with her baby as well. OBJECTIVE: Vital Signs Period Temp Pulse Resp BP Sys/Osegu[place] Pulse Ox Last 24 Hr 97.7 F-98.2 F 52-73 17-20 101-113/68-84 GEN: A&O, no acute distress HEENT: PERRL, moist mucus membranes, no pharygeal erythema or exudate HEART: regular rate and rhythm, no murmurs noted LUNGS: CTA b/l, no wheezes or rhonchi noted ABDOMEN: Soft, nontender, normoactive bowel sounds, abdominal girth appropriate for recent delivery EXTREMITIES: no calf tenderness or erythema, no peripheral edema Laboratory Results - last 24 hr 07/27/18 05:30 Neutrophils % (Manual) 43.6 Band Neutrophils % 3.0 Lymphocytes % (Manual) 37.6 D Monocytes % (Manual) 8 Eosinophils % (Manual) 3.9 D Basophils % (Manual) 0.0 Myelocytes % (Man) 2 D Promyelocytes % (Man) 0 Blast Cells % (Manual) 0 Metamyelocytes 1 D Hypochromia 0 Platelet Estimate Normal Polychromasia 0 Poikilocytosis 0 Anisocytosis 1+ Microcytosis 1+ Macrocytosis 0 Active Medications Generic Name Dose Route Start Last Admin Trade Name Freq PRN Reason Stop Dose Admin Benzocaine 1 spray 07/27/18 18:34 Americaine 20% [place] - TP PRN PRN PAIN Benzocaine 1 applic 07/27/18 18:34 Americaine Ointment - TP PRN PRN PAIN Bisacodyl 10 mg 07/27/18 18:34 Dulcolax Suppository - RC PRN PRN CONSTIPATION Enoxaparin Sodium 40 mg 07/28/18 10:00 Lovenox - SQ DAILY YONAS Ceftriaxone Sodium 2 gm/ 100 mls @ 200 mls/hr 07/28/18 10:00 Dextrose IVPB DAILY YONAS Protocol Clindamycin Phosphate 600 mg in 50 mls @ 100 mls/hr 07/28/18 02:00 07/28/18 02:39 Cleocin 600 Mg Premix Ivpb - IVPB 100 mls/hr Q8H-IV YONAS Administration Protocol Senna/Docusate Sodium 2 tablet 07/27/18 22:00 Pericolace - PO HS PRN CONSTIPATION Witch Aline/Glycerin 1 pad 07/27/18 18:34 Tucks Pads - TP PRN PRN PAIN ASSESSMENT/PLAN: Patient is a 27 year old female, ([id number]), was admitted for spontaneous vaginal delivery, found to have septic shock secondary to Group A strep bacteremia. Septic Shock 2/2 Group A Strep Bacteremia - resolved -Rocephin/Clinda day 6 (Abx day 7) -ID consult appreciated -No fevers overnight -CT Chest/Abdomen/Pelvis with small b/l pleural effusions, small area possibly consistent with pneumonia, (though unlikely clinically) -Repeat cultures still with no growth -Will discuss with ID about length of abx IV vs PO -Signing off from a medicine standpoint S/P Vaginal Delivery -Denies any pain -physical exam findings and complaints consistent with time frame of vaginal delivery Asthma -stable, not requiring albuterol FEN -None -monitor and replete -Regular diet DVT Prophylaxis -Lovenox 40 mg SQ Daily Disposition Sign off from a medicine standpoint. Please re-consult as needed Visit type - Emergency Visit Emergency Visit: Yes ED Registration Date: 07/21/18 Care time: The patient presented to the Emergency Department on the above date and was hospitalized for further evaluation of their emergent condition. - New Patient This patient is new to me today: No - Critical Care Critical Care patient: No
[2018-07-28 07:37] LABS: BASO % 0.5 % (0-2.0); HEMATOCRIT 25.8 % (32.4-45.2); MCH 31.4 pg (25.7-33.7); MCHC 34.8 g/dl (32.0-36.0); MEAN CELL VOLUME 90.1 fl (80-96); MEAN PLT VOLUME 8.1 fl (7.5-11.1); MONO % 7.3 % (3.8-10.2); NEUT % 50.2 % (42.8-82.8); PLATELET COUNT 288 K/MM3 (134-434); RBC 2.86 M/mm3 (3.60-5.2); RDW 13.8 % (11.6-15.6); WHITE BLOOD COUNT 5.2 K/mm3 (4.0-10.0)
--- NOTE | 2018-07-28 07:54 | PN ---
Teaching Attending Note Name of Resident: Gabriel Sheridan ATTENDING PHYSICIAN STATEMENT I saw and evaluated the patient. I reviewed the resident's note and discussed the case with the resident. I agree with the resident's findings and plan as documented. SUBJECTIVE: Patient is feeling better with no acute distress, no shortness of breath, no chills, no nausea or vomiting. OBJECTIVE: Vital Signs Temperature 98.2 F 07/28/18 06:00 Pulse Rate 52 L 07/27/18 22:00 Respiratory Rate 18 07/27/18 22:00 Blood Pressure 111/68 07/27/18 22:00 O2 Sat by Pulse Oximetry (%) 98 07/26/18 09:00 Initial Vital Signs Temp Pulse Resp BP 98.0 F 64 20 98/57 L 07/21/18 11:30 07/21/18 11:30 07/21/18 11:30 07/21/18 11:30 GENERAL: The patient is awake, alert, and fully oriented, in no acute distress. HEAD: Normal with no signs of trauma. EYES: PERRL, extraocular movements intact, sclera anicteric, conjunctiva clear. ENT: Ears normal, oropharynx clear without exudates, moist mucous membranes. NECK: Trachea midline, full range of motion, supple. LUNGS: Breath sounds equal, clear to auscultation bilaterally, no wheezes, no crackles, no accessory muscle use. HEART: Regular rate and rhythm, S1, S2 without murmur, rub or gallop. ABDOMEN: Soft, nontender, nondistended, normoactive bowel sounds, no guarding, no rebound, no hepatosplenomegaly, no masses. EXTREMITIES: 2+ pulses, warm, well-perfused, no edema. NEUROLOGICAL: Cranial nerves II through XII grossly intact. Normal speech, gait is stable. PSYCH: Normal mood, normal affect. SKIN: Warm, dry, normal turgor, no rashes or lesions noted CBCD WBC 5.2 K/mm3 (4.0-10.0) 07/28/18 06:35 RBC 2.86 M/mm3 (3.60-5.2) L 07/28/18 06:35 Hgb 9.0 GM/dL (10.7-15.3) L 07/28/18 06:35 Hct 25.8 % (32.4-45.2) L 07/28/18 06:35 MCV 90.1 fl (80-96) 07/28/18 06:35 MCHC 34.8 g/dl (32.0-36.0) 07/28/18 06:35 RDW 13.8 % (11.6-15.6) 07/28/18 06:35 Plt Count 288 K/MM3 (134-434) D 07/28/18 06:35 MPV 8.1 fl (7.5-11.1) 07/28/18 06:35 CMP Sodium 139 mmol/L (136-145) 07/27/18 05:30 Potassium 3.9 mmol/L (3.5-5.1) 07/27/18 05:30 Chloride 107 mmol/L (98-107) 07/27/18 05:30 Carbon Dioxide 26 mmol/L (21-32) 07/27/18 05:30 Anion Gap 6 MMOL/L (8-16) L 07/27/18 05:30 BUN 6 mg/dL (7-18) L 07/27/18 05:30 Creatinine 0.4 mg/dL (0.55-1.3) L 07/27/18 05:30 Creat Clearance w eGFR 191.47 (>60) 07/27/18 05:30 Random Glucose 73 mg/dL (74-106) L 07/27/18 05:30 Calcium 7.8 mg/dL (8.5-10.1) L 07/27/18 05:30 Total Bilirubin 0.4 mg/dL (0.2-1) 07/24/18 05:30 AST 28 U/L (15-37) 07/24/18 05:30 ALT 21 U/L (13-61) 07/24/18 05:30 Alkaline Phosphatase 127 U/L (45-117) H 07/24/18 05:30 Total Protein 4.1 g/dl (6.4-8.2) L 07/24/18 05:30 Albumin 1.6 g/dl (3.4-5.0) L 07/24/18 05:30 CARDIAC ENZYMES Creatine Kinase 72 U/L (26-192) 07/22/18 19:00 Home Medications Medication Instructions Recorded Vits96/Iron Fum/Folic 1 each PO DAILY 07/21/18 [ Tablet] Current Medications Generic Name Dose Route Start Last Admin Trade Name Freq PRN Reason Stop Dose Admin Benzocaine 1 spray 07/27/18 18:34 Americaine 20% [place] - TP PRN PRN PAIN Benzocaine 1 applic 07/27/18 18:34 Americaine Ointment - TP PRN PRN PAIN Bisacodyl 10 mg 07/27/18 18:34 Dulcolax Suppository - RC PRN PRN CONSTIPATION Enoxaparin Sodium 40 mg 07/28/18 10:00 07/28/18 10:10 Lovenox - SQ 40 mg DAILY YONAS Administration Ceftriaxone Sodium 2 gm/ 100 mls @ 200 mls/hr 07/28/18 10:00 07/28/18 12:02 Dextrose IVPB 200 mls/hr DAILY YONAS Administration Protocol Clindamycin Phosphate 600 mg in 50 mls @ 100 mls/hr 07/28/18 02:00 07/28/18 10:10 Cleocin 600 Mg Premix Ivpb - IVPB 100 mls/hr Q8H-IV YONAS Administration Protocol Senna/Docusate Sodium 2 tablet 07/27/18 22:00 Pericolace - PO HS PRN CONSTIPATION Witch Aline/Glycerin 1 pad 07/27/18 18:34 Tucks Pads - TP PRN PRN PAIN Microbiology 07/23/18 09:20 Blood - Peripheral Venous Blood Culture - Final NO GROWTH AFTER 5 DAYS INCUBATION 07/23/18 09:45 Blood - Peripheral Venous Blood Culture - Final NO GROWTH AFTER 5 DAYS INCUBATION 07/24/18 05:30 Blood - Peripheral Venous Blood Culture - Preliminary NO GROWTH OBTAINED AFTER 96 HOURS, INCUBATION TO CONTINUE FOR 1 DAYS. 07/24/18 05:45 Blood - Peripheral Venous Blood Culture - Preliminary NO GROWTH OBTAINED AFTER 96 HOURS, INCUBATION TO CONTINUE FOR 1 DAYS. 07/25/18 16:23 Blood - Peripheral Venous Blood Culture - Preliminary NO GROWTH OBTAINED AFTER 48 HOURS, INCUBATION TO CONTINUE FOR 3 DAYS. 07/25/18 16:18 Blood - Peripheral Venous Blood Culture - Preliminary NO GROWTH OBTAINED AFTER 48 HOURS, INCUBATION TO CONTINUE FOR 3 DAYS. 07/22/18 13:59 Blood - Peripheral Venous Blood Culture - Final Streptococcus Pyogenes Grp A 07/22/18 14:35 Urine - Urine Clean Catch Urine Culture - Final Streptococcus Pyogenes Grp A 07/22/18 13:53 Blood - Peripheral Venous Blood Culture - Final Streptococcus Pyogenes Grp A 07/22/18 15:25 Throat Throat Culture - Final NO BETA HEMOLYTIC STREPTOCOCCI ISOLATED CT scans reviewed. doubt PNA , she is already on Abx and do not suspect resistant organisms. CT abd read as enlarged appendix, but patient had appendectomy in 2017 ( surgical report reviewed, done by Dr. Parker ) ASSESSMENT AND PLAN: Patient is a 27 y/o lady with h/o asthma , s/p vaginal delivery on 07/21 who developed septic shock on 07/22 and was admitted to ICU # Septic shock, resolved. Patient is stable at this time. #Group A strep bacteremia on IV Abx as per ID, On Rocephin and clindamycin since allergic to PCN, further management as per ID. # Acute blood loss anemia: will transfuse for HB < 7 . stable HB # PMhx Asthma, not active discussed with ID, Dr. Shepherd , he will take care of the Picc line and the antibiotic order, since patient needs another week of IV antibiotic as per dr. shepherd. We will sign off the case. Thank you for the consult. DVT px: Lovenox
[2018-07-28 08:21] LABS: MAGNESIUM 2.2 mg/dL (1.8-2.4); PHOSPHOROUS 4.9 mg/dL (2.5-4.9); POTASSIUM 4.2 mmol/L (3.5-5.1)
[2018-07-28 09:56] LABS: CREATININE 0.4 mg/dL (0.55-1.3)
[2018-07-28] MEDS ORDERED: ENOXAPARIN NA (PORCINE) 40 MG/0.4 ML DISP.SYRIN SQ SCH (10:00)
[2018-07-28] MEDS ORDERED: CEFTRIAXONE 2 GM in DEXTROSE 5%-WATER 100 ML IVPB SCH (10:00)
[2018-07-28 10:08] LABS: ANISOCYTOSIS 1+; MACROCYTOSIS 0; PLATELET ESTIMATE NORMAL
--- NOTE | 2018-07-28 12:58 | PN ---
Post Progress Note Type of Delivery: Vital Signs: Vital Signs Temperature 98.2 F 07/28/18 06:00 Pulse Rate 52 L 07/27/18 22:00 Respiratory Rate 18 07/27/18 22:00 Blood Pressure 111/68 07/27/18 22:00 O2 Sat by Pulse Oximetry (%) 98 07/26/18 09:00 Breast Exam: Yes: Soft Uterus: Yes: Non-tender Abdomen/GI: Yes: Abdomen soft Lochia, amount: Small Extremities: Yes: Calves non-tender Perineum: Yes: Intact Activity: Ambulating - Labs Labs: CBC WBC 5.2 K/mm3 (4.0-10.0) 07/28/18 06:35 RBC 2.86 M/mm3 (3.60-5.2) L 07/28/18 06:35 Hgb 9.0 GM/dL (10.7-15.3) L 07/28/18 06:35 Hct 25.8 % (32.4-45.2) L 07/28/18 06:35 MCV 90.1 fl (80-96) 07/28/18 06:35 MCH 31.4 pg (25.7-33.7) 07/28/18 06:35 MCHC 34.8 g/dl (32.0-36.0) 07/28/18 06:35 RDW 13.8 % (11.6-15.6) 07/28/18 06:35 Plt Count 288 K/MM3 (134-434) D 07/28/18 06:35 MPV 8.1 fl (7.5-11.1) 07/28/18 06:35 Absolute Neuts (auto) 2.6 K/mm3 (1.5-8.0) 07/28/18 06:35 Total Counted 100 07/26/18 05:30 Neutrophils % 50.2 % (42.8-82.8) 07/28/18 06:35 Neutrophils % (Manual) 44.5 % (42.8-82.8) 07/28/18 06:35 Band Neutrophils % 1.0 % 07/28/18 06:35 Lymphocytes % 40.0 % (8-40) D 07/28/18 06:35 Lymphocytes % (Manual) 36.4 % (8-40) 07/28/18 06:35 Monocytes % 7.3 % (3.8-10.2) 07/28/18 06:35 Monocytes % (Manual) 8 % (3.8-10.2) 07/28/18 06:35 Eosinophils % 2.0 % (0-4.5) 07/28/18 06:35 Eosinophils % (Manual) 2.0 % (0-4.5) 07/28/18 06:35 Basophils % 0.5 % (0-2.0) 07/28/18 06:35 Basophils % (Manual) 0.0 % (0-2.0) 07/28/18 06:35 Myelocytes % (Man) 4 % (0-2) H D 07/28/18 06:35 Promyelocytes % (Man) 0 % (0-2) 07/28/18 06:35 Blast Cells % (Manual) 0 % (0-0) 07/28/18 06:35 Nucleated RBC % 0 % (0-0) 07/28/18 06:35 Metamyelocytes 1 % (0-2) 07/28/18 06:35 Hypochromia 0 07/28/18 06:35 Platelet Estimate Normal 07/28/18 06:35 Polychromasia 0 07/28/18 06:35 Poikilocytosis 0 07/28/18 06:35 Anisocytosis 1+ 07/28/18 06:35 Microcytosis 1+ 07/28/18 06:35 Macrocytosis 0 07/28/18 06:35 Acanthocytes (Spur) 1+ 07/23/18 05:30 Other Findings, Remarks: Patient is alert and oriented x3, seating up in chair. She reports feeling much better and denies any complaints. Problem List - Problems (1) Septic shock Code(s): A41.9 - SEPSIS, UNSPECIFIED ORGANISM; R65.21 - SEVERE SEPSIS WITH SEPTIC SHOCK (2) Status post vaginal delivery Code(s): HYS4612 - Assessment/Plan 27 y/o on PPD # 7 S/P uncomplicated precipitous VD complicated by septic shock on PPD # 1. Patient has had a prolonged hospital course including ICU admission. Multiple specialties on board including ID and medicine. Patient is clinically improved. -Reconvene with ID service in preparation for discharge plan -Continue current management
--- NOTE | 2018-07-28 14:14 | PN ---
Progress Note, Physician History of Present Illness: SEATED IN BED NO COMPLAINTS OFFERRED FEVER RESOLVED REPEAT BC HAVE BEEN NEGATIVE TOLERATING CEPHALOSPORIN - Current Medication List Current Medications: Active Medications Benzocaine (Americaine 20% [place] -) 1 spray TP PRN PRN PRN Reason: PAIN Benzocaine ([place]aine Ointment -) 1 applic TP PRN PRN PRN Reason: PAIN Bisacodyl (Dulcolax Suppository -) 10 mg RC PRN PRN PRN Reason: CONSTIPATION Enoxaparin Sodium (Lovenox -) 40 mg SQ DAILY YONAS Last Admin: 07/28/18 10:10 Dose: 40 mg Ceftriaxone Sodium 2 gm/ (Dextrose) 100 mls @ 200 mls/hr IVPB DAILY YONAS; Protocol Last Admin: 07/28/18 12:02 Dose: 200 mls/hr Clindamycin Phosphate (Cleocin 600 Mg Premix Ivpb -) 600 mg in 50 mls @ 100 mls /hr IVPB Q8H-IV YONAS; Protocol Last Admin: 07/28/18 10:10 Dose: 100 mls/hr Senna/Docusate Sodium (Pericolace -) 2 tablet PO HS PRN PRN Reason: CONSTIPATION Witch Aline/Glycerin (Tucks Pads -) 1 pad TP PRN PRN PRN Reason: PAIN - Objective Vital Signs: Vital Signs Temperature 98.2 F 07/28/18 06:00 Pulse Rate 52 L 07/27/18 22:00 Respiratory Rate 18 07/27/18 22:00 Blood Pressure 111/68 07/27/18 22:00 O2 Sat by Pulse Oximetry (%) 98 07/26/18 09:00 Constitutional: Yes: No Distress Eyes: Yes: Conjunctiva Clear Cardiovascular: Yes: Regular Rate and Rhythm, S1, S2 Respiratory: Yes: CTA Bilaterally Gastrointestinal: Yes: Normal Bowel Sounds, Soft. No: Tenderness Edema: No Labs: CBC, BMP 07/28/18 06:35 07/28/18 06:35 INR, PTT INR 1.14 (0.83-1.09) H 07/23/18 05:30 Assessment/Plan GRP A STREP BACTEREMIA/ SEPSIS SEPTIC SHOCK RESOLVED ? ENDOMETRITIS POST PCN ALLERGY CONTINUE CEFTRIAXONE D/C CLINDAMYCIN PICC FOR OUTPATIENT ANTIBIOTIC THERAPY CEFTRIAXONE 2GM IVPB Q24H X 8D
[2018-07-28 17:48] VITALS: BP 102/57; PULSE 65
[2018-07-28 18:27] VITALS: TEMP 98.6
== END 2018-07-28 20:55 | disposition home or self-care (01) | DRG 560 ==
LOC: JLDR 10:55 → J3W 15:17 → JICU 07-22 22:09 → J2W 07-24 17:28 → J3W 07-27 18:47
PROVIDERS: ADMIT Student in an Organized Health Care Education/Training Program; ATTEND Student in an Organized Health Care Education/Training Program
PROC: 10E0XZZ Delivery of Products of Conception, External Approach (ICD-10-PCS; principal; 2018-07-21)
PROC: 06HN33Z Insertion of Infusion Device into Left Femoral Vein, Percutaneous Approach (ICD-10-PCS; 2018-07-23)
PROC: B54CZZA Ultrasonography of Left Lower Extremity Veins, Guidance (ICD-10-PCS; 2018-07-23)
PROC: 02HV33Z Insertion of Infusion Device into Superior Vena Cava, Percutaneous Approach (ICD-10-PCS; 2018-07-23)
PROC: B518ZZA Fluoroscopy of Superior Vena Cava, Guidance (ICD-10-PCS; 2018-07-28)
DX: O48.0 Post-term pregnancy (principal); O86.4 Pyrexia of unknown origin following delivery; R00.0 Tachycardia, unspecified; E87.6 Hypokalemia; O90.89 Other complications of the puerperium, not elsewhere classified; I95.9 Hypotension, unspecified; O75.1 Shock during or following labor and delivery; O85 Puerperal sepsis; B95.0 Streptococcus, group A, as the cause of diseases classified elsewhere; E87.2 Acidosis; E83.51 Hypocalcemia; E83.42 Hypomagnesemia; E83.39 Other disorders of phosphorus metabolism; J45.909 Unspecified asthma, uncomplicated; D62 Acute posthemorrhagic anemia; J90 Pleural effusion, not elsewhere classified; Z3A.40 40 weeks gestation of pregnancy; Z37.0 Single live birth; Z88.0 Allergy status to penicillin
CPT/HCPCS: 36415; 36569; 36600; 59409; 71045-TC-FY; 71046-TC-FY; 71260-TC; 74177-TC; 76856-TC; 80048; 80053; 81003; 82550; 82803; 83605; 83735; 84100; 85025; 85027; 85610; 85730; 86593; 86850; 86900; 86901; 87040; 87070; 87086; 87186; 87804; 87880; 93306-TC; 93970-TC; G0480; J0131; J7030; Q9967